=== PATIENT | male | born 1965 | race African-American/Black ===

== ENCOUNTER 2018-06-22 16:27 | Inpatient (IN) | END 2018-07-01 12:33 | DRG 853 ==

== ENCOUNTER 2018-06-30 18:30 | Inpatient (IN) | payer MEDICARE, MEDICAID ==
[~2018-06-30] VITALS: Ht 185.4 cm; Wt 108.0 kg
[~2018-06-30 18:30] MED LIST: BUPR-165 PO; METH10TA2 PO; RANI150T5 PO
[2018-07-01 12:45] VITALS: BP 155/78; PULSE 76; RESP 18
[2018-07-01] MEDS ORDERED: ACETAMINOPHEN 325 MG TAB PO PRN (13:00)
[2018-07-01] MEDS ORDERED: PENDING SANTYL ORDER FOR WOUND CARE XX PRN (13:00)
[2018-07-01] MEDS ORDERED: BISACODYL 10 MG SUPP PR PRN (13:00)
[2018-07-01] MEDS ORDERED: MAGNESIUM HYDROXIDE 30ML CUP PO PRN (13:00)
[2018-07-01] MEDS ORDERED: LACTULOSE 30ML CUP PO PRN (13:00)
[2018-07-01] MEDS ORDERED: BISACODYL (EC) 5 MG TAB PO PRN (13:30)
--- NOTE | 2018-07-01 14:00 | NUR ---
Admitted a 52 year old male patient from [address] [place] [address] bed admitting diagnosis of Polyarthritis due to Sickle Cell Anemia. Patient awake, alert and oriented x4. No noted respiratory distress or discomfort. Dr. Patrica Whitney and ORLANDO Hodge aware of admission with order to continue medications per medication reconciliation. Patient oriented to new room & encouraged the use of call light. Initial skin assessment done together with another RN. Noted with multiple bruising on lower abdomen and right foot external fixator. Patient kept clean and dry. Needs attended and anticipated. Will endorse to next shift.
[2018-07-01] MEDS: HYDROmorphONE 2 MG/ML SYG IV PRN ×2 (14:44→19:01)
[2018-07-01 20:05] VITALS: BP 155/79; PULSE 75; RESP 18
[2018-07-01] MEDS: SENNA TAB PO SCH (21:00)
[2018-07-01] MEDS: DOCUSATE SODIUM 100 MG CAP PO SCH (21:00)
[2018-07-01] MEDS: FLUTICASONE 0.05% 16 GM NAS SPRAY NASAL SCH (21:01)
[2018-07-01] MEDS: RANITIDINE 150 MG TAB PO SCH (21:03)
[2018-07-01] MEDS: METHADONE 10 MG TAB PO SCH (21:03)
[2018-07-01] MEDS: BUPROPION (SR) 150 MG TAB PO SCH (21:06)
[2018-07-02] MEDS: HYDROmorphONE 2 MG/ML SYG IV PRN ×4 (01:18→18:11)
[2018-07-02 02:05] VITALS: BP 147/81; PULSE 71; RESP 18
[2018-07-02] MEDS: RANITIDINE 150 MG TAB PO SCH ×2 (06:13→20:20)
--- NOTE | 2018-07-02 06:56 | NUR ---
PATIENT SLEPT WELL. MEDICATED WITH DILAUDID IV X 2 FOR SEVERE PAIN IN RT ANKLE. RT ANKLE WITH EXTERNAL FIXATOR. RECREATIONAL ACTIVITIES PROVIDED TO PATIENT; WATCHING TV. CALL LIGHT WITHIN REACH
--- NOTE | 2018-07-02 07:34 | NUR ---
Received critical lab result (Hgb 6.9). Texted on-call Hospitalist via [employer] at 0715. Seen and spoke to patient and per patient who is alert and oriented the result was usual for him. Per patient he usually go between 6-7.1. Patient is asymptomatic. Spoke with Dr. Arnett at 0721 and relayed report with new order for CBC at noon. Will continue to monitor patient.
[2018-07-02 07:50] VITALS: BP 143/76; PULSE 83; RESP 18
[2018-07-02] MEDS: FLUTICASONE 0.05% 16 GM NAS SPRAY NASAL SCH ×2 (08:36→20:20)
[2018-07-02] MEDS: BUPROPION (SR) 150 MG TAB PO SCH ×3 (08:36→20:20)
[2018-07-02] MEDS: METHADONE 10 MG TAB PO SCH ×2 (08:37→20:20)
[2018-07-02] MEDS: DOCUSATE SODIUM 100 MG CAP PO SCH ×2 (08:37→20:20)
--- NOTE | 2018-07-02 10:25 | NUR ---
PT EVALUATION: A 52 yo male admitted for elective surgery on RLE, presented with B ankle varus deformity. Per pt report, had B ankle fracture about a year ago, which caused the ankle deformities but surgery was delayed d/t recurrent ulcerations. Now s/p Rt ankle fusion with bone graft and external fixator on 07/07/18. Per pt, plan to have surgery for LLE once RLE has healed. PMH: mood disorder, sickle cell anemia, GERD, chronic ankle deformities, cholecystectomy, B ankle varus deformity, acute renal failure. Now transferred to [facility] for continuation of care and rehab. Pt is alert and oriented, agreeable to PT jeffy, cleared by RN. PLOF: reports living in a single story house with his mom. Has strong support system. Was independent with transfers and ADL's. Has 3 small entry steps from the front door, 2 small entry steps from the back door. CLOF: see tech record. Educated on POC, safety, role of PT, RLE NWB, LLE PWB, sequencing with good understanding. Pt transferred from bed<>WC via sliding board and via scoot pivot transfer. Pt able to follow RLE NWB and LLE PWB. Precautions: fall risk, RLE NWB, LLE PWB Recommendations: manual WC with elevating leg rest and removable arm rests, drop arm commode, sliding board, hospital bed, ramp for stairs, home with HHPT STG: Bed Mobility CGA Transfers CGA WC mobility SUP 150ft LTG: Bed Mobility Mod Ind Transfers Mod Ind WC mobility Nod Ind 150ft
--- NOTE | 2018-07-02 12:04 | NUR ---
Left a message to the office of Dr. Crook covering for Dr. Metz letting them know that the patient was transferred here at Rehab and if they could check up on the patient with complaints of having drainage on the right foot.
--- NOTE | 2018-07-02 12:47 | HP ---
Date/Time of Note Date/Time of Note DATE: 07/02/18 TIME: 12:33 Assessment/Plan VTE Prophylaxis Risk score (from Nsg)>0 risk: 3 SCD applied (from Nsg): Yes Pharmacological prophylaxis: heparin Lines/Catheters IV Catheter Type (from Nrsg): Saline Lock Urinary Cath still in place: No Assessment/Plan Hospital Course SUBJECTIVE: Lying in bed comfortably. Somewhat upset about repeating blood draw. Denies any worsening pain or other discomfort. OBJECTIVE: Vital signs-see below PHYSICAL EXAM: Constitutional: Pleasant -[place] male not in acute distress.. Psych: nl mood/affect, no complaints Head: atraumatic, normocephalic Eyes: nl conjunctiva, nl sclera ENMT: mucosa pink and moist, nl external ears & nose Neck: non-tender, supple Respiratory: clear to auscultation, normal air movement Cardiovascular: nl pulses, regular rate and rhythm Gastrointestinal: non-tender, soft, bowel sounds active in all 4 quadrants. Musculoskeletal/extremities: Right foot w/ dressing/boot, status post fixation surgery. Nl extremities to inspection, motor strength equal bilaterally, no focal deficit. Normal pulses,no cyanosis, no edema. Neurological: Alert oriented 3,nl speech, nl strength Skin: nl turgor ASSESSMENT/PLAN: 52-year-old male with sickle cell anemia, underwent right foot podiatric surgical intervention transferred for further physical therapy. 1. Bilateral ankle deformity s/p surgical intervention 06/27/18 - s/p right tibiocalcaneal fusion with autologous bone graft and multiplane external fixator. Will need to remain in fixator for the next 2 months per podiatry. - PT on board and appreciate recommendations. 2. ALCON on CKD- stable - Baseline Cr 1.6-1.8 -Stable 3. Chronic leukocytosis. -Monitor 4. Chronic pain - Patient is on methadone as outpatient which is managed by his Notcher - Palliative care consult to adjust his pain medications 5. Mood disorder - Continue Wellbutrin TID 6. GERD - H2 eze 7. Sickle cell anemia - Hgb at baseline and no need for transfusions at this time given asymptomatic - Baseline hgb 6.7-7 DVT prophylaxis: Heparin PUD prophylaxis: H2 blockers CODE STATUS: Full code Diet: Regular. Patient is medically stable for starting physical therapy in the unit. Approximately 60 minutes was spent on this history and physical. Patient was seen in collaboration with . HPI/ROS Admit Date/Time Admit Date/Time Jul 01, 2018 at 12:50 Hx of Present Illness 52-year-old -[place] male with a history of sickle cell anemia, chronic ankle deformities, debility, was admitted at [facility] on June 22, 2018 for elective surgical intervention for bilateral ankle deformity by the kindergarten paraprofessional. Patient did underwent surgery she did underwent right tibial calcaneal fusion with autologous bone graft and application of multiplane external fixator on 06/27/2018. Her postoperative course was noted for acute kidney injury on CKD and anemia. Patient had nephrology, cardiology and hematology evaluation. As per switch house operator, patient has a baseline hemoglobin 6.7-7 and he is to receive transfusion only if he is symptomatic or under the baseline numbers. Patient was then evaluated by physical therapy and was recommended to have nonweightbearing on right foot and was transferred to acute rehabilitation unit for further comprehensive physical therapy. At my encounter with the patient, he denied chest pain, palpitation, shortness of breath, nausea, vomiting, abdominal pain, loss of consciousness, numbness, tingling, fever, chills, or other constitutional symptoms. Labs show WBC 12,100, hemoglobin 6.9, hematocrit 21.8 and a repeat lab showed WBC 14,200, hemoglobin 7.3, hematocrit 23.2. BMP with BUN 24 and creatinine 1.46. UA unremarkable. Vital signs temperature 98.5, pulse rate 83, respiratory rate 18, blood pressure 143/76 and oxygen saturation 97% on room air. ROS A 12 point review of system was assessed and is negative other than what is mentioned in the HPI. PMH/Family/Social Past Medical History see HPI Coded Allergies: No Known Allergy (Unverified , 06/22/18) Past Surgical History See HPI Past Surgical Hx: cholecystectomy, other Family History Significant Family History: other Social History No history of alcohol, smoking or illicit drug use reported. Smoking Status: Never smoker Exam/Review of Systems Vital Signs Vitals Vital Signs Date Temp Pulse Resp B/P (MAP) Pulse Ox O2 O2 Flow FiO2 Time Delivery Rate 07/02/18 98.5 83 18 143/76 97 Room Air 07:50 (98) Intake and Output 07/01/18 07/01/18 07/02/18 1414:59 22:59 06:59 IntakeIntake Total 240 ml OutputOutput Total 200 ml BalanceBalance 40 ml Medications Medications Current Medications Docusate Sodium (Colace) 100 mg BID PO ; Start 07/01/18 at 21:00 Senna (Senokot) 1 tab HS PO ; Start 07/01/18 at 21:00 Magnesium Hydroxide (Milk Of Mag) 30 ml BID PRN PO CONSTIPATION; Start 07/01/18 at 13:00 Lactulose (Enulose) 20 gm DAILY PRN PO CONSTIPATION; Start 07/01/18 at 13:00 Bisacodyl (Dulcolax Supp) 10 mg DAILY PRN [place] CONSTIPATION; Start 07/01/18 at 13:00 Acetaminophen (Tylenol Tab) 650 mg Q4H PRN PO PAIN; Start 07/01/18 at 13:00 [facility]isc[facility] This patient wong... PRN PRN XX wound; Start 07/01/18 at 13:00 Bisacodyl (Dulcolax) 5 mg BID PRN PO CONSTIPATION; Start 07/01/18 at 13:30 Bupropion HCl (Wellbutrin Sr) 150 mg TID PO Last administered on 07/02/18at 12:12; Admin Dose 150 MG; Start 07/01/18 at 21:00 Clonidine (Catapres) 0.1 mg Q6H PRN PO HTN; Start 07/01/18 at 13:30 Fluticasone Propionate (Flonase 0.05% Nasal) 1 spray BID NASAL Last administered on 07/02/18at 08:36; Admin Dose 1 SPRAY; Start 07/01/18 at 21:00 Hydromorphone HCl (Dilaudid) 4 mg Q4H PRN IV SEVERE PAIN LEVEL 7-10 Last administered on 07/02/18at 06:12; Admin Dose 4 MG; Start 07/01/18 at 13:30 Methadone HCl (Methadone) 50 mg BID PO Last administered on 07/02/18at 08:37; Admin Dose 50 MG; Start 07/01/18 at 21:00 Ranitidine HCl (Zantac) 150 mg BID PO Last administered on 07/02/18at 06:13; Admin Dose 150 MG; Start 07/01/18 at 21:00 Simethicone (Mylicon) 160 mg Q6H PRN PO ACID Reflux; Start 07/01/18 at 13:30 Results Result Diagram: 07/02/18 1139 07/02/18 0616 Results 24 hrs Laboratory Tests Test 07/01/18 13:40 07/02/18 06:16 07/02/18 11:39 Urine Color YELLOW Urine Clarity CLEAR Urine pH 6.0 Urine Specific [place] 1.011 Urine Ketones NEGATIVE Urine Nitrite NEGATIVE Urine Bilirubin NEGATIVE Urine Urobilinogen NEGATIVE Urine Leukocyte Esterase TRACE A Urine Microscopic RBC 0 Urine Microscopic WBC 0 Urine Hemoglobin NEGATIVE Urine Glucose NEGATIVE Urine Total Protein 1+ H White Blood Count 12.1 H 14.2 H Red Blood Count 2.47 L 2.64 L Hemoglobin 6.9 *L 7.3 L Hematocrit 21.8 L 23.2 L Mean Corpuscular Volume 88.3 87.9 Mean Corpuscular Hemoglobin 27.9 L 27.7 L Mean Corpuscular 31.7 L 31.5 L Hemoglobin Concent Red Cell Distribution Width 22.3 H 22.0 H Platelet Count 366 388 Mean Platelet Volume 10.2 9.9 Immature Granulocytes % 1.200 H 1.200 H Neutrophils % 63.3 72.6 Lymphocytes % 19.3 13.4 L Monocytes % 8.9 7.4 Eosinophils % 6.8 4.8 Basophils % 0.5 0.6 Nucleated Red Blood Cells % 1.4 H 1.3 H Immature Granulocytes # 0.140 H 0.170 H Neutrophils # 7.7 H 10.3 H Lymphocytes # 2.3 1.9 Monocytes # 1.1 H 1.1 H Eosinophils # 0.8 H 0.7 H Basophils # 0.1 0.1 Nucleated Red Blood Cells # 0.2 H 0.2 H Sodium Level 142 Potassium Level 4.7 Chloride Level 108 Carbon Dioxide Level 26 Anion Gap 8 Blood Urea Nitrogen 24 H Creatinine 1.46 H Est Glomerular Filtrat > 60 Rate mL/min Glucose Level 101 Calcium Level 8.9 Total Bilirubin 0.9 Direct Bilirubin 0.00 Indirect Bilirubin 0.9 Aspartate Amino 61 H Transf (AST/SGOT) Alanine 56 Aminotransferase (ALT/SGPT) Alkaline Phosphatase 118 Total Protein 6.6 Albumin 3.2 L Globulin 3.40 H Albumin/Globulin Ratio 0.94 MORA BETH NP Jul 02, 2018 12:47
--- NOTE | 2018-07-02 13:16 | CONS ---
DATE OF ADMISSION: 07/01/2018 DATE OF CONSULTATION: 07/02/2018 REHABILITATION POST-ADMISSION PHYSICIAN EVALUATION REHABILITATION IMPAIRMENT CATEGORY: Polyarthritis/joint derangement due to sickle cell anemia, statu s post right tibial calcaneal fusion with external fixator. ACTIVE COMORBIDITIES: 1. Acute on chronic pain syndrome. 2. Sickle cell anemia. 3. Chronic kidney disease. 4. Colitis. 5. Mood disorder. 6. Impairments in self-care and mobility. HISTORY OF PRESENT ILLNESS: The patient is a pleasant 52-year-old gentleman with a history of sickle cell anemia in addition to joint derangement, who had been noting severe right ankle pain despite co nservative measures. The patient was admitted and underwent right tibial calcaneal fusion with exter nal fixator placement. His hospital course has been notable for some wound drainage, acute pain synd [place], and significant impairments in self-care and mobility as compared to baseline. The patient has been cleared to transfer to the rehabilitation unit for comprehensive interdisciplinary rehab care. FUNCTIONAL HISTORY: Prior to recent events, he was independent in self-care tasks and mobility. Cur rently, he requires minimal to moderate assist for self-care and mobility tasks. I have reviewed the preadmission screen and the patient's current functional status is consistent wit h the preadmission screen. FAMILY AND SOCIAL HISTORY: The patient lives at home with family and hopes to return there upon disc harge. PAST MEDICAL HISTORY: 1. Sickle cell anemia with joint derangement. 2. Gastroesophageal reflux disease. 3. Mood disorder. 4. History of colitis. CURRENT MEDICATIONS: 1. Wellbutrin 150 mg p.o. t.i.d. 2. Flonase. 3. Dilaudid p.r.n. 4. Methadone 50 mg b.i.d. 5. Simethicone p.r.n. ALLERGIES: The patient with no known drug allergies. PHYSICAL EXAMINATION: VITAL SIGNS: The patient is currently afebrile with stable vital signs. HEENT: Extraocular motions are intact. Oropharynx clear. NECK: Supple. LUNGS: Clear anteriorly. CARDIAC: S1, S2. ABDOMEN: Soft, nontender, positive bowel sounds. NEUROLOGIC: He is awake, alert and oriented x3, can follow simple 1-step commands. Cranial nerves g rossly intact. He demonstrates antigravity strength in bilateral upper extremity and the left lower extremity, external fixator on the right lower extremity. PLAN: The patient has been admitted for comprehensive interdisciplinary acute rehab and is anticipat ed to tolerate 3 hours of daily therapy in divided doses for at least 5/7 days a week. Treatment drew n will include: 1. Physical therapy to focus on bed mobility, transfers, wheelchair mobility, and limited household ambulation with the goal of having the patient reach a standby assist level. 2. Occupational therapy to focus on hygiene, grooming, dressing, bathing, and toileting activities w ith goal of having patient reach standby assist level. 3. Rehabilitation nursing for carryover of therapeutic interventions, the goal of continent of bowel and bladder, and the goal of pain adequately managed on oral medications. ESTIMATED LENGTH OF STAY: 10 days. DISPOSITION GOAL: Home with family. REHABILITATION BARRIER: Pain. INTERVENTION FOR BARRIER: Interdisciplinary approach. I acknowledge that I performed a full physical examination on this patient within 24 hours of admissi on to the rehabilitation unit. I believe the patient is a good candidate for comprehensive interdisc iplinary rehab care and is anticipated to make reasonable goals in a reasonable period of time as out lined above. Dictated By: FREDERIC SILVA MD LY/NTS Conf#: [id number] DID#: [id number] CC: FREDERIC SILVA MD;*EndCC*
--- NOTE | 2018-07-02 15:17 | NUR ---
Dr. Metz at bedside and spoke with the patient with instruction to keep the affected foot elevated with pillows and ice compress for swelling.
--- NOTE | 2018-07-02 15:55 | NUR ---
Education and explanation provided regarding Therapeutic Outing and provided the handout as well.
--- NOTE | 2018-07-02 16:04 | CONS ---
Date/Time of Note Date/Time of Note DATE: 07/02/18 TIME: 16:04 Assessment/Plan Assessment/Plan Additional Assessment/Plan 1) Adult acquired club foot deformity b/l s/p RLE hindfoot fusion and application of ex-fix 2) Sickle cell anemia 3) Edema RLE 4) Chronic pain 5) Leukocytosis Plan: Recommend patient to be non-weight right lower extremity. Only use left lower extremity for transfers. Continue with pain control. Emphasized nursing staff to elevate right lower extremity with pillows and to ice the area. X-rays ordered due to the bent wires of the right foot. Patient does not recall any inciting event leading to the bent wires. Safety precautions reinforced. Continue with DVT prophylaxis. Medical decisions, treatment, and plan coordinated with Dr. Crook. Consultation Date/Type/Reason Admit Date/Time Jul 01, 2018 at 12:50 Hx of Present Illness 52 y/o M patient with hx of sickle cell anemia and bilateral adult acquired club foot deformity. Patient had hindfoot arthrodesis with application of ilizarov external fixator on 06/27/18. Patient is at the acute rehab floor for further physical therapy and monitoring. Patient noted clear draining to this dressings. Denies f/c/n/v, no chest pain or shortness of breath. Denies any damage or trauma to the surgery site. ROS: negative except HPI. Past Medical History sickle cell anemia, adult acquired club foot deformity b/l Past Surgical History Past Surgical Hx: cholecystectomy, other Social History Alcohol Use: none Smoking Status: Never smoker Exam/Review of Systems Vital Signs Vitals Vital Signs Date Temp Pulse Resp B/P (MAP) Pulse Ox O2 O2 Flow FiO2 Time Delivery Rate 07/02/18 98.5 83 18 143/76 97 Room Air 07:50 (98) Intake and Output 07/01/18 07/01/18 07/02/18 1414:59 22:59 06:59 IntakeIntake Total 240 ml OutputOutput Total 200 ml BalanceBalance 40 ml Exam Plantar pins which appear bent. Ex-fix in rectus alignment. No sign of wound dehiscence to the incision site. Non-pitting edema to the right lower extremity. There is serous drainage noted to the pin site. Mild pain on palpation to right lower extremity surgery site. There is no loosening of the ex-fix appreciated. Capillary refill time to digits less than 3 seconds. Medications Medications Current Medications Docusate Sodium (Colace) 100 mg BID PO ; Start 07/01/18 at 21:00 Senna (Senokot) 1 tab HS PO ; Start 07/01/18 at 21:00 Magnesium Hydroxide (Milk Of Mag) 30 ml BID PRN PO CONSTIPATION; Start 07/01/18 at 13:00 Lactulose (Enulose) 20 gm DAILY PRN PO CONSTIPATION; Start 07/01/18 at 13:00 Bisacodyl (Dulcolax Supp) 10 mg DAILY PRN [place] CONSTIPATION; Start 07/01/18 at 13:00 Acetaminophen (Tylenol Tab) 650 mg Q4H PRN PO PAIN; Start 07/01/18 at 13:00 Miscellaneous Information (Pending [facility] Order For Wound Care) This patient wong... PRN PRN XX wound; Start 07/01/18 at 13:00 Bisacodyl (Dulcolax) 5 mg BID PRN PO CONSTIPATION; Start 07/01/18 at 13:30 Bupropion HCl (Wellbutrin Sr) 150 mg TID PO Last administered on 07/02/18at 12:12; Admin Dose 150 MG; Start 07/01/18 at 21:00 Clonidine (Catapres) 0.1 mg Q6H PRN PO HTN; Start 07/01/18 at 13:30 Fluticasone Propionate (Flonase 0.05% Nasal) 1 spray BID NASAL Last administered on 07/02/18at 08:36; Admin Dose 1 SPRAY; Start 07/01/18 at 21:00 Hydromorphone HCl (Dilaudid) 4 mg Q4H PRN IV SEVERE PAIN LEVEL 7-10 Last administered on 07/02/18at 13:57; Admin Dose 4 MG; Start 07/01/18 at 13:30 Methadone HCl (Methadone) 50 mg BID PO Last administered on 07/02/18at 08:37; Admin Dose 50 MG; Start 07/01/18 at 21:00 Ranitidine HCl (Zantac) 150 mg BID PO Last administered on 07/02/18at 06:13; Admin Dose 150 MG; Start 07/01/18 at 21:00 Simethicone (Mylicon) 160 mg Q6H PRN PO ACID Reflux; Start 07/01/18 at 13:30 Heparin Sodium (Porcine) (Heparin (5000 Units/1ml)) 5,000 unit BID SC ; Start 07/02/18 at 21:00 Results Result Diagram: 07/02/18 1139 07/02/18 0616 Results 24 hrs Laboratory Tests Test 07/02/18 06:16 07/02/18 11:39 White Blood Count 12.1 H 14.2 H Red Blood Count 2.47 L 2.64 L Hemoglobin 6.9 *L 7.3 L Hematocrit 21.8 L 23.2 L Mean Corpuscular Volume 88.3 87.9 Mean Corpuscular Hemoglobin 27.9 L 27.7 L Mean Corpuscular Hemoglobin Concent 31.7 L 31.5 L Red Cell Distribution Width 22.3 H 22.0 H Platelet Count 366 388 Mean Platelet Volume 10.2 9.9 Immature Granulocytes % 1.200 H 1.200 H Neutrophils % 63.3 72.6 Lymphocytes % 19.3 13.4 L Monocytes % 8.9 7.4 Eosinophils % 6.8 4.8 Basophils % 0.5 0.6 Nucleated Red Blood Cells % 1.4 H 1.3 H Immature Granulocytes # 0.140 H 0.170 H Neutrophils # 7.7 H 10.3 H Lymphocytes # 2.3 1.9 Monocytes # 1.1 H 1.1 H Eosinophils # 0.8 H 0.7 H Basophils # 0.1 0.1 Nucleated Red Blood Cells # 0.2 H 0.2 H Sodium Level 142 Potassium Level 4.7 Chloride Level 108 Carbon Dioxide Level 26 Anion Gap 8 Blood Urea Nitrogen 24 H Creatinine 1.46 H Est Glomerular Filtrat Rate mL/min > 60 Glucose Level 101 Calcium Level 8.9 Total Bilirubin 0.9 Direct Bilirubin 0.00 Indirect Bilirubin 0.9 Aspartate Amino Transf (AST/SGOT) 61 H Alanine Aminotransferase (ALT/SGPT) 56 Alkaline Phosphatase 118 Total Protein 6.6 Albumin 3.2 L Globulin 3.40 H Albumin/Globulin Ratio 0.94 MARCELINA COATES DPM Jul 02, 2018 16:04
--- NOTE | 2018-07-02 18:58 | NUR ---
End of shift summary note Patient alert, oriented and able to make needs known with complaints of pain during the shift and was provided with pain medication; relief noted. All due medications given. Call light and bedside table placed within reach. Bed placed in lowest position. Recreational activity provided like watching TV. Needs attended and continues monitoring provided. Will endorse to next shift.
[2018-07-02] MEDS ORDERED: HEPARIN 5,000 UNIT/0.5 ML VIAL ONE (20:12)
[2018-07-02 20:18] VITALS: BP 143/7; PULSE 82; RESP 18
[2018-07-02] MEDS: SENNA TAB PO SCH (20:20)
[2018-07-02] MEDS: HEPARIN 5,000 UNIT/1 ML VIAL SC SCH (20:23)
[2018-07-03] MEDS: HYDROmorphONE 2 MG/ML SYG IV PRN ×6 (00:28→23:29)
[2018-07-03 02:15] VITALS: BP 140/65; PULSE 75
--- NOTE | 2018-07-03 06:01 | NUR ---
Pt is alert & oriented x4. No significant changes noted during my shift. Pt complained of right leg pain and medicated with PRN Dilaudid with relief noted. Pt is continent of both bowel and bladder; no BM noted. All due medications and all needs attended. Hourly roundings done. Bed alarm activated. Both side rails up and call light within reach.
[2018-07-03 08:00] VITALS: BP 128/68; PULSE 86; RESP 18
[2018-07-03] MEDS ORDERED: HEPARIN 5,000 UNIT/0.5 ML VIAL ONE ×2 (08:15→20:24)
[2018-07-03] MEDS: DOCUSATE SODIUM 100 MG CAP PO SCH ×2 (08:29→21:05)
[2018-07-03] MEDS: BUPROPION (SR) 150 MG TAB PO SCH ×3 (08:29→21:06)
[2018-07-03] MEDS: RANITIDINE 150 MG TAB PO SCH ×2 (08:29→21:06)
[2018-07-03] MEDS: METHADONE 10 MG TAB PO SCH ×2 (08:30→21:05)
[2018-07-03] MEDS: HEPARIN 5,000 UNIT/1 ML VIAL SC SCH ×2 (08:31→21:31)
--- NOTE | 2018-07-03 09:02 | CONS ---
Date/Time of Note Date/Time of Note DATE: 07/03/18 TIME: 09:01 Consultation Date/Type/Reason Admit Date/Time Jul 01, 2018 at 12:50 Hx of Present Illness Assessment/Plan Initial Consultation HPI Consultation Date/Type/Reason Admit Date/Time Jun 22, 2018 at 16:27 Hx of Present Illness Patient has been moved to rehabilitation kwong. Apparently the screws in his ankle and according to patient and he is waiting for the results of imaging s tudies done yesterday. He requests no change in his current pain control medications until studies return and orthopedic surgery makes the recommendation. Sickle cell symptoms are under control. This is a very pleasant 52-year-old gentleman who presents to [facility] for elective right ankle ORIF. Please refer to dictated details of upcoming surgical intervention. I am asked to see patient in pain management consultation. This gentleman has a long-standing history of sickle cell disease SS diagnosed in childhood. He has approximately 4 crises per year which she is able to treat effectively at home without hospitalization. He has had applications related to sickle cell including bilateral lower extremity vaso-occlusive disease right lung pneumonia with pleural effusion status post cholecystectomy. As a child he has had one bout of osteomyelitis. Of his left lower extremity. She currently is pain-free. Purpose of the consultation is to get an outpatient and to control his pain postoperatively. He has been admitted and is being transfused in preparation for upcoming surgical procedure. Patient is currently pain control medication given to him by his primary care sewage plant attendant include methadone 10 mg to be taken 5 pills twice daily scheduled. States he has been on this regimen for prolonged period of time he tries to avoid short acting opioids during hospitalization has quite a use of Dilaudid as necessary. Once again patient is pain-free at this time. He has no past medical history of IV drug abuse. He is not a smoker nor drinker he does not be appear to be unkempt or impaired in any manner is not advocating the use of high doses of short acting opioids per noisy insisting on certain pain control medications. There is no past medical history of contact with street drug culture, adamantly adamantly denies illicit drug use. Constitutional: no complaints, improved Eyes: no complaints; No pain, No discharge, No redness, No visual change, No other ENT: no complaints Respiratory: no complaints; No pain, No cough, No pleuritic pain, No shortness of breath, No sputum, No wheezing, No other Cardiovascular: no complaints; No chest pain, No edema, No lightheadedness, No orthopenea, No palpitations, No paroxysmal nocturnal dyspnea, No other Gastrointestinal: no complaints; No pain, No blood, No constipation, No decreased appetite, No diarrhea, No flatus, No nausea, No passing stool, No vomiting, No other Genitourinary: no complaints; No bleeding, No dysuria, No discharge, No flank pain, No hematuria, No other Musculoskeletal: other (Refer to history of present illness) Initial Consultation Hx Past Medical History Medical History: other (Elsa syndrome and depression) Past Surgical History Past Surgical Hx: cholecystectomy, other Social History Alcohol Use: none Smoking Status: Never smoker Drug Use: none Exam/Review of Systems Exam/Review of Systems Vital Signs Vitals Vital Signs Date Temp Pulse Resp B/P (MAP) Pulse Ox O2 O2 Flow FiO2 Time Delivery Rate 07/01/18 98.2 85 18 133/79 100 Room Air 07:18 (97) Exam Constitutional: alert, oriented, well developed Psych: no complaints, nl mood/affect ENMT: nl external ears & nose, nl lips & teeth, nl nasal mucosa & septum Respiratory: clear to auscultation, normal air movement; No congested cough, No crackles/rales, No diminished breath sounds, No intercostal retraction, No labored breathing, No respirations, No tactile fremitus, No wheezing, No other Cardiovascular: regular rate and rhythm, nl pulses; No bruits, No diastolic murmur, No edema, No gallop, No irregular rhythm, No jugular venous distention (JVD), No murmurs/extra sounds, No rub, No systolic murmur, No S3, No S4, No other Neurological: REMOTE ADVISOR II-XII intact, nl mental status, nl speech, nl strength Results Result Diagram: 07/01/18 1202 07/01/18 0435 Copies To: Copies To: PETROS LÓPEZ Jul 03, 2018 08:59 Past Surgical History Past Surgical Hx: cholecystectomy, other Social History Alcohol Use: none Smoking Status: Never smoker Exam/Review of Systems Vital Signs Vitals Vital Signs Date Temp Pulse Resp B/P (MAP) Pulse Ox O2 O2 Flow FiO2 Time Delivery Rate 07/03/18 98.1 75 140/65 98 Room Air 02:15 (90) 07/02/18 18 20:18 Intake and Output 07/02/18 07/02/18 07/03/18 1515:00 23:00 07:00 IntakeIntake Total 300 ml 800 ml OutputOutput Total 800 ml 530 ml 2180 ml BalanceBalance -500 ml 270 ml -2180 ml Medications Medications Current Medications Docusate Sodium (Colace) 100 mg BID PO Last administered on 07/03/18at 08:29; Admin Dose 100 MG; Start 07/01/18 at 21:00 Senna (Senokot) 1 tab HS PO Last administered on 07/02/18at 20:20; Admin Dose 1 TAB; Start 07/01/18 at 21:00 Magnesium Hydroxide (Milk Of Mag) 30 ml BID PRN PO CONSTIPATION; Start 07/01/18 at 13:00 Lactulose (Enulose) 20 gm DAILY PRN PO CONSTIPATION; Start 07/01/18 at 13:00 Bisacodyl (Dulcolax Supp) 10 mg DAILY PRN [place] CONSTIPATION; Start 07/01/18 at 13:00 Acetaminophen (Tylenol Tab) 650 mg Q4H PRN PO PAIN; Start 07/01/18 at 13:00 Miscellaneous Information (Pending [facility] Order For Wound Care) This patient wong... PRN PRN XX wound; Start 07/01/18 at 13:00 Bisacodyl (Dulcolax) 5 mg BID PRN PO CONSTIPATION; Start 07/01/18 at 13:30 Bupropion HCl (Wellbutrin Sr) 150 mg TID PO Last administered on 07/03/18at 08:29; Admin Dose 150 MG; Start 07/01/18 at 21:00 Clonidine (Catapres) 0.1 mg Q6H PRN PO HTN; Start 07/01/18 at 13:30 Fluticasone Propionate (Flonase 0.05% Nasal) 1 spray BID NASAL Last administered on 07/02/18at 20:20; Admin Dose 1 SPRAY; Start 07/01/18 at 21:00 Hydromorphone HCl (Dilaudid) 4 mg Q4H PRN IV SEVERE PAIN LEVEL 7-10 Last administered on 07/03/18at 08:28; Admin Dose 4 MG; Start 07/01/18 at 13:30 Methadone HCl (Methadone) 50 mg BID PO Last administered on 07/03/18at 08:30; Admin Dose 50 MG; Start 07/01/18 at 21:00 Ranitidine HCl (Zantac) 150 mg BID PO Last administered on 07/03/18at 08:29; Admin Dose 150 MG; Start 07/01/18 at 21:00 Simethicone (Mylicon) 160 mg Q6H PRN PO ACID Reflux; Start 07/01/18 at 13:30 Heparin Sodium (Porcine) (Heparin (5000 Units/1ml)) 5,000 unit BID SC Last administered on 07/03/18at 08:31; Admin Dose 5,000 UNIT; Start 07/02/18 at 21:00 Results Result Diagram: 07/02/18 1139 07/02/18 0616 Results 24 hrs Laboratory Tests Test 07/02/18 11:39 White Blood Count 14.2 H Red Blood Count 2.64 L Hemoglobin 7.3 L Hematocrit 23.2 L Mean Corpuscular Volume 87.9 Mean Corpuscular Hemoglobin 27.7 L Mean Corpuscular Hemoglobin Concent 31.5 L Red Cell Distribution Width 22.0 H Platelet Count 388 Mean Platelet Volume 9.9 Immature Granulocytes % 1.200 H Neutrophils % 72.6 Lymphocytes % 13.4 L Monocytes % 7.4 Eosinophils % 4.8 Basophils % 0.6 Nucleated Red Blood Cells % 1.3 H Immature Granulocytes # 0.170 H Neutrophils # 10.3 H Lymphocytes # 1.9 Monocytes # 1.1 H Eosinophils # 0.7 H Basophils # 0.1 Nucleated Red Blood Cells # 0.2 H PETROS LÓPEZ Jul 03, 2018 09:02
[2018-07-03] MEDS: FLUTICASONE 0.05% 16 GM NAS SPRAY NASAL SCH ×2 (10:23→21:00)
--- NOTE | 2018-07-03 12:17 | PN ---
Date/Time of Note Date/Time of Note DATE: 07/03/18 TIME: 12:15 Assessment/Plan VTE Prophylaxis Risk score (from Nsg)>0 risk: 5 SCD applied (from Ns): Yes Pharmacological prophylaxis: heparin Lines/Catheters IV Catheter Type (from Nrsg): Saline Lock Urinary Cath still in place: No Assessment/Plan Assessment/Plan Pt is doing well after surgery. Hgb is stable and no transfusion suggested now. I will follow intermittently. Please contact if there are any questions. Subjective 24 Hr Interval Summary Free Text/Dictation Pt is transferred to Rehab. He is not weight bearing on the operated foot. Exam/Review of Systems Vital Signs Vitals Vital Signs Date Temp Pulse Resp B/P (MAP) Pulse Ox O2 O2 Flow FiO2 Time Delivery Rate 07/03/18 98.2 86 18 128/68 98 Room Air 08:00 (88) Intake and Output 07/02/18 07/02/18 07/03/18 1515:00 23:00 07:00 IntakeIntake Total 300 ml 800 ml OutputOutput Total 800 ml 530 ml 2180 ml BalanceBalance -500 ml 270 ml -2180 ml Exam Constitutional: alert, oriented Head: normocephalic Eyes: other (pallor) Neck: supple Respiratory: clear to auscultation Cardiovascular: regular rate and rhythm Gastrointestinal: soft, non-tender Extremities: other (right foot dressed from surgery) Medications Medications Current Medications Docusate Sodium (Colace) 100 mg BID PO Last administered on 07/03/18at 08:29; Admin Dose 100 MG; Start 07/01/18 at 21:00 Senna (Senokot) 1 tab HS PO Last administered on 07/02/18at 20:20; Admin Dose 1 TAB; Start 07/01/18 at 21:00 Magnesium Hydroxide (Milk Of Mag) 30 ml BID PRN PO CONSTIPATION; Start 07/01/18 at 13:00 Lactulose (Enulose) 20 gm DAILY PRN PO CONSTIPATION; Start 07/01/18 at 13:00 Bisacodyl (Dulcolax Supp) 10 mg DAILY PRN [place] CONSTIPATION; Start 07/01/18 at 13:00 Acetaminophen (Tylenol Tab) 650 mg Q4H PRN PO PAIN; Start 07/01/18 at 13:00 Miscellaneous Information (Pending [facility] Order For Wound Care) This patient wong... PRN PRN XX wound; Start 07/01/18 at 13:00 Bisacodyl (Dulcolax) 5 mg BID PRN PO CONSTIPATION; Start 07/01/18 at 13:30 Bupropion HCl (Wellbutrin Sr) 150 mg TID PO Last administered on 07/03/18 08:29; Admin Dose 150 MG; Start 07/01/18 at 21:00 Clonidine (Catapres) 0.1 mg Q6H PRN PO HTN; Start 07/01/18 at 13:30 Fluticasone Propionate (Flonase 0.05% Nasal) 1 spray BID NASAL Last administered on 07/03/18 10:23; Admin Dose 1 SPRAY; Start 07/01/18 at 21:00 Hydromorphone HCl (Dilaudid) 4 mg Q4H PRN IV SEVERE PAIN LEVEL 7-10 Last administered on 07/03/18 08:28; Admin Dose 4 MG; Start 07/01/18 at 13:30 Methadone HCl (Methadone) 50 mg BID PO Last administered on 07/03/18 08:30; Admin Dose 50 MG; Start 07/01/18 at 21:00 Ranitidine HCl (Zantac) 150 mg BID PO Last administered on 07/03/18 08:29; Admin Dose 150 MG; Start 07/01/18 at 21:00 Simethicone (Mylicon) 160 mg Q6H PRN PO ACID Reflux; Start 07/01/18 at 13:30 Heparin Sodium (Porcine) (Heparin (5000 Units/1ml)) 5,000 unit BID SC Last administered on 07/03/18at 08:31; Admin Dose 5,000 UNIT; Start 07/02/18 at 21:00 Results Result Diagram: 07/02/18 1139 07/02/18 0616 MELBA CHÁVEZ MD Jul 03, 2018 12:17
--- NOTE | 2018-07-03 12:38 | PN ---
Date/Time of Note Date/Time of Note DATE: 07/03/18 TIME: 12:33 Assessment/Plan VTE Prophylaxis Risk score (from Nsg)>0 risk: 5 SCD applied (from Nsg): Yes Pharmacological prophylaxis: heparin Lines/Catheters IV Catheter Type (from Nrsg): Saline Lock Urinary Cath still in place: No Assessment/Plan Hospital Course SUBJECTIVE: No acute episodes. Pain is controlled. Participating with physical therapy. OBJECTIVE: Vital signs-see below PHYSICAL EXAM: Constitutional: Pleasant -Armenian male not in acute distress.. Psych: nl mood/affect, no complaints Head: atraumatic, normocephalic Eyes: nl conjunctiva, nl sclera ENMT: mucosa pink and moist, nl external ears & nose Neck: non-tender, supple Respiratory: clear to auscultation, normal air movement Cardiovascular: nl pulses, regular rate and rhythm Gastrointestinal: non-tender, soft, bowel sounds active in all 4 quadrants. Musculoskeletal/extremities: Right foot w/ dressing/boot, status post fixation surgery. Nl extremities to inspection, motor strength equal bilaterally, no focal deficit. Normal pulses,no cyanosis, no edema. Neurological: Alert oriented 3,nl speech, nl strength Skin: nl turgor ASSESSMENT/PLAN: 52-year-old male with sickle cell anemia, underwent right foot podiatric surgical intervention transferred for further physical therapy. 1. Bilateral ankle deformity s/p surgical intervention 06/27/18 - s/p right tibiocalcaneal fusion with autologous bone graft and multiplane external fixator. Will need to remain in fixator for the next 2 months per podiatry. - PT on board and appreciate recommendations. 2. ALCON on CKD- stable - Baseline Cr 1.6-1.8 -Stable 3. Chronic leukocytosis. -Monitor 4. Chronic pain - Patient is on methadone as outpatient which is managed by his Dairy Products Maker - On Dilaudid for breakthrough pain as well,Palliative care managing pain medications 5. Mood disorder - Continue Wellbutrin TID 6. GERD - H2 eze 7. Sickle cell anemia - Baseline hgb 6.7-7 -stable. DVT prophylaxis: Heparin PUD prophylaxis: H2 blockers CODE STATUS: Full code Diet: Regular. Patient was seen in collaboration with . Exam/Review of Systems Vital Signs Vitals Vital Signs Date Temp Pulse Resp B/P (MAP) Pulse Ox O2 O2 Flow FiO2 Time Delivery Rate 07/03/18 98.2 86 18 128/68 98 Room Air 08:00 (88) Intake and Output 07/02/18 07/02/18 07/03/18 1515:00 23:00 07:00 IntakeIntake Total 300 ml 800 ml OutputOutput Total 800 ml 530 ml 2180 ml BalanceBalance -500 ml 270 ml -2180 ml Medications Medications Current Medications Docusate Sodium (Colace) 100 mg BID PO Last administered on 07/03/18at 08:29; Admin Dose 100 MG; Start 07/01/18 at 21:00 Senna (Senokot) 1 tab HS PO Last administered on 07/02/18at 20:20; Admin Dose 1 TAB; Start 07/01/18 at 21:00 Magnesium Hydroxide (Milk Of Mag) 30 ml BID PRN PO CONSTIPATION; Start 07/01/18 at 13:00 Lactulose (Enulose) 20 gm DAILY PRN PO CONSTIPATION; Start 07/01/18 at 13:00 Bisacodyl (Dulcolax Supp) 10 mg DAILY PRN [place] CONSTIPATION; Start 07/01/18 at 13:00 Acetaminophen (Tylenol Tab) 650 mg Q4H PRN PO PAIN; Start 07/01/18 at 13:00 Miscellaneous Information (Pending [facility] Order For Wound Care) This patient wong... PRN PRN XX wound; Start 07/01/18 at 13:00 Bisacodyl (Dulcolax) 5 mg BID PRN PO CONSTIPATION; Start 07/01/18 at 13:30 Bupropion HCl (Wellbutrin Sr) 150 mg TID PO Last administered on 07/03/18at 08:29; Admin Dose 150 MG; Start 07/01/18 at 21:00 Clonidine (Catapres) 0.1 mg Q6H PRN PO HTN; Start 07/01/18 at 13:30 Fluticasone Propionate (Flonase 0.05% Nasal) 1 spray BID NASAL Last administered on 07/03/18at 10:23; Admin Dose 1 SPRAY; Start 07/01/18 at 21:00 Hydromorphone HCl (Dilaudid) 4 mg Q4H PRN IV SEVERE PAIN LEVEL 7-10 Last administered on 07/03/18at 08:28; Admin Dose 4 MG; Start 07/01/18 at 13:30 Methadone HCl (Methadone) 50 mg BID PO Last administered on 07/03/18at 08:30; Admin Dose 50 MG; Start 07/01/18 at 21:00 Ranitidine HCl (Zantac) 150 mg BID PO Last administered on 07/03/18at 08:29; Admin Dose 150 MG; Start 07/01/18 at 21:00 Simethicone (Mylicon) 160 mg Q6H PRN PO ACID Reflux; Start 07/01/18 at 13:30 Heparin Sodium (Porcine) (Heparin (5000 Units/1ml)) 5,000 unit BID SC Last administered on 07/03/18at 08:31; Admin Dose 5,000 UNIT; Start 07/02/18 at 21:00 Results Result Diagram: 07/02/18 1139 07/02/18 0616 MORA BETH NP Jul 03, 2018 12:38
[2018-07-03 14:00] VITALS: BP 138/78; PULSE 80; RESP 18
--- NOTE | 2018-07-03 18:05 | PN ---
Date/Time of Note Date/Time of Note DATE: 07/03/18 TIME: 18:05 Assessment/Plan VTE Prophylaxis Risk score (from Ns)>0 risk: 3 SCD applied (from Ns): Yes Pharmacological prophylaxis: heparin Lines/Catheters IV [facility]from [facility] Saline Lock Assessment/Plan Hospital Course 52 y/o M patient with hx of sickle cell anemia and bilateral adult acquired club foot deformity. Patient had hindfoot arthrodesis with application of ilizarov external fixator on 06/27/18. Patient is at the acute rehab floor for further physical therapy and monitoring. Patient noted clear draining to this dressings. Denies f/c/n/v, no chest pain or shortness of breath. Denies any damage or trauma to the surgery site. Assessment/Plan 1) Adult acquired club foot deformity b/l s/p RLE hindfoot fusion and application of ex-fix 2) Sickle cell anemia 3) Edema RLE 4) Chronic pain 5) Leukocytosis Plan: Recommend patient to be non-weight right lower extremity. Only use left lower extremity for transfers. Continue with pain control. Emphasized nursing staff to elevate right lower extremity with pillows and or soft wedge elevator. X- rays ordered due to the bent wires of the right foot and noted rectus alignment of the hindfoot with no damage to internal pin fixation. No hardware failure. Safety precautions reinforced. Continue with DVT prophylaxis. IV abx for 1 week for prophylaxis. Medical decisions, treatment, and plan coordinated with Dr. Crook. Subjective 24 Hr Interval Summary Free Text/Dictation No acute events overnight. Exam/Review of Systems Vital Signs Vitals Vital Signs Date Temp Pulse Resp B/P (MAP) Pulse Ox O2 O2 Flow FiO2 Time Delivery Rate 07/03/18 98.1 80 18 138/78 95 Room Air 14:00 (98) Intake and Output 07/02/18 07/02/18 07/03/18 1515:00 23:00 07:00 IntakeIntake Total 300 ml 800 ml OutputOutput Total 800 ml 530 ml 2180 ml BalanceBalance -500 ml 270 ml -2180 ml Exam Ex-fix in rectus alignment. No sign of wound dehiscence to the incision site. Non-pitting edema to the right lower extremity. There is serous drainage noted to the proximal tibial pin site. Mild pain on palpation to right lower extremity surgery site. There is no loosening of the ex-fix appreciated. C apillary refill time to digits less than 3 seconds. Medications Medications Current Medications Docusate Sodium (Colace) 100 mg BID PO Last administered on 07/03/18at 08:29; Admin Dose 100 MG; Start 07/01/18 at 21:00 Senna (Senokot) 1 tab HS PO Last administered on 07/02/18at 20:20; Admin Dose 1 TAB; Start 07/01/18 at 21:00 Magnesium Hydroxide (Milk Of Mag) 30 ml BID PRN PO CONSTIPATION; Start 07/01/18 at 13:00 Lactulose (Enulose) 20 gm DAILY PRN PO CONSTIPATION; Start 07/01/18 at 13:00 Bisacodyl (Dulcolax Supp) 10 mg DAILY PRN [place] CONSTIPATION; Start 07/01/18 at 13:00 Acetaminophen (Tylenol Tab) 650 mg Q4H PRN PO PAIN; Start 07/01/18 at 13:00 Miscellaneous Information (Pending [facility] Order For Wound Care) This patient wong... PRN PRN XX wound; Start 07/01/18 at 13:00 Bisacodyl (Dulcolax) 5 mg BID PRN PO CONSTIPATION; Start 07/01/18 at 13:30 Bupropion HCl (Wellbutrin Sr) 150 mg TID PO Last administered on 07/03/18at 1 4:56; Admin Dose 150 MG; Start 07/01/18 at 21:00 Clonidine (Catapres) 0.1 mg Q6H PRN PO HTN; Start 07/01/18 at 13:30 Fluticasone Propionate (Flonase 0.05% Nasal) 1 spray BID NASAL Last administere d on 07/03/18at 10:23; Admin Dose 1 SPRAY; Start 07/01/18 at 21:00 Hydromorphone HCl (Dilaudid) 4 mg Q4H PRN IV SEVERE PAIN LEVEL 7-10 Last administered on 07/03/18at 14:47; Admin Dose 4 MG; Start 07/01/18 at 13:30 Methadone HCl (Methadone) 50 mg BID PO Last administered on 07/03/18at 08:30; Admin Dose 50 MG; Start 07/01/18 at 21:00 Ranitidine HCl (Zantac) 150 mg BID PO Last administered on 07/03/18at 08:29; Admin Dose 150 MG; Start 07/01/18 at 21:00 Simethicone (Mylicon) 160 mg Q6H PRN PO ACID Reflux; Start 07/01/18 at 13:30 Heparin Sodium (Porcine) (Heparin (5000 Units/1ml)) 5,000 unit BID SC Last administered on 07/03/18at 08:31; Admin Dose 5,000 UNIT; Start 07/02/18 at 21:00 Results Result Diagram: 07/02/18 1139 07/02/18 0616 MARCELINA COATES DPM Jul 03, 2018 18:05
--- NOTE | 2018-07-03 18:30 | NUR ---
Nursing Notes: patiewnt was seen by Dr. Metz today and dressing was not done, he will continue to follow up patient in [place]. Patient was pain medicated as needed.
--- NOTE | 2018-07-03 19:00 | NUR ---
Nursing Notes: patient to start on IV Antibiotic but medicine not available , RN called Pharmacy @ 1800H , as per Staff the medicine was with the pharmacy runner to deliver in the Unit. At 1830 IV still not available and follow up in Pharmacy. At 1900 H medication still not available, endorse to KAMALA Huerta to follow up. As per Dr. Metz the patient can use the elevator pillow as per therapist treatmen.
[2018-07-03 19:41] VITALS: BP 162/77; PULSE 78; RESP 18
[2018-07-03] MEDS: SENNA TAB PO SCH (21:00)
[2018-07-03] MEDS: CEFTRIAXONE 1 GM/50 ML (PMX) 50 ML IVPB SCH (21:07)
[2018-07-04 02:00] VITALS: BP 135/65; PULSE 85; RESP 18
--- NOTE | 2018-07-04 03:11 | NUR ---
PT SLEEPS ON OFF DURING THE SHIFT. C/O PAIN ON HIS RIGHT LEG 12/28, METHADONE AND DILAUDID GIVEN, PARTIALLY EFFECTIVE. PT REFUSED BED ALARM, CHARGE NURSE INFORMED TO CANCER SPEC SUSY. EXPLAINED TO PT RISKS AND BENEFITS BUT PT STILL REFUSED. HOURLY ROUNDING MADE. ALL NEEDS ATTENDED. STARTED ROCEPHIN IV PER SCHEDULE. CHAD IS PATENT AND INTACT. CALL LIGHT AND TABLE ARE WITHIN REACH.
[2018-07-04] MEDS: HYDROmorphONE 2 MG/ML SYG IV PRN ×5 (05:03→17:51)
[2018-07-04 07:30] VITALS: BP 156/69; PULSE 81; RESP 20
[2018-07-04] MEDS ORDERED: HEPARIN 5,000 UNIT/0.5 ML VIAL ONE ×2 (08:37→21:26)
[2018-07-04] MEDS: METHADONE 10 MG TAB PO SCH ×2 (08:52→21:34)
[2018-07-04] MEDS: DOCUSATE SODIUM 100 MG CAP PO SCH ×2 (08:53→21:33)
[2018-07-04] MEDS: RANITIDINE 150 MG TAB PO SCH ×2 (08:53→21:33)
[2018-07-04] MEDS: BUPROPION (SR) 150 MG TAB PO SCH ×3 (08:53→21:33)
[2018-07-04] MEDS: HEPARIN 5,000 UNIT/1 ML VIAL SC SCH ×2 (08:57→21:32)
[2018-07-04] MEDS: FLUTICASONE 0.05% 16 GM NAS SPRAY NASAL SCH ×2 (08:57→21:33)
--- NOTE | 2018-07-04 10:02 | PN ---
Date/Time of Note Date/Time of Note DATE: 07/04/18 TIME: 10:01 Subjective Feeling better Objective Vital Signs Date Temp Pulse Resp B/P (MAP) Pulse Ox O2 O2 Flow FiO2 Time Delivery Rate 07/04/18 97.9 81 20 156/69 97 Room Air 07:30 (98) Intake and Output 07/03/18 07/03/18 07/04/18 1414:59 22:59 06:59 IntakeIntake Total 850 ml 400 ml OutputOutput Total 700 ml 650 ml 1150 ml BalanceBalance -700 ml 200 ml -750 ml Exam decreased edema min transfer Results/Medications Result Diagram: 07/02/18 1139 07/02/18 0616 Medications Current Medications Docusate Sodium (Colace) 100 mg BID PO Last administered on 07/04/18at 08:53; Admin Dose 100 MG; Start 07/01/18 at 21:00 Senna (Senokot) 1 tab HS PO Last administered on 07/02/18at 20:20; Admin Dose 1 TAB; Start 07/01/18 at 21:00 Magnesium Hydroxide (Milk Of Mag) 30 ml BID PRN PO CONSTIPATION; Start 07/01/18 at 13:00 Lactulose (Enulose) 20 gm DAILY PRN PO CONSTIPATION; Start 07/01/18 at 13:00 Bisacodyl (Dulcolax Supp) 10 mg DAILY PRN [place] CONSTIPATION; Start 07/01/18 at 13:00 Acetaminophen (Tylenol Tab) 650 mg Q4H PRN PO PAIN; Start 07/01/18 at 13:00 Miscellaneous Information (Pending [facility] Order For Wound Care) This patient wong... PRN PRN XX wound; Start 07/01/18 at 13:00 Bisacodyl (Dulcolax) 5 mg BID PRN PO CONSTIPATION; Start 07/01/18 at 13:30 Bupropion HCl (Wellbutrin Sr) 150 mg TID PO Last administered on 07/04/18at 08:53; Admin Dose 150 MG; Start 07/01/18 at 21:00 Clonidine (Catapres) 0.1 mg Q6H PRN PO HTN; Start 07/01/18 at 13:30 Fluticasone Propionate (Flonase 0.05% Nasal) 1 spray BID NASAL Last administered on 07/04/18at 08:57; Admin Dose 1 SPRAY; Start 07/01/18 at 21:00 Hydromorphone HCl (Dilaudid) 4 mg Q4H PRN IV SEVERE PAIN LEVEL 7-10 Last administered on 07/04/18 05:03; Admin Dose 4 MG; Start 07/01/18 at 13:30 Methadone HCl (Methadone) 50 mg BID PO Last administered on 07/04/18 08:52; Admin Dose 50 MG; Start 07/01/18 at 21:00 Ranitidine HCl (Zantac) 150 mg BID PO Last administered on 07/04/18 08:53; Admin Dose 150 MG; Start 07/01/18 at 21:00 Simethicone (Mylicon) 160 mg Q6H PRN PO ACID Reflux; Start 07/01/18 at 13:30 Heparin Sodium (Porcine) (Heparin (5000 Units/1ml)) 5,000 unit BID SC Last administered on 07/04/18 08:57; Admin Dose 5,000 UNIT; Start 07/02/18 at 21:00 Ceftriaxone Sodium 50 ml @ 100 mls/hr Q24H IVPB Last administered on 07/03/18 21:07; Admin Dose 100 MLS/HR; Start 07/03/18 at 18:30 Assessment/Plan Additional Assessment/Plan Rehab- 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 Continue current treatment plan Acute on chronic pain syndrome. Sickle cell anemia. Chronic kidney disease. Colitis. Mood disorder. FREDERIC SILVA MD Jul 04, 2018 10:02
--- NOTE | 2018-07-04 12:34 | PN ---
Date/Time of Note Date/Time of Note DATE: 07/04/18 TIME: 12:32 Assessment/Plan VTE Prophylaxis Risk score (from Nsg)>0 risk: 2 SCD applied (from Nsg): Yes Pharmacological prophylaxis: heparin Lines/Catheters IV Catheter Type (from Nrsg): Saline Lock Assessment/Plan Hospital Course SUBJECTIVE: No acute episodes. Pain is controlled. Participating with physical therapy. OBJECTIVE: Vital signs-see below PHYSICAL EXAM: Constitutional: Pleasant -Latvian male not in acute distress.. Psych: nl mood/affect, no complaints Head: atraumatic, normocephalic Eyes: nl conjunctiva, nl sclera ENMT: mucosa pink and moist, nl external ears & nose Neck: non-tender, supple Respiratory: clear to auscultation, normal air movement Cardiovascular: nl pulses, regular rate and rhythm Gastrointestinal: non-tender, soft, bowel sounds active in all 4 quadrants. Musculoskeletal/extremities: Right foot w/ dressing/boot, status post fixation surgery. Nl extremities to inspection, motor strength equal bilaterally, no focal deficit. Normal pulses,no cyanosis, no edema. Neurological: Alert oriented 3,nl speech, nl strength Skin: nl turgor ASSESSMENT/PLAN: 52-year-old male with sickle cell anemia, underwent right foot podiatric surgical intervention transferred for further physical therapy. 1. Bilateral ankle deformity s/p surgical intervention 06/27/18 - s/p right tibiocalcaneal fusion with autologous bone graft and multiplane external fixator. Will need to remain in fixator for the next 2 months per podiatry. - PT on board and appreciate recommendations. 2. ALCON on CKD- stable - Baseline Cr 1.6-1.8 -Stable 3. Chronic leukocytosis. -Monitor 4. Chronic pain - Patient is on methadone as outpatient which is managed by his Feather Duster Winder - On Dilaudid for breakthrough pain as well,Palliative care managing pain medications - Well-controlled. 5. Mood disorder - Continue Wellbutrin TID 6. GERD - H2 eze 7. Sickle cell anemia - Baseline hgb 6.7-7 -stable. DVT prophylaxis: Heparin PUD prophylaxis: H2 blockers CODE STATUS: Full code Diet: Regular. Patient was seen in collaboration with . Exam/Review of Systems Vital Signs Vitals Vital Signs Date Temp Pulse Resp B/P (MAP) Pulse Ox O2 O2 Flow FiO2 Time Delivery Rate 1215/18 97.9 81 20 156/69 97 Room Air 07:30 (98) Intake and Output 07/03/18 07/03/18 07/04/18 1515:00 23:00 07:00 IntakeIntake Total 850 ml 400 ml OutputOutput Total 650 ml 1150 ml BalanceBalance 200 ml -750 ml Medications Medications Current Medications Docusate Sodium (Colace) 100 mg BID PO Last administered on 07/04/18at 08:53; Admin Dose 100 MG; Start 07/01/18 at 21:00 Senna (Senokot) 1 tab HS PO Last administered on 07/02/18at 20:20; Admin Dose 1 TAB; Start 07/01/18 at 21:00 Magnesium Hydroxide (Milk Of Mag) 30 ml BID PRN PO CONSTIPATION; Start 07/01/18 at 13:00 Lactulose (Enulose) 20 gm DAILY PRN PO CONSTIPATION; Start 07/01/18 at 13:00 Bisacodyl (Dulcolax Supp) [address] CONSTIPATION; Start 07/01/18 at 13:00 Acetaminophen (Tylenol Tab) 650 mg Q4H PRN PO PAIN; Start 07/01/18 at 13:00 Miscellaneous Information (Pending [facility] Order For Wound Care) This patient wong... PRN PRN XX wound; Start 07/01/18 at 13:00 Bisacodyl (Dulcolax) 5 mg BID PRN PO CONSTIPATION; Start 07/01/18 at 13:30 Bupropion HCl (Wellbutrin Sr) 150 mg TID PO Last administered on 07/04/18at 08:53; Admin Dose 150 MG; Start 07/01/18 at 21:00 Clonidine (Catapres) 0.1 mg Q6H PRN PO HTN; Start 07/01/18 at 13:30 Fluticasone Propionate (Flonase 0.05% Nasal) 1 spray BID NASAL Last administered on 07/04/18at 08:57; Admin Dose 1 SPRAY; Start 07/01/18 at 21:00 Hydromorphone HCl (Dilaudid) 4 mg Q4H PRN IV SEVERE PAIN LEVEL 7-10 Last administered on 07/04/18at 10:12; Admin Dose 4 MG; Start 07/01/18 at 13:30 Methadone HCl (Methadone) 50 mg BID PO Last administered on 07/04/18at 08:52; Admin Dose 50 MG; Start 07/01/18 at 21:00 Ranitidine HCl (Zantac) 150 mg BID PO Last administered on 07/04/18at 08:53; Admin Dose 150 MG; Start 07/01/18 at 21:00 Simethicone (Mylicon) 160 mg Q6H PRN PO ACID Reflux; Start 07/01/18 at 13:30 Heparin Sodium (Porcine) (Heparin (5000 Units/1ml)) 5,000 unit BID SC Last administered on 07/04/18at 08:57; Admin Dose 5,000 UNIT; Start 07/02/18 at 21:00 Ceftriaxone Sodium 50 ml @ 100 mls/hr Q24H IVPB Last administered on 8at 21:07; Admin Dose 100 MLS/HR; Start 07/03/18 at 18:30 Results Result Diagram: 07/02/18 1139 07/02/18 0616 MORA BETH NP Jul 04, 2018 12:34
[2018-07-04 14:00] VITALS: BP 126/69; PULSE 93; RESP 18
--- NOTE | 2018-07-04 16:24 | NUR ---
Nursing Notes: patient stated that he wants to use the elevating pillow wedge at his home, at this time he wants his right foot to be elevated by using pillows. Dr. Metz and Dr. Decker will do the dressing on patient's right foot . VS stable and pain management rendered as per needed. Patient to continue his IV Antibiotic. Patient right toes are warmth to touched. Dressing dry and intact.
[2018-07-04] MEDS: CEFTRIAXONE 1 GM/50 ML (PMX) 50 ML IVPB SCH (17:48)
[2018-07-04 19:31] VITALS: BP 128/70; PULSE 100; RESP 18
[2018-07-04] MEDS: SENNA TAB PO SCH (21:00)
--- NOTE | 2018-07-04 23:10 | NUR ---
[facility] RN Weekly Summary Dates From:07/01/18 to 07/06/18 Patient Name: RERE NIXON MR#: [id number] Height: 6 ft 4 in Weight: 237 lbs 7.006 oz 107.700 kg Reason for Visit: POLYARTHRITIS DUE TO S/C Precautions:fall/dvt/ pressure ulcer Date: 07/04/18 Time: 2313 User: AMEE JAUREGUI Short-term Goals: 1.patient's pain level will be controlled 2.patient will be free from fall or injury 3.patient's skin integrity will be maintained 4.patient will be free of infection Patient's progress:fair Short-term goals not met and reason/barriers:still on going Bladder - level of function and accidents:5, no accidents Bowel - level of function and accidents:5, no accidents Skin:non intact,lt foot callous.LT ELBOW SCAB,LOWER ABDOMEN BRUISE Status;RT ANKLE FUSION WITH EXTERNAL FIXATOR Treatment:NONE Changes:NONE Pain:PRESENT Level:7-8/10 Location:RT ANKLE Management:METHADONE 50 MG PO BID,DILAUDID 4 MG IV Q 4 HRS PRN Changes:no Functional levels: Self Care:4 Transfers:3 Locomotion:0 Assistance requirements: Communication:7 Social Cognition:6 Safety awareness:YES,HIGH RISK FOR FALL Interdisciplinary interactions:PT/OT/SW/RN/MD Patient education:YES,GIVEN Q SHIFT AND PRN REGARDING MEDICATION AND FALL Discharge needs:ON GOING Comorbid conditions:ACUTE KIDNEY INJURY, SEVERE ANEMIA,LT LOWER ANKLE DEFORMITY,S/P ANKLE SURGERY WITH MULTIPLANE EXTERNAL FIXATOR, HX OF FLUID VOLUME OVERLOID Plan of Care continuation:YES, CONTINUE CURRENT PLAN OF CARE
[2018-07-05] MEDS: HYDROmorphONE 2 MG/ML SYG IV PRN ×5 (02:10→23:32)
[2018-07-05 02:11] VITALS: BP 135/63; PULSE 88; RESP 18
--- NOTE | 2018-07-05 05:41 | NUR ---
Pt awake at this time. No s/sx of distress. Dilaudid IV PRN administered per MD order. Verbalized some relief of pain after interventions. Due meds given. Needs attended to. Safety precautions in place. Frequent checks done. Encouraged to call for help when necessary. Will endorse accordingly.
[2018-07-05 07:00] VITALS: BP 143/71; PULSE 81; RESP 18
[2018-07-05] MEDS ORDERED: HEPARIN 5,000 UNIT/0.5 ML VIAL ONE ×2 (08:53→19:42)
[2018-07-05] MEDS: RANITIDINE 150 MG TAB PO SCH ×2 (09:42→20:44)
[2018-07-05] MEDS: FLUTICASONE 0.05% 16 GM NAS SPRAY NASAL SCH ×2 (09:42→20:44)
[2018-07-05] MEDS: METHADONE 10 MG TAB PO SCH ×2 (09:43→20:43)
[2018-07-05] MEDS: BUPROPION (SR) 150 MG TAB PO SCH ×3 (09:43→20:44)
[2018-07-05] MEDS: DOCUSATE SODIUM 100 MG CAP PO SCH ×2 (09:43→20:40)
[2018-07-05] MEDS: HEPARIN 5,000 UNIT/1 ML VIAL SC SCH ×2 (09:50→20:40)
--- NOTE | 2018-07-05 10:40 | PN ---
Date/Time of Note Date/Time of Note DATE: 07/05/18 TIME: 10:39 Assessment/Plan VTE Prophylaxis Risk score (from Nsg)>0 risk: 3 SCD applied (from Nsg): Yes Pharmacological prophylaxis: heparin Lines/Catheters IV Catheter Type (from Nrsg): Saline Lock Urinary Cath still in place: No Assessment/Plan Hospital Course SUBJECTIVE: No acute episodes. Pain is controlled. OBJECTIVE: Vital signs-see below PHYSICAL EXAM: Constitutional: Pleasant -Icelandic male not in acute distress.. Psych: nl mood/affect, no complaints Head: atraumatic, normocephalic Eyes: nl conjunctiva, nl sclera ENMT: mucosa pink and moist, nl external ears & nose Neck: non-tender, supple Respiratory: clear to auscultation, normal air movement Cardiovascular: nl pulses, regular rate and rhythm Gastrointestinal: non-tender, soft, bowel sounds active in all 4 quadrants. Musculoskeletal/extremities: Right foot w/ dressing/boot, status post fixation surgery. Nl extremities to inspection, motor strength equal bilaterally, no focal deficit. Normal pulses,no cyanosis, no edema. Neurological: Alert oriented 3,nl speech, nl strength Skin: nl turgor ASSESSMENT/PLAN: 52-year-old male with sickle cell anemia, underwent right foot podiatric surgical intervention transferred for further physical therapy. 1. Bilateral ankle deformity s/p surgical intervention 06/27/18 - s/p right tibiocalcaneal fusion with autologous bone graft and multiplane external fixator. Will need to remain in fixator for the next 2 months per podiatry. - PT on board and appreciate recommendations. 2. ALCON on CKD- stable - Baseline Cr 1.6-1.8 -Stable 3. Chronic leukocytosis. -Monitor 4. Chronic pain - Patient is on methadone as outpatient which is managed by his Hvac Designer - On Dilaudid for breakthrough pain as well,Palliative care managing pain medications - Well-controlled. 5. Mood disorder - Continue Wellbutrin TID 6. GERD - H2 eze 7. Sickle cell anemia - Baseline hgb 6.7-7 -stable. DVT prophylaxis: Heparin PUD prophylaxis: H2 blockers CODE STATUS: Full code Diet: Regular. Patient was seen in collaboration with . Exam/Review of Systems Vital Signs Vitals Vital Signs Date Temp Pulse Resp B/P (MAP) Pulse Ox O2 O2 Flow FiO2 Time Delivery Rate 07/05/18 97.7 81 18 143/71 100 Room Air 07:00 (95) Intake and Output 07/04/18 07/04/18 07/05/18 1414:59 22:59 06:59 IntakeIntake Total 1650 ml 400 ml OutputOutput Total 1510 ml 1700 ml BalanceBalance 140 ml -1300 ml Medications Medications Current Medications Docusate Sodium (Colace) 100 mg BID PO Last administered on 07/05/18at 09:43; Admin Dose 100 MG; Start 07/01/18 at 21:00 Senna (Senokot) 1 tab HS PO Last administered on 07/02/18at 20:20; Admin Dose 1 TAB; Start 07/01/18 at 21:00 Magnesium Hydroxide (Milk Of Mag) 30 ml BID PRN PO CONSTIPATION; Start 07/01/18 at 13:00 Lactulose (Enulose) 20 gm DAILY PRN PO CONSTIPATION; Start 07/01/18 at 13:00 Bisacodyl (Dulcolax Supp) 10 mg DAILY PRN [place] CONSTIPATION; Start 07/01/18 at 13:00 Acetaminophen (Tylenol Tab) 650 mg Q4H PRN PO PAIN; Start 07/01/18 at 13:00 Miscellaneous Information (Pending [facility] Order For Wound Care) This patient wong... PRN PRN XX wound; Start 07/01/18 at 13:00 Bisacodyl (Dulcolax) 5 mg BID PRN PO CONSTIPATION; Start 07/01/18 at 13:30 Bupropion HCl (Wellbutrin Sr) 150 mg TID PO Last administered on 07/05/18at 09:43; Admin Dose 150 MG; Start 07/01/18 at 21:00 Clonidine (Catapres) 0.1 mg Q6H PRN PO HTN; Start 07/01/18 at 13:30 Fluticasone Propionate (Flonase 0.05% Nasal) 1 spray BID NASAL Last administered on 07/05/18at 09:42; Admin Dose 1 SPRAY; Start 07/01/18 at 21:00 Hydromorphone HCl (Dilaudid) 4 mg Q4H PRN IV SEVERE PAIN LEVEL 7-10 Last administered on 07/05/18at 06:17; Admin Dose 4 MG; Start 07/01/18 at 13:30 Methadone HCl (Methadone) 50 mg BID PO Last administered on 07/05/18at 09:43; Admin Dose 50 MG; Start 07/01/18 at 21:00 Ranitidine HCl (Zantac) 150 mg BID PO Last administered on 07/05/18at 09:42; Admin Dose 150 MG; Start 07/01/18 at 21:00 Simethicone (Mylicon) 160 mg Q6H PRN PO ACID Reflux; Start 07/01/18 at 13:30 Heparin Sodium (Porcine) (Heparin (5000 Units/1ml)) 5,000 unit BID SC Last administered on 07/05/18at 09:50; Admin Dose 5,000 UNIT; Start 07/02/18 at 21:00 Ceftriaxone Sodium 50 ml @ 100 mls/hr Q24H IVPB Last administered on 07/04/18at 17:48; Admin Dose 100 MLS/HR; Start 07/03/18 at 18:30 Results Result Diagram: 07/02/18 1139 07/02/18 0616 MORA BETH NP Jul 05, 2018 10:39
[2018-07-05 14:00] VITALS: BP 136/65; PULSE 86; RESP 18
--- NOTE | 2018-07-05 15:30 | NUR ---
Gave Therapeutic Outing teaching to patient. Specifically informed patient that they can only visit premises within the hospital & not outside the building. Patient agrees.
--- NOTE | 2018-07-05 17:00 | NUR ---
Patient in bed browsing in his laptop. Alert, oriented x 4. No SOB. Complained of pain so given PRN pain medication. Relieved after 30 minutes. Offered educational materials & TV for recreational activities. No adverse reaction with IV ATB treatment. Kept clean & dry. All due meds given. Call light within reach. Bed alarm on & in low position. Kept comfortable.
[2018-07-05] MEDS: CEFTRIAXONE 1 GM/50 ML (PMX) 50 ML IVPB SCH (17:03)
[2018-07-05 20:00] VITALS: BP 135/73; PULSE 80; RESP 18
[2018-07-05] MEDS: SENNA TAB PO SCH (20:50)
[2018-07-06 02:29] VITALS: BP 131/70; PULSE 90; RESP 18
[2018-07-06] MEDS: HYDROmorphONE 2 MG/ML SYG IV PRN ×4 (03:31→18:55)
--- NOTE | 2018-07-06 05:34 | NUR ---
Pt awake alert, A/O x4. Has no distress.Medicated for right foot pain with dilaudid IV with good relief. No N/V. Voids without difficulty using urinal. Needs attended to. Safety precautions in place. Frequent checks done. Encouraged to call for help when necessary.
[2018-07-06 07:00] VITALS: BP 141/76; PULSE 79; RESP 18
--- NOTE | 2018-07-06 07:25 | NUR ---
PT NOTE: Pt wanted to talk to this therapist regarding schedule. Pt requesting all therapy to be in the morning. Educated on fewer rest breaks if pt gets all his therapy in the morning, pt agreeable.
--- NOTE | 2018-07-06 07:27 | NUR ---
Patient refused bed alarm on. Explained to patient the risk for not having bed alarm and the benefit for having bed alarm. Endorsed to oncoming [place]sh[place]. Brtitani Rosen.
[2018-07-06] MEDS ORDERED: HEPARIN 5,000 UNIT/0.5 ML VIAL ONE (07:37)
[2018-07-06] MEDS: METHADONE 10 MG TAB PO SCH ×3 (07:52→21:32)
[2018-07-06] MEDS: DOCUSATE SODIUM 100 MG CAP PO SCH ×2 (07:52→20:46)
[2018-07-06] MEDS: BUPROPION (SR) 150 MG TAB PO SCH ×4 (07:53→21:56)
[2018-07-06] MEDS: RANITIDINE 150 MG TAB PO SCH ×2 (07:53→20:46)
[2018-07-06] MEDS: HEPARIN 5,000 UNIT/1 ML VIAL SC SCH ×2 (08:28→20:54)
[2018-07-06] MEDS: FLUTICASONE 0.05% 16 GM NAS SPRAY NASAL SCH ×2 (09:35→20:47)
--- NOTE | 2018-07-06 09:39 | NUR ---
Nursing Notes: patient still refusing his bed alarm inspite of explanation of the importance of Bead Alarm, patient assurance that he will call at all times and aware of the safety precautions.
--- NOTE | 2018-07-06 10:56 | NUR ---
[facility] OT Weekly Summary Dates From: 07/01/18 to 07/06/18 Patient Name: RERE NIXON MR#: [id number] Height: 6 ft 4 in Weight: 237 lbs 7.006 oz 107.700 kg Reason for Visit: POLYARTHRITIS DUE TO S/C Precautions: fall risk, 2L of 02, Date: 07/06/18 Time: 1056 User: CLOVIS VIRK Short-term Goals: [facility] OT Short term Goal 1 Pt will be Indep w/ Grooming [facility] OT Short term Goal 2 Pt will be Mod Indep w/ Bathing [facility] OT Short term Goal 3 Pt will be indep/ mod indep w/ UB/LB dress [facility] OT Short term Goal 4 Pt will be Mod Indep w/ toileting [facility] OT Short term Goal 5 Pt will be Mod Indep w/ functional transfers Upon initial eval pt functional levels were the following: Grooming: SBA, Bathing: Did not occur, UE/LE Dress:Min A /Max A, Toileting: Max A, and Transfers: Min A. Pt current functional levels are the following: Grooming: SUP, Bathing: Did not occur, UE/LE Dress: Min A/Max A, Toileting: Max A, and Transfers: Min A w FWW. Pt making very conservative progress towards goals through ADL retraining, transfer training, pt edu, and ther act/ex for carry over to ADLs/act john. Upon D/C rec: S/C, commode, and FWW to increase safety and independence in ADLs.
--- NOTE | 2018-07-06 11:05 | PN ---
Date/Time of Note Date/Time of Note DATE: 07/06/18 TIME: 11:04 Assessment/Plan VTE Prophylaxis Risk score (from Nsg)>0 risk: 3 SCD applied (from Ns): Yes Pharmacological prophylaxis: heparin Lines/Catheters IV Catheter Type (from Nrsg): Saline Lock Urinary Cath still in place: No Assessment/Plan Hospital Course ASSESSMENT/PLAN: 52-year-old male with sickle cell anemia, underwent right foot podiatric surgical intervention transferred for further physical therapy. Labs today notable for Hgb 6. Will transfuse 1 unit PRBCs 1. Bilateral ankle deformity s/p surgical intervention 06/27/18 - s/p right tibiocalcaneal fusion with autologous bone graft and multiplane external fixator. Will need to remain in fixator for the next 2 months per podiatry. - PT on board and appreciate recommendations. 2. ALCON on CKD- stable - Baseline Cr 1.6-1.8 -Stable 3. Chronic leukocytosis. -Monitor 4. Chronic pain - Patient is on methadone as outpatient which is managed by his Magazine Publisher - On Dilaudid for breakthrough pain as well,Palliative care managing pain medications - Well-controlled. 5. Mood disorder - Continue Wellbutrin TID 6. GERD - H2 eze 7. Sickle cell anemia - Baseline hgb 6.7-7 -stable. DVT prophylaxis: Heparin PUD prophylaxis: H2 blockers CODE STATUS: Full code Diet: Regular. Patient was seen in collaboration with . Subjective 24 Hr Interval Summary Free Text/Dictation Doing well Working with PT Exam/Review of Systems Vital Signs Vitals Vital Signs Date Temp Pulse Resp B/P (MAP) Pulse Ox O2 O2 Flow FiO2 Time Delivery Rate 07/06/18 98.6 79 18 141/76 97 Room Air 07:00 (97) Intake and Output 07/05/18 07/05/18 07/06/18 1515:00 23:00 07:00 IntakeIntake Total 2450 ml 500 ml OutputOutput Total 2400 ml 580 ml BalanceBalance 50 ml -80 ml Medications Medications Current Medications Docusate Sodium (Colace) 100 mg BID PO Last administered on 07/06/18at 07:52; Admin Dose 100 MG; Start 07/01/18 at 21:00 Senna (Senokot) 1 tab HS PO Last administered on 07/02/18at 20:20; Admin Dose 1 TAB; Start 07/01/18 at 21:00 Magnesium Hydroxide (Milk Of Mag) 30 ml BID PRN PO CONSTIPATION; Start 07/01/18 at 13:00 Lactulose (Enulose) 20 gm DAILY PRN PO CONSTIPATION; Start 07/01/18 at 13:00 Bisacodyl (Dulcolax Supp) 10 mg DAILY PRN [place] CONSTIPATION; Start 07/01/18 at 13:00 Acetaminophen (Tylenol Tab) 650 mg Q4H PRN PO PAIN; Start 07/01/18 at 13:00 Miscellaneous Information (Pending [facility] Order For Wound Care) This patient wong... PRN PRN XX wound; Start 07/01/18 at 13:00 Bisacodyl (Dulcolax) 5 mg BID PRN PO CONSTIPATION; Start 07/01/18 at 13:30 Bupropion HCl (Wellbutrin Sr) 150 mg TID PO Last administered on 07/06/18at 07: 53; Admin Dose 150 MG; Start 07/01/18 at 21:00 Clonidine (Catapres) 0.1 mg Q6H PRN PO HTN; Start 07/01/18 at 13:30 Fluticasone Propionate (Flonase 0.05% Nasal) 1 spray BID NASAL Last administered on 07/06/18at 09:35; Admin Dose 60 SPRAY; Start 07/01/18 at 21:00 Hydromorphone HCl (Dilaudid) 4 mg Q4H PRN IV SEVERE PAIN LEVEL 7-10 Last administered on 07/06/18at 09:38; Admin Dose 4 MG; Start 07/01/18 at 13:30 Methadone HCl (Methadone) 50 mg BID PO Last administered on 07/06/18at 07:52; Admin Dose 50 MG; Start 07/01/18 at 21:00 Ranitidine HCl (Zantac) 150 mg BID PO Last administered on 07/06/18at 07:53; Admin Dose 150 MG; Start 07/01/18 at 21:00 Simethicone (Mylicon) 160 mg Q6H PRN PO ACID Reflux; Start 07/01/18 at 13:30 Heparin Sodium (Porcine) (Heparin (5000 Units/1ml)) 5,000 unit BID SC Last administered on 07/06/18at 08:28; Admin Dose 5,000 UNIT; Start 07/02/18 at 21:00 Ceftriaxone Sodium 50 ml @ 100 mls/hr Q24H IVPB Last administered on 07/05/18at 17:03; Admin Dose 100 MLS/HR; Start 07/03/18 at 18:30 Results Result Diagram: 07/06/18 1042 07/02/18 0616 Results 24 hrs Laboratory Tests Test 07/06/18 10:42 White Blood Count 11.6 H Red Blood Count 2.44 L Hemoglobin 6.8 *L Hematocrit 21.2 L Mean Corpuscular Volume 86.9 Mean Corpuscular Hemoglobin 27.9 L Mean Corpuscular Hemoglobin Concent 32.1 Red Cell Distribution Width 21.9 H Platelet Count 405 Mean Platelet Volume 10.0 Immature Granulocytes % 0.600 H Neutrophils % Lymphocytes % Monocytes % Eosinophils % Basophils % Nucleated Red Blood Cells % 2.1 H Immature Granulocytes # 0.070 H Neutrophils # Lymphocytes # Monocytes # Eosinophils # Basophils # Nucleated Red Blood Cells # MERRILL LOPEZ MD Jul 06, 2018 11:05
--- NOTE | 2018-07-06 11:14 | NUR ---
Nursing Notes: RN called Dr. Metz and asked for clearance for out on bed ( to sit on wheelchair ) during therapy period. Dr. Metz approved that patient can be transfer to wheelchair during therapy session. Dr. Williamson discussed with patient the tapering dose of Dilaudid IV .
--- NOTE | 2018-07-06 12:03 | PN ---
Date/Time of Note Date/Time of Note DATE: 07/06/18 TIME: 12:03 Objective Vital Signs Date Temp Pulse Resp B/P (MAP) Pulse Ox O2 O2 Flow FiO2 Time Delivery Rate 07/06/18 98.6 79 18 141/76 97 Room Air 07:00 (97) Intake and Output 07/05/18 07/05/18 07/06/18 1515:00 23:00 07:00 IntakeIntake Total 2450 ml 500 ml OutputOutput Total 2400 ml 580 ml BalanceBalance 50 ml -80 ml Exam INTERDISCIPLINARY TEAM CONFERENCE BOWEL- Cont BLADDER-Cont SKIN- decreased drainage, edema, ex-fix site clean OT- DRESSING-s/min BATHING-sba/min TOILETING-sba PT- BED MOBILITY-sba TRANSFERS-sba WHEELCHAIR -SBA A/P- Interdisciplinary team conference held today. Please see interdisciplinary sheet. Working toward d.c. on 07/10 with post discharge follow up of physical therapy, occupational therapy. Results/Medications Result Diagram: 07/06/18 1042 07/06/18 1042 Results 24 hrs Laboratory Tests Test 07/06/18 10:42 White Blood Count 11.6 H Red Blood Count 2.44 L Hemoglobin 6.8 *L Hematocrit 21.2 L Mean Corpuscular Volume 86.9 Mean Corpuscular Hemoglobin 27.9 L Mean Corpuscular Hemoglobin Concent 32.1 Red Cell Distribution Width 21.9 H Platelet Count 405 Mean Platelet Volume 10.0 Immature Granulocytes % 0.600 H Neutrophils % Lymphocytes % Monocytes % Eosinophils % Basophils % Nucleated Red Blood Cells % 2.1 H Immature Granulocytes # 0.070 H Neutrophils # Lymphocytes # Monocytes # Eosinophils # Basophils # Nucleated Red Blood Cells # Sodium Level 139 Potassium Level 4.8 Chloride Level 106 Carbon Dioxide Level 24 Anion Gap 9 Blood Urea Nitrogen 33 H Creatinine 1.62 H Est Glomerular Filtrat Rate mL/min 54 L Glucose Level 101 Calcium Level 8.7 Medications Current Medications Docusate Sodium (Colace) 100 mg BID PO Last administered on 07/06/18at 07:52; Admin Dose 100 MG; Start 07/01/18 at 21:00 Senna (Senokot) 1 tab HS PO Last administered on 07/02/18at 20:20; Admin Dose 1 TAB; Start 07/01/18 at 21:00 Magnesium Hydroxide (Milk Of Mag) 30 ml BID PRN PO CONSTIPATION; Start 07/01/18 at 13:00 Lactulose (Enulose) 20 gm DAILY PRN PO CONSTIPATION; Start 07/01/18 at 13:00 Bisacodyl (Dulcolax Supp) 10 mg DAILY PRN [place] CONSTIPATION; Start 07/01/18 at 13:00 Acetaminophen (Tylenol Tab) 650 mg Q4H PRN PO PAIN; Start 07/01/18 at 13:00 [facility] This patient wong... PRN PRN XX wound; Start 07/01/18 at 13:00 Bisacodyl (Dulcolax) 5 mg BID PRN PO CONSTIPATION; Start 07/01/18 at 13:30 Bupropion HCl (Wellbutrin Sr) 150 mg TID PO Last administered on 07/06/18at 07:53; Admin Dose 150 MG; Start 07/01/18 at 21:00 Clonidine (Catapres) 0.1 mg Q6H PRN PO HTN; Start 07/01/18 at 13:30 Fluticasone Propionate (Flonase 0.05% Nasal) 1 spray BID NASAL Last administered on 07/06/18at 09:35; Admin Dose 60 SPRAY; Start 07/01/18 at 21:00 Methadone HCl (Methadone) 50 mg BID PO Last administered on 07/06/18at 07:52; Admin Dose 50 MG; Start 07/01/18 at 21:00 Ranitidine HCl (Zantac) 150 mg BID PO Last administered on 07/06/18at 07:53; Admin Dose 150 MG; Start 07/01/18 at 21:00 Simethicone (Mylicon) 160 mg Q6H PRN PO ACID Reflux; Start 07/01/18 at 13:30 Heparin Sodium (Porcine) (Heparin (5000 Units/1ml)) 5,000 unit BID SC Last administered on 07/06/18at 08:28; Admin Dose 5,000 UNIT; Start 07/02/18 at 21:00 Ceftriaxone Sodium 50 ml @ 100 mls/hr Q24H IVPB Last administered on 07/05/18at 17:03; Admin Dose 100 MLS/HR; Start 07/03/18 at 18:30 Hydromorphone HCl (Dilaudid) 3 mg Q4H PRN IV SEVERE PAIN LEVEL 7-10; Start 07/06/18 at 13:30 FREDERIC SILVA MD Jul 06, 2018 12:03
[2018-07-06] MEDS: CEFTRIAXONE 1 GM/50 ML (PMX) 50 ML IVPB SCH (18:54)
--- NOTE | 2018-07-06 19:00 | NUR ---
Nursing notes: patient Hgb. 6.8 ( on critical value ) Dr. Byrne ordered BT Dr. Byrne seen all lab test results today , Dr Williamson aware of the BT order RN discussed with patient for BT , patient stated he does not want the transfusion and he wants his Oncology to explain to him. RN notified Dr. Byrne, transfusion discontinue and Bethany RN notified the Blood [facility]
[2018-07-06 20:00] VITALS: BP 125/71; PULSE 84; RESP 18
[2018-07-06] MEDS: SENNA TAB PO SCH (21:00)
[2018-07-07] MEDS: HYDROmorphONE 2 MG/ML SYG IV PRN ×4 (01:54→17:38)
[2018-07-07 02:08] VITALS: BP 125/67; PULSE 77; RESP 18
[2018-07-07] MEDS ORDERED: OXYMETAZOLINE 0.05% 15 ML NAS SPRAY NASAL PRN (03:00)
[2018-07-07] MEDS ORDERED: FLUTICASONE 0.05% 16 GM NAS SPRAY NASAL SCH (03:00)
--- NOTE | 2018-07-07 05:36 | NUR ---
PATIENT SLEPT ON AND OFF. MEDICATED WITH DILAUDID 3 MG IV FOR RT ANKLE PAIN WITH RELIEF. RECREATIONAL ACTIVITIES PROVIDED TO PATIENT;TV, CALL LIGHT WITHIN REACH .C/O NASAL CONGESTION. DR. CHILDRESS NOTIFIED. NEW ORDER RECEIVED.
[2018-07-07 07:30] VITALS: BP 162/84; PULSE 82; RESP 18
[2018-07-07 08:15] VITALS: BP 139/77; PULSE 88; RESP 18
--- NOTE | 2018-07-07 08:41 | QN ---
Documentation Comment Pt is continuing to recover from surgery. Yesterday Hgb was 6.8, which is in his usual range of 6.7 to 7.0. He is comfortable and does not need transfusion. When discharged, he will f/u with his usual physician extender, who has cared for him for about two decades. I will sign off but if we can be of help, either Dr. Rosenthal or I will be available. ( ) MELBA CHÁVEZ MD Jul 07, 2018 08:41
[2018-07-07] MEDS: RANITIDINE 150 MG TAB PO SCH ×2 (10:05→20:46)
[2018-07-07] MEDS: DOCUSATE SODIUM 100 MG CAP PO SCH ×2 (10:05→20:46)
[2018-07-07] MEDS: BUPROPION (SR) 150 MG TAB PO SCH ×3 (10:05→20:47)
[2018-07-07] MEDS: METHADONE 10 MG TAB PO SCH ×2 (10:07→20:46)
[2018-07-07] MEDS: HEPARIN 5,000 UNIT/1 ML VIAL SC SCH ×2 (10:18→20:54)
[2018-07-07] MEDS: FLUTICASONE 0.05% 16 GM NAS SPRAY NASAL SCH ×2 (10:19→20:46)
--- NOTE | 2018-07-07 11:50 | PN ---
Date/Time of Note Date/Time of Note DATE: 07/07/18 TIME: 11:48 Subjective Comfortable Objective Vital Signs Date Temp Pulse Resp B/P (MAP) Pulse Ox O2 O2 Flow FiO2 Time Delivery Rate 07/07/18 88 18 139/77 98 Room Air 08:15 (97) 07/07/18 97.8 07:30 Intake and Output 07/06/18 07/06/18 07/07/18 1414:59 22:59 06:59 IntakeIntake Total 2000 ml 400 ml OutputOutput Total 1400 ml 1550 ml BalanceBalance 600 ml -1150 ml Exam decreased edema sba transfer sba wheelchair mobility Results/Medications Result Diagram: 07/06/18 1042 07/06/18 1042 Medications Current Medications Docusate Sodium (Colace) 100 mg BID PO Last administered on 07/07/18at 10:05; Admin Dose 100 MG; Start 07/01/18 at 21:00 Senna (Senokot) 1 tab HS PO Last administered on 07/02/18at 20:20; Admin Dose 1 TAB; Start 07/01/18 at 21:00 Magnesium Hydroxide (Milk Of Mag) 30 ml BID PRN PO CONSTIPATION; Start 07/01/18 at 13:00 Lactulose (Enulose) 20 gm DAILY PRN PO CONSTIPATION; Start 07/01/18 at 13:00 Bisacodyl (Dulcolax Supp) 10 mg DAILY PRN [place] CONSTIPATION; Start 07/01/18 at 13:00 Acetaminophen (Tylenol Tab) 650 mg Q4H PRN PO PAIN; Start 07/01/18 at 13:00 Miscellaneous Information (Pending [facility] Order For Wound Care) This patient wong... PRN PRN XX wound; Start 07/01/18 at 13:00 Bisacodyl (Dulcolax) 5 mg BID PRN PO CONSTIPATION; Start 07/01/18 at 13:30 Bupropion HCl (Wellbutrin Sr) 150 mg TID PO Last administered on 07/07/18at 10:05; Admin Dose 150 MG; Start 07/01/18 at 21:00 Clonidine (Catapres) 0.1 mg Q6H PRN PO HTN; Start 07/01/18 at 13:30 Fluticasone Propionate (Flonase 0.05% Nasal) 1 spray BID NASAL Last administered on 07/07/18 10:19; Admin Dose 1 SPRAY; Start 07/01/18 at 21:00 Methadone HCl (Methadone) 50 mg BID PO Last administered on 07/07/18at 10:07; Admin Dose 50 MG; Start 07/01/18 at 21:00 Ranitidine HCl (Zantac) 150 mg BID PO Last administered on 07/07/18at 10:05; Admin Dose 150 MG; Start 07/01/18 at 21:00 Simethicone (Mylicon) 160 mg Q6H PRN PO ACID Reflux; Start 07/01/18 at 13:30 Heparin Sodium (Porcine) (Heparin (5000 Units/1ml)) 5,000 unit BID SC Last administered on 07/07/18at 10:18; Admin Dose 5,000 UNIT; Start 07/02/18 at 21:00 Ceftriaxone Sodium 50 ml @ 100 mls/hr Q24H IVPB Last administered on 07/06/18at 18:54; Admin Dose 100 MLS/HR; Start 07/03/18 at 18:30 Hydromorphone HCl (Dilaudid) 3 mg Q4H PRN IV SEVERE PAIN LEVEL 7-10 Last administered on 07/07/18at 07:35; Admin Dose 3 MG; Start 07/06/18 at 13:30 Oxymetazoline HCl (Afrin [place]) 1 spray Q4H PRN NASAL NASAL CONGESTION; Start 07/07/18 at 03:00; Stop 07/08/18 at 02:59 Assessment/Plan Additional Assessment/Plan Rehab- Polyarthritis/joint derangement due to sickle cell anemia, status post right tibial calcaneal fusion with external fixator. Continue current treatment plan, working towards home Friday Acute on chronic pain syndrome-tapering IV pain meds Sickle cell anemia. Chronic kidney disease. Colitis. Mood disorder. FREDERIC SILVA MD Jul 07, 2018 11:50
--- NOTE | 2018-07-07 11:55 | PN ---
Date/Time of Note Date/Time of Note DATE: 07/07/18 TIME: 11:55 Assessment/Plan VTE Prophylaxis Risk score (from Nsg)>0 risk: 3 SCD applied (from Nsg): Yes Pharmacological prophylaxis: heparin Lines/Catheters IV Catheter Type (from Nrsg): Saline Lock Urinary Cath still in place: No Assessment/Plan Hospital Course SUBJECTIVE: No acute episodes. Pain is controlled. OBJECTIVE: Vital signs-see below PHYSICAL EXAM: Constitutional: Pleasant -Guyanese male not in acute distress.. Psych: nl mood/affect, no complaints Head: atraumatic, normocephalic Eyes: nl conjunctiva, nl sclera ENMT: mucosa pink and moist, nl external ears & nose Neck: non-tender, supple Respiratory: clear to auscultation, normal air movement Cardiovascular: nl pulses, regular rate and rhythm Gastrointestinal: non-tender, soft, bowel sounds active in all 4 quadrants. Musculoskeletal/extremities: Right foot w/ dressing/boot, status post fixation surgery. Nl extremities to inspection, motor strength equal bilaterally, no focal deficit. Normal pulses,no cyanosis, no edema. Neurological: Alert oriented 3,nl speech, nl strength Skin: nl turgor ASSESSMENT/PLAN: 52-year-old male with sickle cell anemia, underwent right foot podiatric surgical intervention transferred for further physical therapy. 1. Bilateral ankle deformity s/p surgical intervention 06/27/18 - s/p right tibiocalcaneal fusion with autologous bone graft and multiplane external fixator. Will need to remain in fixator for the next 2 months per podiatry. - PT on board and appreciate recommendations. 2. ALCON on CKD- stable - Baseline Cr 1.6-1.8 -Stable 3. Chronic leukocytosis. -Monitor 4. Chronic pain - Patient is on methadone as outpatient which is managed by his Fish Hatchery Worker - On Dilaudid for breakthrough pain as well,Palliative care managing pain medications - Well-controlled. 5. Mood disorder - Continue Wellbutrin TID 6. GERD - H2 eze 7. Sickle cell anemia -Baseline hgb 6.7-7 -stable. DVT prophylaxis: Heparin PUD prophylaxis: H2 blockers CODE STATUS: Full code Diet: Regular. Patient was seen in collaboration with . Exam/Review of Systems Vital Signs Vitals Vital Signs Date Temp Pulse Resp B/P (MAP) Pulse Ox O2 O2 Flow FiO2 Time Delivery Rate 07/07/18 88 18 139/77 98 Room Air 08:15 (97) 07/07/18 97.8 07:30 Intake and Output 07/06/18 07/06/18 07/07/18 1414:59 22:59 06:59 IntakeIntake Total 2000 ml 400 ml OutputOutput Total 1400 ml 1550 ml BalanceBalance 600 ml -1150 ml Medications Medications Current Medications Docusate Sodium (Colace) 100 mg BID PO Last administered on 07/07/18at 10:05; Admin Dose 100 MG; Start 07/01/18 at 21:00 Senna (Senokot) 1 tab HS PO Last administered on 07/02/18at 20:20; Admin Dose 1 TAB; Start 07/01/18 at 21:00 Magnesium Hydroxide (Milk Of Mag) 30 ml BID PRN PO CONSTIPATION; Start 07/01/18 at 13:00 Lactulose (Enulose) 20 gm DAILY PRN PO CONSTIPATION; Start 07/01/18 at 13:00 Bisacodyl (Dulcolax Supp) 10 mg DAILY PRN [place] CONSTIPATION; Start 07/01/18 at 13:00 Acetaminophen (Tylenol Tab) 650 mg Q4H PRN PO PAIN; Start 07/01/18 at 13:00 Miscellaneous Information (Pending [facility] Order For Wound Care) This patient wong... PRN PRN XX wound; Start 07/01/18 at 13:00 Bisacodyl (Dulcolax) 5 mg BID PRN PO CONSTIPATION; Start 07/01/18 at 13:30 Bupropion HCl (Wellbutrin Sr) 150 mg TID PO Last administered on 07/07/18at 10:05; Admin Dose 150 MG; Start 07/01/18 at 21:00 Clonidine (Catapres) 0.1 mg Q6H PRN PO HTN; Start 07/01/18 at 13:30 Fluticasone Propionate (Flonase 0.05% Nasal) 1 spray BID NASAL Last administered on 07/07/18at 10:19; Admin Dose 1 SPRAY; Start 07/01/18 at 21:00 Methadone HCl (Methadone) 50 mg BID PO Last administered on 07/07/18at 10:07; Admin Dose 50 MG; Start 07/01/18 at 21:00 Ranitidine HCl (Zantac) 150 mg BID PO Last administered on 07/07/18at 10:05; Admin Dose 150 MG; Start 07/01/18 at 21:00 Simethicone (Mylicon) 160 mg Q6H PRN PO ACID Reflux; Start 07/01/18 at 13:30 Heparin Sodium (Porcine) (Heparin (5000 Units/1ml)) 5,000 unit BID SC Last administered on 07/07/18at 10:18; Admin Dose 5,000 UNIT; Start 07/02/18 at 21:00 Ceftriaxone Sodium 50 ml @ 100 mls/hr Q24H IVPB Last administered on 07/06/18at 18:54; Admin Dose 100 MLS/HR; Start 07/03/18 at 18:30 Hydromorphone HCl (Dilaudid) 3 mg Q4H PRN IV SEVERE PAIN LEVEL 7-10 Last administered on 07/07/18at 07:35; Admin Dose 3 MG; Start 07/06/18 at 13:30 Oxymetazoline HCl (Afrin [place]) 1 spray Q4H PRN NASAL NASAL CONGESTION; Start 07/07/18 at 03:00; Stop 07/08/18 at 02:59 Results Result Diagram: 07/06/18 1042 07/06/18 1042 MORA BETH NP Jul 07, 2018 11:55
[2018-07-07 14:00] VITALS: BP 139/78; PULSE 89; RESP 20
--- NOTE | 2018-07-07 14:57 | NUR ---
Nursing Notes: Staff from [facility] called this morning and verified if patient does not need anymore the Blood Products for transfusion, RN informed her that the BT order was cancelled since patient refused.
--- NOTE | 2018-07-07 15:47 | NUR ---
Nursing Notes: patient seen by Dr. Decker and Dr. Metz , dressing done and informed that patient pain IV Medication was tapered since yesterday. No new orders was provided.
[2018-07-07] MEDS: CEFTRIAXONE 1 GM/50 ML (PMX) 50 ML IVPB SCH (17:31)
--- NOTE | 2018-07-07 19:16 | PN ---
Date/Time of Note Date/Time of Note DATE: 07/07/18 TIME: 19:15 Assessment/Plan VTE Prophylaxis Risk score (from Nsg)>0 risk: 4 Pharmacological prophylaxis: heparin Lines/Catheters IV Catheter Type (from Nrsg): Saline Lock Urinary Cath still in place: No Assessment/Plan Hospital Course 52 y/o M patient with hx of sickle cell anemia and bilateral adult acquired club foot deformity. Patient had hindfoot arthrodesis with application of ilizarov external fixator on 06/27/18. Patient is at the acute rehab floor for further physical therapy and monitoring. Patient noted clear draining to this dressings. Denies f/c/n/v, no chest pain or shortness of breath. Denies any damage or trauma to the surgery site. Assessment/Plan 1) Adult acquired club foot deformity b/l s/p RLE hindfoot fusion and applicati on of ex-fix 2) Sickle cell anemia 3) Edema RLE 4) Chronic pain 5) Leukocytosis - down trending Plan: Recommend patient to be non-weight right lower extremity. Only use left lower extremity for transfers. Continue with pain control. Emphasized nursing staff to elevate right lower extremity with pillows and or soft wedge elevator. No hardware failure. Safety precautions reinforced. Continue with DVT prophylaxis. IV abx for prophylaxis stop date 07/10/18. Medical decisions, treatment, and plan coordinated with Dr. Crook. Subjective 24 Hr Interval Summary Free Text/Dictation Patient reporting did well with elevation and decrease in swelling. However when getting up and getting into wheelchair swelling increased and noted increased pain. Exam/Review of Systems Vital Signs Vitals Vital Signs Date Temp Pulse Resp B/P (MAP) Pulse Ox O2 O2 Flow FiO2 Time Delivery Rate 07/07/18 98.6 89 20 139/78 95 Room Air 14:00 (98) Intake and Output 07/06/18 07/06/18 07/07/18 1515:00 23:00 07:00 IntakeIntake Total 2000 ml 400 ml OutputOutput Total 1400 ml 1550 ml BalanceBalance 600 ml -1150 ml Exam Ex-fix in rectus alignment. No sign of wound dehiscence to the incision site. Non-pitting edema to the right lower extremity. Mild pain on palpation to right lower extremity surgery site. There is no loosening of the ex-fix appreciated. Capillary refill time to digits less than 3 seconds. MARCELINA COATES DPM Jul 07, 2018 19:16
[2018-07-07 20:00] VITALS: BP 157/74; PULSE 78; RESP 18
[2018-07-07] MEDS: SENNA TAB PO SCH (20:54)
[2018-07-08] MEDS: HYDROmorphONE 2 MG/ML SYG IV PRN ×6 (01:47→23:30)
[2018-07-08 01:53] VITALS: BP 139/67; PULSE 69; RESP 18
--- NOTE | 2018-07-08 06:30 | NUR ---
Medicated for Rt foot pain prn with good effect. Voiding well using urinal. Needs attended. Kept comfortable. Call light within reached. No acute distress noted.
--- NOTE | 2018-07-08 06:55 | NUR ---
Ashlyn szymanski was made aware again that pt has been refusing bed alarm inspite explaining benefits against falls.
[2018-07-08 07:30] VITALS: BP 154/82; PULSE 82; RESP 18
[2018-07-08] MEDS: BUPROPION (SR) 150 MG TAB PO SCH ×3 (08:42→20:27)
[2018-07-08] MEDS: METHADONE 10 MG TAB PO SCH ×2 (08:43→20:27)
[2018-07-08 09:30] VITALS: BP 135/65; PULSE 78; RESP 18
[2018-07-08] MEDS: FLUTICASONE 0.05% 16 GM NAS SPRAY NASAL SCH ×2 (09:37→20:29)
[2018-07-08] MEDS: HEPARIN 5,000 UNIT/1 ML VIAL SC SCH ×2 (09:44→20:37)
[2018-07-08] MEDS: DOCUSATE SODIUM 100 MG CAP PO SCH ×2 (09:45→20:27)
[2018-07-08] MEDS: RANITIDINE 150 MG TAB PO SCH ×2 (09:51→20:26)
--- NOTE | 2018-07-08 11:57 | NUR ---
Spoke to Dr. Metz, he stated that patient can get oob to wheelchair as long as he puts no weight down, and when he is in chair, the leg right leg must be elevated at all times. Notified staff and patient.
--- NOTE | 2018-07-08 12:25 | PN ---
Date/Time of Note Date/Time of Note DATE: 07/08/18 TIME: 12:23 Subjective More pain given the increased activities Objective Vital Signs Date Temp Pulse Resp B/P (MAP) Pulse Ox O2 O2 Flow FiO2 Time Delivery Rate 07/08/18 78 18 135/65 Room Air 09:30 (88) 07/08/18 98.6 98 07:30 Intake and Output 07/07/18 07/07/18 07/08/18 1515:00 23:00 07:00 IntakeIntake Total 1450 ml 350 ml OutputOutput Total 1260 ml 1850 ml BalanceBalance 190 ml -1500 ml Exam improved edema sba wheelchair mobility Results/Medications Result Diagram: 07/06/18 1042 07/06/18 1042 Medications Current Medications Docusate Sodium (Colace) 100 mg BID PO Last administered on 07/08/18at 09:45; Admin Dose 100 MG; Start 07/01/18 at 21:00 Senna (Senokot) 1 tab HS PO Last administered on 07/02/18at 20:20; Admin Dose 1 TAB; Start 07/01/18 at 21:00 Magnesium Hydroxide (Milk Of Mag) 30 ml BID PRN PO CONSTIPATION; Start 07/01/18 at 13:00 Lactulose (Enulose) 20 gm DAILY PRN PO CONSTIPATION; Start 07/01/18 at 13:00 Bisacodyl (Dulcolax Supp) 10 mg DAILY PRN [place] CONSTIPATION; Start 07/01/18 at 13:00 Acetaminophen (Tylenol Tab) 650 mg Q4H PRN PO PAIN; Start 07/01/18 at 13:00 Miscellaneous Information ([facility]) This patient wong... PRN PRN XX wound; Start 07/01/18 at 13:00 Bisacodyl (Dulcolax) 5 mg BID PRN PO CONSTIPATION; Start 07/01/18 at 13:30 Bupropion HCl (Wellbutrin Sr) 150 mg TID PO Last administered on 07/08/18at 08:42; Admin Dose 150 MG; Start 07/01/18 at 21:00 Clonidine (Catapres) 0.1 mg Q6H PRN PO HTN; Start 07/01/18 at 13:30 Fluticasone Propionate (Flonase 0.05% Nasal) 1 spray BID NASAL Last administered on 07/08/18at 09:37; Admin Dose 1 SPRAY; Start 07/01/18 at 21:00 Methadone HCl (Methadone) 50 mg BID PO Last administered on 07/08/18at 08:43; Admin Dose 50 MG; Start 07/01/18 at 21:00 Ranitidine HCl (Zantac) 150 mg BID PO Last administered on 07/08/18at 09:51; Admin Dose 150 MG; Start 07/01/18 at 21:00 Simethicone (Mylicon) 160 mg Q6H PRN PO ACID Reflux; Start 07/01/18 at 13:30 Heparin Sodium (Porcine) (Heparin (5000 Units/1ml)) 5,000 unit BID SC Last administered on 07/08/18at 09:44; Admin Dose 5,000 UNIT; Start 07/02/18 at 21:00 Ceftriaxone Sodium 50 ml @ 100 mls/hr Q24H IVPB Last administered on 07/07/18at 17:31; Admin Dose 100 MLS/HR; Start 07/03/18 at 18:30; Stop 07/09/18 at 18:59 Hydromorphone HCl (Dilaudid) 2 mg Q4H PRN PO SEVERE PAIN LEVEL 7-10; Start 07/08/18 at 12:00 Hydromorphone HCl (Dilaudid) 4 mg Q4H PRN IV SEVERE PAIN LEVEL 7-10; Start 07/08/18 at 12:10 Assessment/Plan Additional Assessment/Plan Rehab- Polyarthritis/joint derangement due to sickle cell anemia, status post right tibial calcaneal fusion with external fixator. Continue current treatment plan, will work towards dc 07/13 Acute on chronic pain syndrome-meds adjusted, oral dilaudid added Sickle cell anemia. Chronic kidney disease. Colitis. Mood disorder. FREDERIC SILVA MD Jul 08, 2018 12:25
[2018-07-08] MEDS ORDERED: HYDROmorphONE 2 MG/ML SYG IV PRN (13:30)
--- NOTE | 2018-07-08 13:41 | PN ---
Date/Time of Note Date/Time of Note DATE: 07/08/18 TIME: 13:40 Assessment/Plan VTE Prophylaxis Risk score (from Nsg)>0 risk: 5 SCD applied (from Nsg): Yes Pharmacological prophylaxis: heparin Lines/Catheters IV Catheter Type (from Nrsg): Saline Lock Urinary Cath still in place: No Assessment/Plan Hospital Course SUBJECTIVE: No acute episodes. Pain is controlled. OBJECTIVE: Vital signs-see below PHYSICAL EXAM: Constitutional: Pleasant -Bangladeshi male not in acute distress.. Psych: nl mood/affect, no complaints Head: atraumatic, normocephalic Eyes: nl conjunctiva, nl sclera ENMT: mucosa pink and moist, nl external ears & nose Neck: non-tender, supple Respiratory: clear to auscultation, normal air movement Cardiovascular: nl pulses, regular rate and rhythm Gastrointestinal: non-tender, soft, bowel sounds active in all 4 quadrants. Musculoskeletal/extremities: Right foot w/ dressing/boot, status post fixation surgery. Nl extremities to inspection, motor strength equal bilaterally, no focal deficit. Normal pulses,no cyanosis, no edema. Neurological: Alert oriented 3,nl speech, nl strength Skin: nl turgor ASSESSMENT/PLAN: 52-year-old male with sickle cell anemia, underwent right foot podiatric surgical intervention transferred for further physical therapy. 1. Bilateral ankle deformity s/p surgical intervention 06/27/18 - s/p right tibiocalcaneal fusion with autologous bone graft and multiplane external fixator. Will need to remain in fixator for the next 2 months per podiatry. - PT on board and appreciate recommendations. 2. ALCON on CKD- stable - Baseline Cr 1.6-1.8 -Stable 3. Chronic leukocytosis. -Monitor 4. Chronic pain - Patient is on methadone as outpatient which is managed by his College Specialist - On Dilaudid for breakthrough pain as well,Palliative care managing pain medic ations - Well-controlled. 5. Mood disorder - Continue Wellbutrin TID 6. GERD - H2 eze 7. Sickle cell anemia -Baseline hgb 6.7-7 -stable. DVT prophylaxis: Heparin PUD prophylaxis: H2 blockers CODE STATUS: Full code Diet: Regular. Patient was seen in collaboration with . Exam/Review of Systems Vital Signs Vitals Vital Signs Date Temp Pulse Resp B/P (MAP) Pulse Ox O2 O2 Flow FiO2 Time Delivery Rate 07/08/18 78 18 135/65 Room Air 09:30 (88) 07/08/18 98.6 98 07:30 Intake and Output 07/07/18 07/07/18 07/08/18 1515:00 23:00 07:00 IntakeIntake Total 1450 ml 350 ml OutputOutput Total 1260 ml 1850 ml BalanceBalance 190 ml -1500 ml MORA BETH NP Jul 08, 2018 13:41
[2018-07-08 14:00] VITALS: BP 128/74; PULSE 89; RESP 18
[2018-07-08] MEDS: CEFTRIAXONE 1 GM/50 ML (PMX) 50 ML IVPB SCH (17:47)
--- NOTE | 2018-07-08 19:00 | NUR ---
Nursing Notes: patient needs are all provided, VS stable, pain medicated as needed, Dr. Williamson adjusted IV pain medication, Patient refused the right HL to be removed even there's new HL on left hand. Continue IV antibiotics, dressing to be done by Surgeon ( Podiatries ) only . KAMALA Rosen clarified with the Surgeon about wheelchair out on bed, patient was instructed and therapies aware.
[2018-07-08 19:17] VITALS: BP 135/75; RESP 18
[2018-07-08] MEDS: SENNA TAB PO SCH (20:28)
--- NOTE | 2018-07-09 00:02 | CONS ---
DATE OF ADMISSION: 07/01/2018 DATE OF CONSULTATION: 07/08/2018 TYPE OF CONSULTATION: Psychological. REFERRING PHYSICIAN: Frederic Whitney MD CONSULTING PSYCHOLOGIST: Kim Morrissey, PhD REASON FOR CONSULTATION: This consultation was requested by Dr. Clay Whitney in order to evaluate t he cognitive and emotional functioning of this patient related to his present medical condition. HISTORY OF PRESENT ILLNESS: The patient is a 52-year-old male. The patient has a history of sickle cell anemia in addition to joint derangement. The patient had severe right ankle sprain. The veronica ayala was admitted and did undergo a right tibiocalcaneal fusion with external fixator placement. The frank marcos was cleared medically and then transferred to acute rehabilitation unit for acute multidiscipli nary rehabilitation. The patient has had mood disorder for quite a long time regarding all his emoti onal problems. The patient did say that he has been seeing a industrial organizational psychologist for over 10 years and has been on Wellbutrin to help him with his depression as well as to quit smoking cigarettes. The veronica ayala is on a lot of pain medication, and the patient does try to control this as much as possible. The patient is motivated to get better and does want to return to his previous level of functioning. FAMILY/SOCIAL HISTORY: The patient reports that he lives in a single-story apartment in [facility]. The patient reports that his mother has presently moved in to help him. The patient does want t o go back there after discharge. MEDICATIONS: The patient is on Wellbutrin 150 mg p.o. t.i.d. SUBSTANCE USE: The patient denies any use of alcohol or other drugs. The patient reports that he do es not smoke. MENTAL STATUS EXAMINATION: APPEARANCE: The patient was seen sitting on the side of his bed. He is of average height and overwe ight. The patient reports that he is right-handed. The patient does have a weiss and mustache. BEHAVIOR: The patient was cooperative during the consultation. The patient did attempt to answer al l questions presented to him by the interviewer. MOOD AND AFFECT: The patient's mood appears to be depressed. The patient reports that he does get d epressed about all his medical problems. He has his "blue days." The patient is aware of this and d oes try to work with this. The patient did have some slightly anxious affect. PERCEPTION: The patient reports no hallucinations or delusions. The patient was alert to person, pl jonathon, situation, and time. MEMORY AND COGNITION: The patient's memory and cognition were basically intact. The patient reports that he is still able to function cognitively even on heavy doses of pain medication. The patient w as able to say the name of the hospital. The patient was able to say the month and the year. The pa priti was able to spell "world" backwards. The patient was able to say the president of [employer] and the governor of the state. The patient did not remember who the mayor of the city is. The patient had a really difficult time with serial-7 subtractions. He was able to do 1 serial-7 subtra ction from 100; ____ he also tried it 3 times and finally got the right answer, but then could go no further. The patient said that he is not good at math and he was a little bit anxious and this may h ave related to his performance. INTELLIGENCE: Intelligence appears to fall in the average range. INSIGHT: Fair. JUDGMENT: Fair. THOUGHT CONTENT: The patient is concerned about his present medical condition. The patient is motiv ated to get better. The patient does want to work as hard as he can to return to his previous level of functioning. The patient is used to being on pain medication and has been dealing with medical pr oblems for a long time. DISCUSSION: The patient can likely benefit from some cognitive/behavioral psychotherapy while he is on the unit. It was discussed with the patient that he would likely benefit from some psychotherapy after he leaves the program. The patient was open to this and it was suggested that he may find a erapist in the [place] area that is close to him. I gave him some suggestions on how to find a psychologist that might be able to work with him. DIAGNOSTIC IMPRESSION: F06.31, mood disorder due to multiple medical problems with depressive featur es. Thank you very much, Dr. Clay Whitney, for referring this individual. Please do not hesitate to dee tejada if you have additional questions. Dictated By: KIM MORRISSEY PHD RODDY/LESLEY Conf#: [id number] DID#: [id number] CC: FREDERIC WHITNEY MD;*EndCC*
[2018-07-09 02:00] VITALS: BP 129/74; PULSE 82; RESP 18
[2018-07-09] MEDS: HYDROmorphONE 2 MG/ML SYG IV PRN ×3 (06:31→18:28)
--- NOTE | 2018-07-09 06:40 | NUR ---
Slept well. Resp unlabored. Voiding well without difficulty. Needs attended. Medicated prn for Rt ankle pain, w/ good effect. Call light within reached. no acute distress noted.
[2018-07-09 07:00] VITALS: BP 154/77; PULSE 71; RESP 18
[2018-07-09] MEDS: BUPROPION (SR) 150 MG TAB PO SCH ×3 (08:56→20:40)
[2018-07-09] MEDS: FLUTICASONE 0.05% 16 GM NAS SPRAY NASAL SCH ×2 (08:56→20:34)
[2018-07-09] MEDS: RANITIDINE 150 MG TAB PO SCH ×2 (08:56→20:40)
[2018-07-09] MEDS: METHADONE 10 MG TAB PO SCH ×2 (08:57→20:41)
[2018-07-09] MEDS: DOCUSATE SODIUM 100 MG CAP PO SCH ×2 (08:57→20:40)
[2018-07-09] MEDS: HEPARIN 5,000 UNIT/1 ML VIAL SC SCH ×2 (08:58→20:40)
[2018-07-09] MEDS: HYDROmorphONE 2 MG TAB PO PRN (11:38)
--- NOTE | 2018-07-09 11:42 | PN ---
Date/Time of Note Date/Time of Note DATE: 07/09/18 TIME: 11:41 Subjective Transition to oral meds reviewed with patient Objective Vital Signs Date Temp Pulse Resp B/P (MAP) Pulse Ox O2 O2 Flow FiO2 Time Delivery Rate 07/09/18 97.9 71 18 154/77 98 Room Air 07:00 (102) Intake and Output 07/08/18 07/08/18 07/09/18 1515:00 23:00 07:00 IntakeIntake Total 400 ml 1250 ml 1380 ml OutputOutput Total 350 ml 480 ml 800 ml BalanceBalance 50 ml 770 ml 580 ml Exam pulm-cta decreased edema s transfer Results/Medications Result Diagram: 07/06/18 1042 07/06/18 1042 Medications Current Medications Docusate Sodium (Colace) 100 mg BID PO Last administered on 07/09/18at 08:57; Admin Dose 100 MG; Start 07/01/18 at 21:00 Senna (Senokot) 1 tab HS PO Last administered on 07/02/18at 20:20; Admin Dose 1 TAB; Start 07/01/18 at 21:00 Magnesium Hydroxide (Milk Of Mag) 30 ml BID PRN PO CONSTIPATION; Start 07/01/18 at 13:00 Lactulose (Enulose) 20 gm DAILY PRN PO CONSTIPATION; Start 07/01/18 at 13:00 Bisacodyl (Dulcolax Supp) 10 mg DAILY PRN [place] CONSTIPATION; Start 07/01/18 at 13:00 Acetaminophen (Tylenol Tab) 650 mg Q4H PRN PO PAIN; Start 07/01/18 at 13:00 Miscellaneous Information (Pending [facility] Order For Wound Care) This patient wong... PRN PRN XX wound; Start 07/01/18 at 13:00 Bisacodyl (Dulcolax) 5 mg BID PRN PO CONSTIPATION; Start 07/01/18 at 13:30 Bupropion HCl (Wellbutrin Sr) 150 mg TID PO Last administered on 07/09/18at 08:56; Admin Dose 150 MG; Start 07/01/18 at 21:00 Clonidine (Catapres) 0.1 mg Q6H PRN PO HTN; Start 07/01/18 at 13:30 Fluticasone Propionate (Flonase 0.05% Nasal) 1 spray BID NASAL Last administered on 07/09/18 08:56; Admin Dose 1 SPRAY; Start 07/01/18 at 21:00 Methadone HCl (Methadone) 50 mg BID PO Last administered on 07/09/18 08:57; Admin Dose 50 MG; Start 07/01/18 at 21:00 Ranitidine HCl (Zantac) 150 mg BID PO Last administered on 07/09/18 08:56; Admin Dose 150 MG; Start 07/01/18 at 21:00 Simethicone (Mylicon) 160 mg Q6H PRN PO ACID Reflux; Start 07/01/18 at 13:30 Heparin Sodium (Porcine) (Heparin (5000 Units/1ml)) 5,000 unit BID SC Last administered on 07/09/18 08:58; Admin Dose 5,000 UNIT; Start 07/02/18 at 21 :00 Ceftriaxone Sodium 50 ml @ 100 mls/hr Q24H IVPB Last administered on 07/08/18at 17:47; Admin Dose 100 MLS/HR; Start 07/03/18 at 18:30; Stop 07/09/18 at 18:59 Hydromorphone HCl (Dilaudid) 2 mg Q4H PRN PO SEVERE PAIN LEVEL 7-10 Last administered on 07/09/18at 11:38; Admin Dose 2 MG; Start 07/08/18 at 12:00 Hydromorphone HCl (Dilaudid) 4 mg Q4H PRN IV SEVERE PAIN LEVEL 7-10 Last administered on 07/09/18 06:31; Admin Dose 4 MG; Start 07/08/18 at 12:10 Assessment/Plan Additional Assessment/Plan Rehab- 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 Continue current treatment plan. The NWB status has been a challenge, however the patient continues to improve. Acute on chronic pain syndrome-meds adjusted, oral dilaudid added. he is agreeable to a slow transition to oral pain meds Sickle cell anemia. Chronic kidney disease. Colitis. Mood disorder. FREDERIC SILVA MD Jul 09, 2018 11:42
--- NOTE | 2018-07-09 11:46 | NUR ---
[facility] PT Weekly Summary Dates From: 07/02/18 to 07/09/18 Patient Name: RERE NIXON MR#: [id number] Height: 6 ft 4 in Weight: 237 lbs 7.006 oz 107.700 kg Reason for Visit: POLYARTHRITIS DUE TO S/C Precautions: fall risk, RLE NWB, LLE PWB, RLE external fixator Date: 07/09/18 Time: 1146 User: MEGAN KIRKLAND Short-term Goals: Bed Mobility CGA Transfers CGA WC mobility SUP 150ft Pt making good progress during his stay at [facility]. Pt demonstrates Independent with bed mobility, SBA with transfers via scoot pivot transfer. SUP for WC mobility 150ft. Pt met all STG's. Recommend Manual WC with elevating leg rests and removable arm rests, drop arm commode, ramp for stairs, hospital bed and home with HHPT. Cont POC and progress as tolerated
--- NOTE | 2018-07-09 13:27 | NUR ---
PT NOTE: Bed mobility: patient has sufficient UE strength for use of trapeze for bed positioning. R)LE elevated on 2 pillows when in bed to decrease pain/edema. WC mobility: patient adjusting height of leg rests to maintain surface contact of all wheels during mobility. With B)leg rests elevated to highest point, patient loses traction on floor of L)wheel. When L)LE is lowered to lowest setting, and R)LE is not at highest point, patient is able to self propel on indoor/outdoor surfaces. Ascending ramp, this therapist is behind w/c for support if needed. Patient able to complete ascending ramp with SBA. Discussed transport of w/c in vehicle, and demonstrated technique for placing/removing leg rests. Recommend patient continue with trunk strengthening exercises, and to research seated TaiChi exercises.
--- NOTE | 2018-07-09 13:45 | PN ---
Date/Time of Note Date/Time of Note DATE: 07/09/18 TIME: 13:44 Assessment/Plan VTE Prophylaxis Risk score (from Nsg)>0 risk: 3 SCD applied (from Nsg): Yes Pharmacological prophylaxis: heparin Lines/Catheters IV Catheter Type (from Nrsg): Saline Lock Urinary Cath still in place: No Assessment/Plan Hospital Course SUBJECTIVE: No acute episodes. Participates w/ physical therapy well. OBJECTIVE: Vital signs-see below PHYSICAL EXAM: Constitutional: Pleasant -[place] male not in acute distress.. Psych: nl mood/affect, no complaints Head: atraumatic, normocephalic Eyes: nl conjunctiva, nl sclera ENMT: mucosa pink and moist, nl external ears & nose Neck: non-tender, supple Respiratory: clear to auscultation, normal air movement Cardiovascular: nl pulses, regular rate and rhythm Gastrointestinal: non-tender, soft, bowel sounds active in all 4 quadrants. Musculoskeletal/extremities: Right foot w/ dressing/boot, status post fixation surgery. Nl extremities to inspection, motor strength equal bilaterally, no focal deficit. Normal pulses,no cyanosis, no edema. Neurological: Alert oriented 3,nl speech, nl strength Skin: nl turgor ASSESSMENT/PLAN: 52-year-old male with sickle cell anemia, underwent right foot podiatric surgical intervention transferred for further physical therapy. 1. Bilateral ankle deformity s/p surgical intervention 06/27/18 - s/p right tibiocalcaneal fusion with autologous bone graft and multiplane external fixator. Will need to remain in fixator for the next 2 months per podiatry.Abx per podiatry - PT on board and appreciate recommendations. 2. ALCON on CKD- stable - Baseline Cr 1.6-1.8 -Stable 3. Chronic leukocytosis. -Monitor 4. Chronic pain - Patient is on methadone as outpatient which is managed by his Work Counselor - On Dilaudid for breakthrough pain as well,Palliative care managing pain medications - Well-controlled. 5. Mood disorder - Continue Wellbutrin TID 6. GERD - H2 eze 7. Sickle cell anemia -Baseline hgb 6.7-7 -stable. DVT prophylaxis: Heparin PUD prophylaxis: H2 blockers CODE STATUS: Full code Diet: Regular. Patient was seen in collaboration with . Exam/Review of Systems Vital Signs Vitals Vital Signs Date Temp Pulse Resp B/P (MAP) Pulse Ox O2 O2 Flow FiO2 Time Delivery Rate 07/09/18 97.9 71 18 154/77 98 Room Air 07:00 (102) Intake and Output 07/08/18 07/08/18 07/09/18 1515:00 23:00 07:00 IntakeIntake Total 400 ml 1250 ml 1380 ml OutputOutput Total 350 ml 480 ml 800 ml BalanceBalance 50 ml 770 ml 580 ml MORA BETH V. SENIOR PRODUCT DESIGNER Jul 09, 2018 13:45
[2018-07-09 14:00] VITALS: BP 147/77; PULSE 93; RESP 18
[2018-07-09] MEDS: CEFTRIAXONE 1 GM/50 ML (PMX) 50 ML IVPB SCH (17:40)
--- NOTE | 2018-07-09 18:31 | NUR ---
Patient is alert and breathing even. no SOB. patient c/o pain 6-7 / 10. PRN Dilaudid IV given and effective. patients pain down to 3 after 30mins. Patient stated that Dilaudid 2mg PO is not helping. patient is cooperative during care. IV line on Left arm. patent and intact with no s/sx of malfunction. Patient on IV/ABT for Right ankle surgery with no A/R.
[2018-07-09] MEDS: SENNA TAB PO SCH (20:43)
[2018-07-10] MEDS: HYDROmorphONE 2 MG TAB PO PRN (01:10)
[2018-07-10 02:29] VITALS: BP 139/71; PULSE 72; RESP 18
[2018-07-10] MEDS: HYDROmorphONE 2 MG/ML SYG IV PRN ×3 (05:18→16:37)
--- NOTE | 2018-07-10 05:48 | NUR ---
EOSS: Pt awake, no s/s of distress. Slept poorly tonight. Verbalized relief of pain after interventions. Due meds given. Needs attended to. Safety precautions in place. Kept comfortable. Frequent checks done. Will endorse accordingly.
[2018-07-10 07:30] VITALS: BP 141/73; PULSE 76; RESP 20
--- NOTE | 2018-07-10 08:39 | CONS ---
Date/Time of Note Date/Time of Note DATE: 07/10/18 TIME: 08:35 Assessment/Plan Assessment/Plan Additional Assessment/Plan Sickle cell disease No recent history of crisis Past medical history of acute lung syndrome Opioid tolerance Vision has a photographic machine operator is following him closely as an outpatient And is prescribing his methadone Have continued his methadone and 50 mg p.o. twice daily plus breakthrough Dilaudid 4 mg IV every 4 as needed Patient is not drug seeking but his drug tolerant I would suggest continuing with the current high-dose of opioids. Adjustments of his pain control medications to be left his photographic machine operator as an outpatient. I would not prescribe any opioids at this time patient is discharged but to tell him to continue on his outpatient methadone. Consultation Date/Type/Reason Admit Date/Time Jul 01, 2018 at 12:50 Hx of Present Illness Assessment/Plan Initial Consultation HPI Consultation Date/Type/Reason Admit Date/Time Jun 22, 2018 at 16:27 Hx of Present Illness Patient has been moved to rehabilitation kwong. Apparently the screws in his ankle and according to patient and he is waiting for the results of imaging studies done yesterday. He requests no change in his current pain control medications until studies return and orthopedic surgery makes the recommendation. Sickle cell symptoms are under control. This is a very pleasant 52-year-old gentleman who presents to [facility] for elective right ankle ORIF. Please refer to dictated details of upcoming surgical intervention. I am asked to see patient in pain management consultation. This gentleman has a long-standing history of sickle cell disease SS diagnosed in childhood. He has approximately 4 crises per year which she is able to treat effectively at home without hospitalization. He has had applications related to sickle cell including bilateral lower extremity vaso-occlusive disease right lung pneumonia with pleural effusion status post cholecystectomy. As a child he has had one bout of osteomyelitis. Of his left lower extremity. She currently is pain-free. Purpose of the consultation is to get an outpatient and to control his pain postoperatively. He has been admitted and is being transfused in preparation for upcoming surgical procedure. Patient is currently pain control medication given to him by his primary care photographic machine operator include methadone 10 mg to be taken 5 pills twice daily scheduled. States he has been on this regimen for prolonged period of time he tries to avoid short acting opioids during hospitalization has quite a use of Dilaudid as necessary. Once again patient is pain-free at this time. He has no past medical history of IV drug abuse. He is not a smoker nor drinker he does not be appear to be unkempt or impaired in any manner is not advocating the use of high doses of short acting opioids per noisy insisting on certain pain control medications. There is no past medical history of contact with street drug culture, adamantly adamantly denies illicit drug use. Constitutional: no complaints, improved Eyes: no complaints; No pain, No discharge, No redness, No visual change, No other ENT: no complaints Respiratory: no complaints; No pain, No cough, No pleuritic pain, No shortness of breath, No sputum, No wheezing, No other Cardiovascular: no complaints; No chest pain, No edema, No lightheadedness, No orthopenea, No palpitations, No paroxysmal nocturnal dyspnea, No other Gastrointestinal: no complaints; No pain, No blood, No constipation, No decreased appetite, No diarrhea, No flatus, No nausea, No passing stool, No vomiting, No other Genitourinary: no complaints; No bleeding, No dysuria, No discharge, No flank pain, No hematuria, No other Musculoskeletal: other (Refer to history of present illness) Initial Consultation Hx Past Medical History Medical History: other (Elsa syndrome and depression) Past Surgical History Past Surgical Hx: cholecystectomy, other Social History Alcohol Use: none Smoking Status: Never smoker Drug Use: none Exam/Review of Systems Exam/Review of Systems Vital Signs Vitals Vital Signs Date Temp Pulse Resp B/P (MAP) Pulse Ox O2 O2 Flow FiO2 Time Delivery Rate 07/01/18 98.2 85 18 133/79 100 Room Air 07:18 (97) Exam Constitutional: alert, oriented, well developed Psych: no complaints, nl mood/affect ENMT: nl external ears & nose, nl lips & teeth, nl nasal mucosa & septum Respiratory: clear to auscultation, normal air movement; No congested cough, No crackles/rales, No diminished breath sounds, No intercostal retraction, No labored breathing, No respirations, No tactile fremitus, No wheezing, No other Cardiovascular: regular rate and rhythm, nl pulses; No bruits, No diastolic murmur, No edema, No gallop, No irregular rhythm, No jugular venous distention (JVD), No murmurs/extra sounds, No rub, No systolic murmur, No S3, No S4, No other Neurological: ARTISTS' MODEL II-XII intact, nl mental status, nl speech, nl strength Results Result Diagram: 07/01/18 1202 07/01/18 0435 Copies To: Copies To: JEAN MARIEVERNAMANDO HOLDERMarissa Fuller Jul 03, 2018 08:59 This is a very pleasant 52-year-old gentleman who presents to [facility] for elective right ankle ORIF. Please refer to dictated details of upcoming surgical intervention. I am asked to see patient in pain management consultation. This gentleman has a long-standing history of sickle cell disease SS diagnosed in childhood. He has approximately 4 crises per year which she is able to treat effectively at home without hospitalization. He has had applications related to sickle cell including bilateral lower extremity vaso-occlusive disease right lung pneumonia with pleural effusion status post cholecystectomy. As a child he has had one bout of osteomyelitis. Of his left lower extremity. She currently is pain-free. Purpose of the consultation is to get an outpatient and to control his pain postoperatively. He has been admitted and is being transfused in preparation for upcoming surgical procedure. Patient is currently pain control medication given to him by his primary care photographic machine operator include methadone 10 mg to be taken 5 pills twice daily scheduled. States he has been on this regimen for prolonged period of time he tries to avoid short acting opioids during hospitalization has quite a use of Dilaudid as necessary. Once again patient is pain-free at this time. He has no past medical history of IV drug abuse. He is not a smoker nor drinker he does not be appear to be unkempt or impaired in any manner is not advocating the use of high doses of short acting opioids per noisy insisting on certain pain control medications. There is no past medical history of contact with street drug culture, adamantly adamantly denies illicit drug use. Past Medical History Medical History: other (Sickle cell disease) Medications Current Medications Docusate Sodium (Colace) 100 mg BID PO Last administered on 07/09/18at 20:40; Admin Dose 100 MG; Start 07/01/18 at 21:00 Senna (Senokot) 1 tab HS PO Last administered on 07/02/18at 20:20; Admin Dose 1 TAB; Start 07/01/18 at 21:00 Magnesium Hydroxide (Milk Of Mag) 30 ml BID PRN PO CONSTIPATION; Start 07/01/18 at 13:00 Lactulose (Enulose) 20 gm DAILY PRN PO CONSTIPATION; Start 07/01/18 at 13:00 Bisacodyl (Dulcolax Supp) 10 mg DAILY PRN [place] CONSTIPATION; Start 07/01/18 at 13:00 Acetaminophen (Tylenol Tab) 650 mg Q4H PRN PO PAIN; Start 07/01/18 at 13:00 Miscellaneous Information (Pending [facility] Order For Wound Care) This patient wong... PRN PRN XX wound; Start 07/01/18 at 13:00 Bisacodyl (Dulcolax) 5 mg BID PRN PO CONSTIPATION; Start 07/01/18 at 13:30 Bupropion HCl (Wellbutrin Sr) 150 mg TID PO Last administered on 07/09/18at 20:40; Admin Dose 150 MG; Start 07/01/18 at 21:00 Clonidine (Catapres) 0.1 mg Q6H PRN PO HTN; Start 07/01/18 at 13:30 Fluticasone Propionate (Flonase 0.05% Nasal) 1 spray BID NASAL Last administered on 07/09/18at 20:34; Admin Dose 1 SPRAY; Start 07/01/18 at 21:00 Methadone HCl (Methadone) 50 mg BID PO Last administered on 07/09/18at 20:41; Admin Dose 50 MG; Start 07/01/18 at 21:00 Ranitidine HCl (Zantac) 150 mg BID PO Last administered on 07/09/18at 20:40; Admin Dose 150 MG; Start 07/01/18 at 21:00 Simethicone (Mylicon) 160 mg Q6H PRN PO ACID Reflux; Start 07/01/18 at 13:30 Heparin Sodium (Porcine) (Heparin (5000 Units/1ml)) 5,000 unit BID SC Last administered on 07/09/18at 20:40; Admin Dose 5,000 UNIT; Start 07/02/18 at 21:0 0 Hydromorphone HCl (Dilaudid) 2 mg Q4H PRN PO SEVERE PAIN LEVEL 7-10 Last administered on 07/10/18at 01:10; Admin Dose 2 MG; Start 07/08/18 at 12:00 Hydromorphone HCl (Dilaudid) 4 mg Q4H PRN IV SEVERE PAIN LEVEL 7-10 Last administered on 07/10/18at 05:18; Admin Dose 4 MG; Start 07/08/18 at 12:10 Allergies: Coded Allergies: No Known Allergy (Unverified , 06/22/18) Past Surgical History Past Surgical Hx: cholecystectomy, other Social History Alcohol Use: none Smoking Status: Never smoker Exam/Review of Systems Vital Signs Vitals Vital Signs Date Temp Pulse Resp B/P (MAP) Pulse Ox O2 O2 Flow FiO2 Time Delivery Rate 07/10/18 97.4 76 20 141/73 99 Room Air 07:30 (95) Intake and Output 07/09/18 07/09/18 07/10/18 1515:00 23:00 07:00 IntakeIntake Total 2210 ml 540 ml OutputOutput Total 800 ml 1700 ml 1250 ml BalanceBalance -800 ml 510 ml -710 ml Exam Psych: anxiety Musculoskeletal: swelling, other (Bandaged heavily hardware in place medial and lateral aspect of his ankle) Neurological: ARTISTS' MODEL II-XII intact, nl mental status, nl speech, nl strength; No confused, No DTR's symmetric, No focal weakness, No lethargic, No numbness, No reflexes, No unresponsive, No other PETROS LÓPEZ Jul 10, 2018 08:39
[2018-07-10] MEDS: FLUTICASONE 0.05% 16 GM NAS SPRAY NASAL SCH ×2 (09:00→20:32)
[2018-07-10] MEDS: RANITIDINE 150 MG TAB PO SCH ×2 (09:02→20:22)
[2018-07-10] MEDS: BUPROPION (SR) 150 MG TAB PO SCH ×3 (09:02→20:22)
[2018-07-10] MEDS: METHADONE 10 MG TAB PO SCH ×2 (09:02→20:22)
[2018-07-10] MEDS: DOCUSATE SODIUM 100 MG CAP PO SCH ×2 (09:03→20:22)
--- NOTE | 2018-07-10 09:20 | NUR ---
PT note Patient refused session due to abdominal pain and cramping. Encouraged LE AROM in bed, patient refused. Will attempt to reschedule 30 minutes later in day.
--- NOTE | 2018-07-10 10:44 | PN ---
Date/Time of Note Date/Time of Note DATE: 07/10/18 TIME: 10:43 Assessment/Plan VTE Prophylaxis Risk score (from Nsg)>0 risk: 3 SCD applied (from Nsg): Yes Pharmacological prophylaxis: heparin Lines/Catheters IV Catheter Type (from Nrsg): Saline Lock Urinary Cath still in place: No Assessment/Plan Hospital Course SUBJECTIVE: No acute episodes. Participates w/ physical therapy well. OBJECTIVE: Vital signs-see below PHYSICAL EXAM: Constitutional: Pleasant -Iraqi male not in acute distress.. Psych: nl mood/affect, no complaints Head: atraumatic, normocephalic Eyes: nl conjunctiva, nl sclera ENMT: mucosa pink and moist, nl external ears & nose Neck: non-tender, supple Respiratory: clear to auscultation, normal air movement Cardiovascular: nl pulses, regular rate and rhythm Gastrointestinal: non-tender, soft, bowel sounds active in all 4 quadrants. Musculoskeletal/extremities: Right foot w/ dressing/boot, status post fixation surgery. +Edema noted on right ankle/dorsum of foot. Nl extremities to inspection, motor strength equal bilaterally, no focal deficit. Normal pulses,no cyanosis, Neurological: Alert oriented 3,nl speech, nl strength Skin: nl turgor ASSESSMENT/PLAN: 52-year-old male with sickle cell anemia, underwent right foot podiatric surgical intervention transferred for further physical therapy. 1. Bilateral ankle deformity s/p surgical intervention 06/27/18 - s/p right tibiocalcaneal fusion with autologous bone graft and multiplane external fixator. Will need to remain in fixator for the next 2 months per podiatry.Abx per podiatry - PT on board and appreciate recommendations. 2. ALCON on CKD- stable - Baseline Cr 1.6-1.8 -Stable 3. Chronic leukocytosis. -Monitor 4. Chronic pain - Patient is on methadone as outpatient which is managed by his System Engineer - On Dilaudid for breakthrough pain as well,Palliative care managing pain medications - Well-controlled. 5. Mood disorder - Continue Wellbutrin TID 6. GERD - H2 eze 7. Sickle cell anemia -Baseline hgb 6.7-7 -stable. DVT prophylaxis: Heparin PUD prophylaxis: H2 blockers CODE STATUS: Full code Diet: Regular. Patient was seen in collaboration with . Exam/Review of Systems Vital Signs Vitals Vital Signs Date Temp Pulse Resp B/P (MAP) Pulse Ox O2 O2 Flow FiO2 Time Delivery Rate 07/10/18 97.4 76 20 141/73 99 Room Air 07:30 (95) Intake and Output 07/09/18 07/09/18 07/10/18 1515:00 23:00 07:00 IntakeIntake Total 2210 ml 540 ml OutputOutput Total 800 ml 1700 ml 1250 ml BalanceBalance -800 ml 510 ml -710 ml MORA BETH V. KOHINOOR OPERATOR Jul 10, 2018 10:44
--- NOTE | 2018-07-10 10:49 | PN ---
Date/Time of Note Date/Time of Note DATE: 07/10/18 TIME: 10:47 Subjective overall improving Objective Vital Signs Date Temp Pulse Resp B/P (MAP) Pulse Ox O2 O2 Flow FiO2 Time Delivery Rate 07/10/18 97.4 76 20 141/73 99 Room Air 07:30 (95) Intake and Output 07/09/18 07/09/18 07/10/18 1515:00 23:00 07:00 IntakeIntake Total 2210 ml 540 ml OutputOutput Total 800 ml 1700 ml 1250 ml BalanceBalance -800 ml 510 ml -710 ml Exam pulm-cta abd-soft ext- decreased edema s transfer s wheelchair mobility Results/Medications Result Diagram: 07/06/18 1042 07/06/18 1042 Medications Current Medications Docusate Sodium (Colace) 100 mg BID PO Last administered on 07/10/18at 09:03; Admin Dose 100 MG; Start 07/01/18 at 21:00 Senna (Senokot) 1 tab HS PO Last administered on 07/02/18at 20:20; Admin Dose 1 TAB; Start 07/01/18 at 21:00 Magnesium Hydroxide (Milk Of Mag) 30 ml BID PRN PO CONSTIPATION; Start 07/01/18 at 13:00 Lactulose (Enulose) 20 gm DAILY PRN PO CONSTIPATION; Start 07/01/18 at 13:00 Bisacodyl (Dulcolax Supp) 10 mg DAILY PRN [place] CONSTIPATION; Start 07/01/18 at 13:00 Acetaminophen (Tylenol Tab) 650 mg Q4H PRN PO PAIN; Start 07/01/18 at 13:00 Miscellaneous Information (Pending [facility] Order For Wound Care) This patient wong... PRN PRN XX wound; Start 07/01/18 at 13:00 Bisacodyl (Dulcolax) 5 mg BID PRN PO CONSTIPATION; Start 07/01/18 at 13:30 Bupropion HCl (Wellbutrin Sr) 150 mg TID PO Last administered on 07/10/18at 09:02; Admin Dose 150 MG; Start 07/01/18 at 21:00 Clonidine (Catapres) 0.1 mg Q6H PRN PO HTN; Start 07/01/18 at 13:30 Fluticasone Propionate (Flonase 0.05% Nasal) 1 spray BID NASAL Last administered on 07/10/18at 09:00; Admin Dose 1 SPRAY; Start 07/01/18 at 21:00 Methadone HCl (Methadone) 50 mg BID PO Last administered on 07/10/18 09:02; Admin Dose 50 MG; Start 07/01/18 at 21:00 Ranitidine HCl (Zantac) 150 mg BID PO Last administered on 07/10/18 09:02; Admin Dose 150 MG; Start 07/01/18 at 21:00 Simethicone (Mylicon) 160 mg Q6H PRN PO ACID Reflux; Start 07/01/18 at 13:30 Heparin Sodium (Porcine) (Heparin (5000 Units/1ml)) 5,000 unit BID SC Last administered on 07/09/18at 20:40; Admin Dose 5,000 UNIT; Start 07/02/18 at 21:00 Hydromorphone HCl (Dilaudid) 2 mg Q4H PRN PO SEVERE PAIN LEVEL 7-10 Last administered on 07/10/18at 01:10; Admin Dose 2 MG; Start 07/08/18 at 12:00 Hydromorphone HCl (Dilaudid) 4 mg Q4H PRN IV SEVERE PAIN LEVEL 7-10 Last administered on 07/10/18at 05:18; Admin Dose 4 MG; Start 07/08/18 at 12:10 Assessment/Plan Additional Assessment/Plan Rehab- 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 Patient doing well, pain under control, and improving mobility. Progress reviewed with staff. Acute on chronic pain syndrome- slow transition to oral pain meds GI- results with bowel program Sickle cell anemia. Chronic kidney disease. Colitis. Mood disorder. FREDERIC SILVA MD Jul 10, 2018 10:49
--- NOTE | 2018-07-10 10:51 | NUR ---
[facility] OT Weekly Summary Dates From: 07/03/18 to 07/10/18 Patient Name: RERE NIXON MR#: [id number] Height: 6 ft 4 in Weight: 237 lbs 7.006 oz 107.700 kg Reason for Visit: POLYARTHRITIS DUE TO S/C Precautions: NWB RLE, PWB LLE, elevate RLE in bed on pillows or elevated foam wedge, fall risk Date: 07/10/18 Time: 1051 User: CLOVIS VIRK Short-term Goals: [facility] OT Short term Goal 1 Pt will be Indep w/ Grooming VR OT Short term Goal 2 Pt will be Mod Indep w/ Bathing VR OT Short term Goal 3 Pt will be indep/ mod indep w/ UB/LB dress VR OT Short term Goal 4 Pt will be Mod Indep w/ toileting VR OT Short term Goal 5 Pt will be Mod Indep w/ functional transfers Upon initial eval pt functional levels were the following: Grooming: SBA, Bathing: Mod A, UE/LE Dress: SBA/Min A, Toileting: Min A, and Transfers: Min A. Pt current functional levels are the following: Grooming: Mod I, Bathing: Min A, UE/LE Dress: I/SUP, Toileting: Mod I, and Transfers: Mod I. Pt making progress towards goals through ADL retraining, transfer training, pt edu, and ther act/ex for CO to ADLs/act john. Barriers to therapy include: 2 days of limited OOB activity per DR., and pt loquacious resulting in moderate redirection to participate. DC Disposition: Home with family support and OT PT. Recommend S/C, drop arm commode, and W/C to increase safety and independence at home.
[2018-07-10] MEDS: HEPARIN 5,000 UNIT/1 ML VIAL SC SCH ×2 (12:31→20:32)
[2018-07-10 14:00] VITALS: BP 136/73; PULSE 75; RESP 18
--- NOTE | 2018-07-10 17:13 | NUR ---
Patient is alert and breathing even. no SOB. patient c/o pain. PRN Dilaudid IV given and was effective. patient pain goal met at 3 in pain scale. patient is cooperative during care. Patient with external fixator. no s/sx of bleeding. no c/o numbness.
--- NOTE | 2018-07-10 17:47 | PN ---
Date/Time of Note Date/Time of Note DATE: 07/10/18 TIME: 17:47 Assessment/Plan VTE Prophylaxis Risk score (from Nsg)>0 risk: 3 Pharmacological prophylaxis: heparin Lines/Catheters IV Catheter Type (from Nrsg): Saline Lock Urinary Cath still in place: No Assessment/Plan Hospital Course 52 y/o M patient with hx of sickle cell anemia and bilateral adult acquired club foot deformity. Patient had hindfoot arthrodesis with application of ilizarov external fixator on 06/27/18. Patient is at the acute rehab floor for further physical therapy and monitoring. Patient noted clear draining to this dressings. Denies f/c/n/v, no chest pain or shortness of breath. Denies any damage or trauma to the surgery site. Assessment/Plan 1) Adult acquired club foot deformity b/l s/p RLE hindfoot fusion and applicati on of ex-fix 2) Sickle cell anemia 3) Edema RLE 4) Chronic pain 5) Leukocytosis - down trending Plan: Due to patient's left foot deformity which limits his ability for transfers and his sickle cell with chronic pain history patient would benefit from extended care at acute rehab. Recommend patient to be non-weight right lower extremity. Only use left lower extremity for transfers. Continue with pain control. Emphasized nursing staff to elevate right lower extremity with pillows and or soft wedge elevator. No hardware failure. Safety precautions reinforced. Continue with DVT prophylaxis. Medical decisions, treatment, and plan coordinated with Dr. Crook. Subjective 24 Hr Interval Summary Free Text/Dictation No acute events overnight. Exam/Review of Systems Vital Signs Vitals Vital Signs Date Temp Pulse Resp B/P (MAP) Pulse Ox O2 O2 Flow FiO2 Time Delivery Rate 07/10/18 98.3 75 18 136/73 94 Room Air 14:00 (94) Intake and Output 07/09/18 07/09/18 07/10/18 1515:00 23:00 07:00 IntakeIntake Total 2210 ml 540 ml OutputOutput Total 800 ml 1700 ml 1250 ml BalanceBalance -800 ml 510 ml -710 ml Exam Ex-fix in rectus alignment. No sign of wound dehiscence to the incision site. Non-pitting edema to the right lower extremity. Mild pain on palpation to right lower extremity surgery site. There is no loosening of the ex-fix appreciated. Capillary refill time to digits less than 3 seconds. MARCELINA COATES DPM Jul 10, 2018 17:47
[2018-07-10 19:19] VITALS: BP_SYST 138; BP_SYST 148; BP_DIAS 75; PULSE 79; RESP 18
[2018-07-10] MEDS: SENNA TAB PO SCH (20:32)
[2018-07-11] MEDS: HYDROmorphONE 2 MG/ML SYG IV PRN ×4 (01:31→18:14)
[2018-07-11 02:00] VITALS: BP 133/62; PULSE 76; RESP 18
--- NOTE | 2018-07-11 05:33 | NUR ---
PT IS RESTING ON BED. C/O PAIN ON HIS RIGHT FOOT, MEDICATED WITH METHADONE AND DILAUDID, PARTIALLY EFFECTIVE. NO DISTRESS NOTED. KEPT RLE ELEVATED ON PILLOW. HAD BM X 1 IN TOILET. ASSISTED PT TO TRANSFER TO TOILET. FALL PRECAUTION. ALL NEEDS ATTENDED. PT STILL REFUSED BED ALARM. EXPLAINED TO PT RISKS AND BENEFITS, PT STILL REFUSED. CALL LIGHT AND TABLE ARE WITHIN REACH.
[2018-07-11 07:00] VITALS: BP 155/74; PULSE 89; RESP 17
[2018-07-11] MEDS: FLUTICASONE 0.05% 16 GM NAS SPRAY NASAL SCH ×2 (09:21→20:30)
[2018-07-11] MEDS: METHADONE 10 MG TAB PO SCH ×2 (09:23→20:30)
[2018-07-11] MEDS: BUPROPION (SR) 150 MG TAB PO SCH ×3 (09:24→18:35)
[2018-07-11] MEDS: RANITIDINE 150 MG TAB PO SCH ×2 (09:24→20:30)
[2018-07-11] MEDS: DOCUSATE SODIUM 100 MG CAP PO SCH ×2 (09:24→20:30)
[2018-07-11] MEDS: HEPARIN 5,000 UNIT/1 ML VIAL SC SCH ×2 (09:30→20:41)
--- NOTE | 2018-07-11 11:32 | PN ---
Date/Time of Note Date/Time of Note DATE: 07/11/18 TIME: 11:32 Subjective Still with pain, but improving Objective Vital Signs Date Temp Pulse Resp B/P (MAP) Pulse Ox O2 O2 Flow FiO2 Time Delivery Rate 07/11/18 97.0 89 17 155/74 95 Room Air 07:00 (101) Intake and Output 07/10/18 07/10/18 07/11/18 1414:59 22:59 06:59 IntakeIntake Total 720 ml 600 ml OutputOutput Total 600 ml 1000 ml BalanceBalance 120 ml -400 ml Exam pulm-cta abd-soft s transfer Results/Medications Medications Current Medications Docusate Sodium (Colace) 100 mg BID PO Last administered on 07/11/18at 09:24; Admin Dose 100 MG; Start 07/01/18 at 21:00 Senna (Senokot) 1 tab HS PO Last administered on 07/02/18at 20:20; Admin Dose 1 TAB; Start 07/01/18 at 21:00 Magnesium Hydroxide (Milk Of Mag) 30 ml BID PRN PO CONSTIPATION; Start 07/01/18 at 13:00 Lactulose (Enulose) 20 gm DAILY PRN PO CONSTIPATION; Start 07/01/18 at 13:00 Bisacodyl (Dulcolax Supp) 10 mg DAILY PRN [place] CONSTIPATION; Start 07/01/18 at 13:00 Acetaminophen (Tylenol Tab) 650 mg Q4H PRN PO PAIN; Start 07/01/18 at 13:00 Miscellaneous Information (Pending [facility] Order For Wound Care) This patient wong... PRN PRN XX wound; Start 07/01/18 at 13:00 Bisacodyl (Dulcolax) 5 mg BID PRN PO CONSTIPATION; Start 07/01/18 at 13:30 Bupropion HCl (Wellbutrin Sr) 150 mg TID PO Last administered on 07/11/18at 09:24; Admin Dose 150 MG; Start 07/01/18 at 21:00 Clonidine (Catapres) 0.1 mg Q6H PRN PO HTN; Start 07/01/18 at 13:30 Fluticasone Propionate (Flonase 0.05% Nasal) 1 spray BID NASAL Last administered on 07/11/18at 09:21; Admin Dose 1 SPRAY; Start 07/01/18 at 21:00 Methadone HCl (Methadone) 50 mg BID PO Last administered on 07/11/18at 09:23; Admin Dose 50 MG; Start 07/01/18 at 21:00 Ranitidine HCl (Zantac) 150 mg BID PO Last administered on 07/11/18at 09:24; Admin Dose 150 MG; Start 07/01/18 at 21:00 Simethicone (Mylicon) 160 mg Q6H PRN PO ACID Reflux; Start 07/01/18 at 13:30 Heparin Sodium (Porcine) (Heparin (5000 Units/1ml)) 5,000 unit BID SC Last administered on 07/11/18at 09:30; Admin Dose 5,000 UNIT; Start 07/02/18 at 21:00 Hydromorphone HCl (Dilaudid) 2 mg Q4H PRN PO SEVERE PAIN LEVEL 7-10 Last administered on 07/10/18at 01:10; Admin Dose 2 MG; Start 07/08/18 at 12:00 Hydromorphone HCl (Dilaudid) 4 mg Q4H PRN IV SEVERE PAIN LEVEL 7-10 Last administered on 07/11/18at 06:25; Admin Dose 4 MG; Start 07/08/18 at 12:10 Assessment/Plan Additional Assessment/Plan Rehab- Overall patient has been making steady functional gains. The WB status is the primary barrier, however transfers have improved Paijn- working on transition to oral meds Sickle Cell Anemia FREDERIC SILVA MD Jul 11, 2018 11:32
--- NOTE | 2018-07-11 13:39 | PN ---
Date/Time of Note Date/Time of Note DATE: 07/11/18 TIME: 13:34 Assessment/Plan VTE Prophylaxis Risk score (from Ns)>0 risk: 4 SCD applied (from [facility] [place] SCD contraindicated: other (New external fixator device in place) Pharmacological prophylaxis: heparin Lines/Catheters IV Catheter Type (from [facility] Saline Lock Urinary Cath still in place: No Assessment/Plan Problems: (1) Acquired bilateral club feet Status: Chronic Comment: He has had 1 out of 2 repaired. At this time he is doing well and has adequate pain control without evidence of infection (2) S/P ankle fusion Status: Acute Comment: Sternal fixator in place. Continue with rehabilitative care (3) Chronic kidney disease, stage II (mild) Status: Chronic Comment: Has returned to baseline state (4) Sickle cell anemia Status: Chronic Comment: Noted. Qualifiers: Sickle-cell associated disorders: without crisis Qualified Codes: D57.1 - Sickle-cell disease without crisis (5) Chronic pain syndrome Status: Chronic Comment: Adequate control (6) Obesity (BMI 30.0-34.9) Status: Chronic Comment: Noted (7) Status post cholecystectomy Status: Chronic Comment: Noted Subjective 24 Hr Interval Summary Free Text/Dictation Brook jonas sitting in bed. He reports his pain is under control at this time due to the careful adjustment of his pain medications. Constitutional: no complaints (Denies fevers chills or sweats) Respiratory: no complaints Cardiovascular: no complaints Gastrointestinal: no complaints Exam/Review of Systems Vital Signs Vitals Vital Signs Date Temp Pulse Resp B/P (MAP) Pulse Ox O2 O2 Flow FiO2 Time Delivery Rate 07/11/18 97.0 89 17 155/74 95 Room Air 07:00 (101) Intake and Output 07/10/18 07/10/18 07/11/18 1515:00 23:00 07:00 IntakeIntake Total 720 ml 600 ml OutputOutput Total 600 ml 1000 ml BalanceBalance 120 ml -400 ml Exam Brook -Polish gentleman Constitutional: alert, oriented Neck: supple, non-tender Respiratory: clear to auscultation, normal air movement Cardiovascular: regular rate and rhythm, nl pulses Gastrointestinal: soft, nl liver, spleen, non-tender Extremities: other (External fixator to the right lower extremity, no discharge or bleeding from any of the pin insertion sites, no evidence of cellulitis; left foot with a significant deformity pending future surgery) SOHEILA ALEJANDRE MD Jul 11, 2018 13:39
[2018-07-11 14:00] VITALS: BP 132/72; PULSE 96; RESP 16
--- NOTE | 2018-07-11 18:47 | NUR ---
EOSS Patient a and o x 4. Up in wheelchair off and on during day. VSS, BP elevated but not more than 160 systolic. Scant bleeding noted from pin insertion site on inner right malleolus after he worked with occupational therapy, stopped on its own and did not reappear the two other times during the shift he was up in wheelchair. No signs of infection noted except for mild edema in right ankle. Wellbutrin rescheduled to be given at 0900, 1200, and 1800 because patient reported trouble sleeping when Wellbutrin was given at 2100. Dilaudid IV given twice during shift, dose has been decreased to 3mg IV q 4 hours prn, po dose increased to 4mg po q 4 hours prn. Hourly rounding performed, bed in low, locked position.
[2018-07-11 19:18] VITALS: BP 142/68; PULSE 85; RESP 18
--- NOTE | 2018-07-11 19:57 | NUR ---
[facility] RN Weekly Summary Dates From: 07/07/18 to 07/11/18 Patient Name: RERE NIXON MR#: [id number] Height: 6 ft 1 in Weight: 238 lbs 1.588 oz 108.000 kg Reason for Visit: POLYARTHRITIS DUE TO S/C Precautions: Fall. Date: 07/11/18 Time: 1957 User: FAWN DE SOUZA Short-term Goals: 1. Patient will have no sign/symptoms of surgical site complication 2. Patient will be free from fall or injury 3. Patient's skin integrity will be maintained 4. Patient's pain level will be well controlled Patient's progress:fair Short-term goals not met and reason/barriers: Ongoing Bladder - level of function and accidents: 5, no accidents Bowel - level of function and accidents: 6, no accidents Skin: NON-INTACT, LEFT FOOT CALLOUS. LT ELBOW SCAB,LOWER ABDOMEN BRUISE Status;RT ANKLE FUSION WITH EXTERNAL FIXATOR Treatment:NONE Changes:NONE Pain:PRESENT Level:5-8/10 Location:RT ANKLE Management:METHADONE 50 MG PO BID,DILAUDID 4 MG IV Q 4 HRS PRN Changes:no Functional levels: Self Care:4 Transfers:3 Locomotion:6, W/C Assistance requirements: Communication:7 Social Cognition:6 Safety awareness:YES,HIGH RISK FOR FALL Interdisciplinary interactions:PT/OT/SW/RN/MD Patient education:YES,GIVEN Q SHIFT AND PRN REGARDING MEDICATION AND FALL Discharge needs:ON GOING Comorbid conditions: 1. Acute on chronic pain syndrome. 2. Sickle cell anemia. 3. Chronic kidney disease. 4. Colitis. 5. Mood disorder. 6. Impairments in self-care and mobility. Plan of Care continuation:YES, CONTINUE CURRENT PLAN OF CARE
[2018-07-11] MEDS: SENNA TAB PO SCH (20:42)
[2018-07-12 02:00] VITALS: BP 136/75; PULSE 89; RESP 18
[2018-07-12] MEDS: HYDROmorphONE 2 MG/ML SYG IV PRN ×2 (06:14→14:52)
[2018-07-12 07:00] VITALS: BP 140/75; PULSE 78; RESP 18
--- NOTE | 2018-07-12 07:26 | NUR ---
PT REFUSED BED ALARM. PT'S TEACHING GIVEN REGARDING BOUT SAFETY AND MEDICATION SIDE EFFECTS. VERBALIZED UNDERSTANDING.
[2018-07-12] MEDS: RANITIDINE 150 MG TAB PO SCH ×2 (08:36→20:57)
[2018-07-12] MEDS: HEPARIN 5,000 UNIT/1 ML VIAL SC SCH ×2 (08:36→21:04)
[2018-07-12] MEDS: DOCUSATE SODIUM 100 MG CAP PO SCH ×2 (08:36→20:57)
[2018-07-12] MEDS: FLUTICASONE 0.05% 16 GM NAS SPRAY NASAL SCH ×2 (08:36→20:56)
[2018-07-12] MEDS: METHADONE 10 MG TAB PO SCH ×2 (08:40→20:57)
[2018-07-12] MEDS: BUPROPION (SR) 150 MG TAB PO SCH ×3 (08:43→17:58)
[2018-07-12] MEDS: HYDROmorphONE 2 MG TAB PO PRN ×2 (12:22→18:00)
--- NOTE | 2018-07-12 12:42 | PN ---
Date/Time of Note Date/Time of Note DATE: 07/12/18 TIME: 12:40 Assessment/Plan VTE Pro[place]axis [place] [facility] [place]: 3 [place] [facility] [place] SCD contraindicated: bilateral LE trauma Pharmacological prophylaxis: heparin Lines/Catheters IV Catheter Type (from [facility]): Saline Lock Urinary Cath still in place: No Assessment/Plan Problems: (1) S/P ankle fusion Status: Acute Comment: Covering without evidence of untoward event (2) Sickle cell anemia Status: Chronic Comment: Stable Qualifiers: Sickle-cell associated disorders: without crisis Qualified Codes: D57.1 - Sickle-cell disease without crisis (3) Chronic kidney disease, stage II (mild) Status: Chronic Comment: Holding steady (4) Chronic pain syndrome Status: Chronic Comment: Adequate control under the current regimen Subjective 24 Hr Interval Summary Free Text/Dictation Patient reports that in general he is doing okay although he does have some swelling on the operated foot Constitutional: no complaints (No fevers chills or sweats) Respiratory: no complaints Cardiovascular: no complaints Gastrointestinal: no complaints Exam/Review of Systems Vital Signs Vitals Vital Signs Date Temp Pulse Resp B/P (MAP) Pulse Ox O2 O2 Flow FiO2 Time Delivery Rate 07/12/18 97.9 78 18 140/75 93 Room Air 07:00 (96) Intake and Output 07/11/18 07/11/18 07/12/18 1515:00 23:00 07:00 IntakeIntake Total 800 ml 1200 ml 600 ml OutputOutput Total 840 ml 1000 ml BalanceBalance 800 ml 360 ml -400 ml Exam Constitutional: alert, oriented Respiratory: clear to auscultation, normal air movement Cardiovascular: regular rate and rhythm, nl pulses Gastrointestinal: soft, nl liver, spleen, non-tender Extremities: other (No visible changes) SOHEILA ALEJANDRE MD Jul 12, 2018 12:42
[2018-07-12 14:00] VITALS: BP 140/80; PULSE 91; RESP 18
--- NOTE | 2018-07-12 18:05 | NUR ---
EOSS-Patient doing well. Pain intermittent to right foot radiates to mid ankle area. On scheduled methadone, requesting prn diludid po/iv in addition. Dilaudid IV only given once. Up to chair and dangled today with PT, tolerated well. Feels throbbing sensation in right foot when dangled, so reinforced need to elevate RLE on pillows as much as possible. No drainage noted from right foot. Continue to monitor.
[2018-07-12 20:00] VITALS: BP 149/76; PULSE 84; RESP 18
[2018-07-12] MEDS: SENNA TAB PO SCH (21:00)
[2018-07-13 02:00] VITALS: BP 135/75; PULSE 73; RESP 18
[2018-07-13] MEDS: HYDROmorphONE 2 MG/ML SYG IV PRN ×4 (02:10→22:53)
--- NOTE | 2018-07-13 05:37 | NUR ---
EOSS Pt sleep at this time. No s/s of distress. Verbalized some relief of pain after interventions. Due meds given. Needs attended to. Kept comfortable. Safety precautions in place. Will endorse accordingly.
[2018-07-13 07:00] VITALS: BP 160/74; PULSE 90; RESP 18
--- NOTE | 2018-07-13 08:44 | NUR ---
Arrive in pt room at 0830. Observed pt mid-transfer from toilet to WC; Mod I. OT suggest that pt stay in WC for therapy for seated ADLS/WC mobility to increase UE strength/endurance. Pt decline stating he "was not feeling it today" "I am in a crisis". Report that although the pain meds are working for his RLE, they have not helped his back pain at all. Pt decline therapy at this time d/t pain/awaiting pain meds. Pt suggest that it may be better to do theraband in bed after he receives his pain meds. Edu pt that he is proficient in theraband and that theraband exercises back muscles as well. Pt state he will only focus on biceps and triceps to avoid back muscles, but cont to decline therapy at this time. It is of note, pt was scheduled to DC today. Will PU as time allows. OT exit; all questions mobile unit assistant.
--- NOTE | 2018-07-13 08:52 | PN ---
Date/Time of Note Date/Time of Note DATE: 07/13/18 TIME: 08:51 Assessment/Plan VTE Prophylaxis Risk score (from Nsg)>0 risk: 3 SCD applied (from Nsg): No (wounds) SCD contraindicated: other (wound) Pharmacological prophylaxis: heparin Lines/Catheters IV Catheter Type (from Nrsg): Saline Lock Urinary Cath still in place: No Assessment/Plan Hospital Course SUBJECTIVE: No acute episodes. Having some back pain but tolerable. OBJECTIVE: Vital signs-see below PHYSICAL EXAM: Constitutional: Pleasant -Bhutanese male not in acute distress.. Psych: nl mood/affect, no complaints Head: atraumatic, normocephalic Eyes: nl conjunctiva, nl sclera ENMT: mucosa pink and moist, nl external ears & nose Neck: non-tender, supple Respiratory: clear to auscultation, normal air movement Cardiovascular: nl pulses, regular rate and rhythm Gastrointestinal: non-tender, soft, bowel sounds active in all 4 quadrants. Musculoskeletal/extremities: Right foot w/ dressing/boot, status post fixation surgery. +Edema noted on right ankle/dorsum of foot. Nl extremities to inspection, motor strength equal bilaterally, no focal deficit. Normal pulses,no cyanosis, Neurological: Alert oriented 3,nl speech, nl strength Skin: nl turgor ASSESSMENT/PLAN: 52-year-old male with sickle cell anemia, underwent right foot podiatric surgical intervention transferred for further physical therapy. 1. Bilateral ankle deformity s/p surgical intervention 06/27/18 - s/p right tibiocalcaneal fusion with autologous bone graft and multiplane external fixator. Will need to remain in fixator for the next 2 months per podiatry.Abx per podiatry - PT on board and appreciate recommendations. 2. ALCON on CKD- stable - Baseline Cr 1.6-1.8 -Stable 3. Chronic leukocytosis. -Monitor 4. Chronic pain - Patient is on methadone as outpatient which is managed by his [facility] - On Dilaudid for breakthrough pain as well,Palliative care managing pain med ications - Well-controlled. 5. Mood disorder - Continue Wellbutrin TID 6. GERD - H2 eze 7. Sickle cell anemia -Baseline hgb 6.7-7 -stable. DVT prophylaxis: Heparin PUD prophylaxis: H2 blockers CODE STATUS: Full code Diet: Regular. Patient was seen in collaboration with Exam/Review of Systems Vital Signs Vitals Vital Signs Date Temp Pulse Resp B/P (MAP) Pulse Ox O2 O2 Flow FiO2 Time Delivery Rate 07/13/18 98.0 90 18 160/74 99 Room Air 07:00 (102) Intake and Output 07/12/18 07/12/18 07/13/18 1515:00 23:00 07:00 IntakeIntake Total 1600 ml OutputOutput Total 525 ml 1600 ml 300 ml BalanceBalance -525 ml 0 ml -300 ml MORA BETH NP Jul 13, 2018 08:52
[2018-07-13] MEDS: RANITIDINE 150 MG TAB PO SCH ×2 (08:58→20:36)
[2018-07-13] MEDS: FLUTICASONE 0.05% 16 GM NAS SPRAY NASAL SCH ×2 (08:58→20:36)
[2018-07-13] MEDS: DOCUSATE SODIUM 100 MG CAP PO SCH ×2 (08:59→20:36)
[2018-07-13] MEDS: METHADONE 10 MG TAB PO SCH ×2 (08:59→20:38)
--- NOTE | 2018-07-13 09:00 | NUR ---
This morning patient stated he felt like he was starting to have a sickle cell crisis, as his back was very painful starting last night. Ayesha PERRY was notified and came to see him. He told her that he didn't say that.
[2018-07-13] MEDS: HEPARIN 5,000 UNIT/1 ML VIAL SC SCH ×2 (09:01→20:41)
[2018-07-13] MEDS: BUPROPION (SR) 150 MG TAB PO SCH ×3 (09:02→17:45)
[2018-07-13] MEDS: HYDROmorphONE 2 MG TAB PO PRN ×2 (11:12→17:45)
--- NOTE | 2018-07-13 11:59 | PN ---
Date/Time of Note Date/Time of Note DATE: 07/13/18 TIME: 11:58 Subjective Reports back pain Objective Vital Signs Date Temp Pulse Resp B/P (MAP) Pulse Ox O2 O2 Flow FiO2 Time Delivery Rate 07/13/18 98.0 90 18 160/74 99 Room Air 07:00 (102) Intake and Output 07/12/18 07/12/18 07/13/18 1414:59 22:59 06:59 IntakeIntake Total 1600 ml OutputOutput Total 525 ml 1600 ml 300 ml BalanceBalance -525 ml 0 ml -300 ml Exam INTERDISCIPLINARY TEAM CONFERENCE EXAM PULM-cta ABD-soft BOWEL- Cont BLADDER-Cont SKIN- no drainage OT- DRESSING-sba BATHING-sba TOILETING-sba PT- BED MOBILITY-sba TRANSFERS-sba Wheelchair mobility- sba A/P- Interdisciplinary team conference held today. Please see interdisciplinary sheet . Working toward d.cAdiel on 07/15 with post discharge follow up of physical therapy, occupational therapy. Results/Medications Medications Current Medications Docusate Sodium (Colace) 100 mg BID PO Last administered on 07/13/18at 08:59; Admin Dose 100 MG; Start 07/01/18 at 21:00 Senna (Senokot) 1 tab HS PO Last administered on 07/02/18at 20:20; Admin Dose 1 TAB; Start 07/01/18 at 21:00 Magnesium Hydroxide (Milk Of Mag) 30 ml BID PRN PO CONSTIPATION; Start 07/01/18 at 13:00 Lactulose (Enulose) 20 gm DAILY PRN PO CONSTIPATION; Start 07/01/18 at 13:00 Bisacodyl (Dulcolax Supp) 10 mg DAILY PRN [place] CONSTIPATION; Start 07/01/18 at 13:00 Acetaminophen (Tylenol Tab) 650 mg Q4H PRN PO PAIN; Start 07/01/18 at 13:00 Miscellaneous Information (Pending [facility] Order For Wound Care) This patient wong... PRN PRN XX wound; Start 07/01/18 at 13:00 Bisacodyl (Dulcolax) 5 mg BID PRN PO CONSTIPATION; Start 07/01/18 at 13:30 Clonidine (Catapres) 0.1 mg Q6H PRN PO HTN; Start 07/01/18 at 13:30 Fluticasone Propionate (Flonase 0.05% Nasal) 1 spray BID NASAL Last administered on 07/13/18 08:58; Admin Dose 1 SPRAY; Start 07/01/18 at 21:00 Methadone HCl (Methadone) 50 mg BID PO Last administered on 07/13/18 08:59; Admin Dose 50 MG; Start 07/01/18 at 21:00 Ranitidine HCl (Zantac) 150 mg BID PO Last administered on 07/13/18 08:58; Admin Dose 150 MG; Start 07/01/18 at 21:00 Simethicone (Mylicon) 160 mg Q6H PRN PO ACID Reflux; Start 07/01/18 at 13:30 Heparin Sodium (Porcine) (Heparin (5000 Units/1ml)) 5,000 unit BID SC Last administered on 07/13/18 09:01; Admin Dose 5,000 UNIT; Start 07/02/18 at 21:00 Hydromorphone HCl (Dilaudid) 3 mg Q4H PRN IV SEVERE PAIN LEVEL 7-10 Last administered on 07/13/18 06:38; Admin Dose 3 MG; Start 07/11/18 at 16:10 Hydromorphone HCl (Dilaudid) 4 mg Q4H PRN PO SEVERE PAIN LEVEL 7-10 Last administered on 07/13/18 11:12; Admin Dose 4 MG; Start 07/11/18 at 16:00 Bupropion HCl (Wellbutrin Sr) 150 mg TID@0900,1200,1800 PO Last administered on 07/13/18 09:02; Admin Dose 150 MG; Start 07/11/18 at 18:30 FREDERIC SILVA MD Jul 13, 2018 11:59
[2018-07-13] MEDS: LIDOCAINE 5% PATCH TD SCH (12:15)
[2018-07-13 14:36] VITALS: BP 156/67; PULSE 93; RESP 20
--- NOTE | 2018-07-13 18:33 | NUR ---
Patient is resting in bed without complaint. Medicated through the day for pain with fair results. States his back is still hurting but is tolerable. His stay was extended until Friday due to reliance on iv dilaudid. He did try to only take the PO today, but did take the IV once. Call light in reach, patient refuses bed alarm. Instructed on need and safety concerns, ward service supervisor is aware.
[2018-07-13 20:00] VITALS: BP 145/77; PULSE 78; RESP 18
[2018-07-13] MEDS: SENNA TAB PO SCH (20:39)
[2018-07-14 02:00] VITALS: BP 128/60; PULSE 70; RESP 18
[2018-07-14] MEDS: HYDROmorphONE 2 MG TAB PO PRN ×3 (03:34→18:43)
--- NOTE | 2018-07-14 05:35 | NUR ---
EOSS Pt sleep at this time. No s/s of distress. Verbalized some relief of pain after interventions. Due meds given. Needs attended to. Kept comfortable. Safety precautions in place. Encouraged to call for help whenever needed. Will endorse accordingly.
[2018-07-14] MEDS: HYDROmorphONE 2 MG/ML SYG IV PRN ×3 (06:26→23:47)
[2018-07-14 07:25] VITALS: BP 143/67; PULSE 73; RESP 20
[2018-07-14] MEDS: RANITIDINE 150 MG TAB PO SCH ×2 (08:18→20:04)
[2018-07-14] MEDS: METHADONE 10 MG TAB PO SCH ×2 (08:19→20:05)
[2018-07-14] MEDS: DOCUSATE SODIUM 100 MG CAP PO SCH ×2 (08:19→20:04)
[2018-07-14] MEDS: FLUTICASONE 0.05% 16 GM NAS SPRAY NASAL SCH ×2 (08:19→20:05)
[2018-07-14] MEDS: LIDOCAINE 5% PATCH TD SCH (08:25)
[2018-07-14] MEDS: HEPARIN 5,000 UNIT/1 ML VIAL SC SCH ×2 (08:25→20:12)
[2018-07-14] MEDS: BUPROPION (SR) 150 MG TAB PO SCH ×3 (08:25→18:42)
--- NOTE | 2018-07-14 09:43 | PN ---
Date/Time of Note Date/Time of Note DATE: 07/14/18 TIME: 09:42 Subjective Comfortable Objective Vital Signs Date Temp Pulse Resp B/P (MAP) Pulse Ox O2 O2 Flow FiO2 Time Delivery Rate 07/14/18 98.0 73 20 143/67 96 Room Air 07:25 (92) Intake and Output 07/13/18 07/13/18 07/14/18 1414:59 22:59 06:59 OutputOutput Total 800 ml 900 ml BalanceBalance -800 ml -900 ml Exam pulm-cta abd-soft s transfer and wheelchair mobility Results/Medications Medications Current Medications Docusate Sodium (Colace) 100 mg BID PO Last administered on 07/14/18at 08:19; Admin Dose 100 MG; Start 07/01/18 at 21:00 Senna (Senokot) 1 tab HS PO Last administered on 07/02/18at 20:20; Admin Dose 1 TAB; Start 07/01/18 at 21:00 Magnesium Hydroxide (Milk Of Mag) 30 ml BID PRN PO CONSTIPATION; Start 07/01/18 at 13:00 Lactulose (Enulose) 20 gm DAILY PRN PO CONSTIPATION; Start 07/01/18 at 13:00 Bisacodyl (Dulcolax Supp) 10 mg DAILY PRN [place] CONSTIPATION; Start 07/01/18 at 13:00 Acetaminophen (Tylenol Tab) 650 mg Q4H PRN PO PAIN; Start 07/01/18 at 13:00 Miscellaneous Information (Pending [facility] Order For Wound Care) This patient wong... PRN PRN XX wound; Start 07/01/18 at 13:00 Bisacodyl (Dulcolax) 5 mg BID PRN PO CONSTIPATION; Start 07/01/18 at 13:30 Clonidine (Catapres) 0.1 mg Q6H PRN PO HTN; Start 07/01/18 at 13:30 Fluticasone Propionate (Flonase 0.05% Nasal) 1 spray BID NASAL Last administered on 07/14/18at 08:19; Admin Dose 1 SPRAY; Start 07/01/18 at 21:00 Methadone HCl (Methadone) 50 mg BID PO Last administered on 07/14/18at 08:19; Admin Dose 50 MG; Start 07/01/18 at 21:00 Ranitidine HCl (Zantac) 150 mg BID PO Last administered on 07/14/18 08:18; Admin Dose 150 MG; Start 07/01/18 at 21:00 Simethicone (Mylicon) 160 mg Q6H PRN PO ACID Reflux; Start 07/01/18 at 13:30 Heparin Sodium (Porcine) (Heparin (5000 Units/1ml)) 5,000 unit BID SC Last administered on 07/14/18 08:25; Admin Dose 5,000 UNIT; Start 07/02/18 at 21:00 Hydromorphone HCl (Dilaudid) 4 mg Q4H PRN PO SEVERE PAIN LEVEL 7-10 Last administered on 07/14/18at 03:34; Admin Dose 4 MG; Start 07/11/18 at 16:00 Bupropion HCl (Wellbutrin Sr) 150 mg TID@0900,1200,1800 PO Last administered on 07/14/18 08:25; Admin Dose 150 MG; Start 07/11/18 at 18:30 Lidocaine (Lidoderm) 1 patch DAILY TD Last administered on 07/14/18at 08:25; Admin Dose 1 PATCH; Start 07/13/18 at 12:00 Hydromorphone HCl (Dilaudid) 2 mg Q4H PRN IV SEVERE PAIN LEVEL 7-10; Start 07/14/18 at 10:00 Assessment/Plan Additional Assessment/Plan Rehab- Polyarthritis/joint derangement due to sickle cell anemia, status post right tibial calcaneal fusion with external fixator. Continue rehab. reviewed with IM LENS MOLDER Acute on chronic pain syndrome- slow transition to oral pain meds GI- results with bowel program Sickle cell anemia. Chronic kidney disease. Colitis. Mood disorder. FREDERIC SILVA MD Jul 14, 2018 09:43
--- NOTE | 2018-07-14 10:10 | PN ---
Date/Time of Note Date/Time of Note DATE: 07/14/18 TIME: 10:09 Assessment/Plan VTE Prophylaxis Risk score (from Nsg)>0 risk: 4 SCD applied (from Nsg): Yes SCD contraindicated: other (WOUND) Pharmacological prophylaxis: heparin Lines/Catheters IV Catheter Type (from Nrsg): Saline Lock Urinary Cath still in place: No Assessment/Plan Hospital Course SUBJECTIVE: No acute episodes. OBJECTIVE: Vital signs-see below PHYSICAL EXAM: Constitutional: Pleasant -Italian male not in acute distress.. Psych: nl mood/affect, no complaints Head: atraumatic, normocephalic Eyes: nl conjunctiva, nl sclera ENMT: mucosa pink and moist, nl external ears & nose Neck: non-tender, supple Respiratory: clear to auscultation, normal air movement Cardiovascular: nl pulses, regular rate and rhythm Gastrointestinal: non-tender, soft, bowel sounds active in all 4 quadrants. Musculoskeletal/extremities: Right foot w/ dressing/boot, status post fixation surgery. +Edema noted on right ankle/dorsum of foot. Nl extremities to inspection, motor strength equal bilaterally, no focal deficit. Normal pulses,no cyanosis, Neurological: Alert oriented 3,nl speech, nl strength Skin: nl turgor ASSESSMENT/PLAN: 52-year-old male with sickle cell anemia, underwent right foot podiatric surgical intervention transferred for further physical therapy. 1. Bilateral ankle deformity s/p surgical intervention 06/27/18 - s/p right tibiocalcaneal fusion with autologous bone graft and multiplane external fixator. Will need to remain in fixator for the next 2 months per podiatry.Abx per podiatry - PT on board and appreciate recommendations. 2. ALCON on CKD- stable - Baseline Cr 1.6-1.8 -Stable 3. Chronic leukocytosis. -Monitor 4. Chronic pain - Patient is on methadone as outpatient which is managed by his Janitor - On Dilaudid for breakthrough pain as well,Palliative care managing pain medications - Well-controlled. 5. Mood disorder - Continue Wellbutrin TID 6. GERD - H2 eze 7. Sickle cell anemia -Baseline hgb 6.7-7 -stable. DVT prophylaxis: Heparin PUD prophylaxis: H2 blockers CODE STATUS: Full code Diet: Regular. Patient was seen in collaboration with Exam/Review of Systems Vital Signs Vitals Vital Signs Date Temp Pulse Resp B/P (MAP) Pulse Ox O2 O2 Flow FiO2 Time Delivery Rate 07/14/18 98.0 73 20 143/67 96 Room Air 07:25 (92) Intake and Output 07/13/18 07/13/18 07/14/18 1515:00 23:00 07:00 OutputOutput Total 800 ml 900 ml BalanceBalance -800 ml -900 ml Medications Medications Current Medications Docusate Sodium (Colace) 100 mg BID PO Last administered on 07/14/18at 08:19; Admin Dose 100 MG; Start 07/01/18 at 21:00 Senna (Senokot) 1 tab HS PO Last administered on 07/02/18at 20:20; Admin Dose 1 TAB; Start 07/01/18 at 21:00 Magnesium Hydroxide (Milk Of Mag) 30 ml BID PRN PO CONSTIPATION; Start 07/01/18 at 13:00 Lactulose (Enulose) 20 gm DAILY PRN PO CONSTIPATION; Start 07/01/18 at 13:00 Bisacodyl (Dulcolax Supp) 10 mg DAILY PRN [place] CONSTIPATION; Start 07/01/18 at 13:00 Acetaminophen (Tylenol Tab) 650 mg Q4H PRN PO PAIN; Start 07/01/18 at 13:00 Miscellaneous Information (Pending [facility] Order For Wound Care) This patient h a... PRN PRN XX wound; Start 07/01/18 at 13:00 Bisacodyl (Dulcolax) 5 mg BID PRN PO CONSTIPATION; Start 07/01/18 at 13:30 Clonidine (Catapres) 0.1 mg Q6H PRN PO HTN; Start 07/01/18 at 13:30 Fluticasone Propionate (Flonase 0.05% Nasal) 1 spray BID NASAL Last administered on 07/14/18at 08:19; Admin Dose 1 SPRAY; Start 07/01/18 at 21:00 Methadone HCl (Methadone) 50 mg BID PO Last administered on 07/14/18at 08:19; Admin Dose 50 MG; Start 07/01/18 at 21:00 Ranitidine HCl (Zantac) 150 mg BID PO Last administered on 07/14/18at 08:18; Admin Dose 150 MG; Start 07/01/18 at 21:00 Simethicone (Mylicon) 160 mg Q6H PRN PO ACID Reflux; Start 07/01/18 at 13:30 Heparin Sodium (Porcine) (Heparin (5000 Units/1ml)) 5,000 unit BID SC Last administered on 07/14/18at 08:25; Admin Dose 5,000 UNIT; Start 07/02/18 at 21:00 Hydromorphone HCl (Dilaudid) 4 mg Q4H PRN PO SEVERE PAIN LEVEL 7-10 Last administered on 07/14/18at 03:34; Admin Dose 4 MG; Start 07/11/18 at 16:00 Bupropion HCl (Wellbutrin Sr) 150 mg TID@0900,1200,1800 PO Last administered on 07/14/18at 08:25; Admin Dose 150 MG; Start 07/11/18 at 18:30 Lidocaine (Lidoderm) 1 patch DAILY TD Last administered on 07/14/18at 08:25; Admin Dose 1 PATCH; Start 07/13/18 at 12:00 Hydromorphone HCl (Dilaudid) 2 mg Q4H PRN IV SEVERE PAIN LEVEL 7-10; Start 07/14/18 at 10:00 MORA BETH NP Jul 14, 2018 10:10
[2018-07-14 14:15] VITALS: BP 140/62; RESP 20
--- NOTE | 2018-07-14 18:20 | NUR ---
Patient remains in stable condition. Medicated through the day for pain as needed. Dilaudid IV decreased per MD order with agreement of patient. All due medications given, he is sitting in WC at this time, and instructed to call for needs.
[2018-07-14] MEDS: SENNA TAB PO SCH (20:12)
[2018-07-14 20:17] VITALS: BP 150/81; PULSE 89; RESP 18
[2018-07-15 01:04] VITALS: BP 132/75; PULSE 88; RESP 18
[2018-07-15] MEDS: HYDROmorphONE 2 MG TAB PO PRN ×2 (04:18→12:19)
--- NOTE | 2018-07-15 04:58 | NUR ---
Patient A/O x4, in stable condition. Medicated through the night for right foot surgical site pain as needed with Dilaudid IV and PO All needs attended. Voids without difficulty. Patient refused senokot. he is sitting in WC at this time, and instructed to call for needs. Continues to refuse bed alarm.
[2018-07-15] MEDS: HYDROmorphONE 2 MG/ML SYG IV PRN ×2 (06:35→17:07)
--- NOTE | 2018-07-15 08:47 | CONS ---
Date/Time of Note Date/Time of Note DATE: 07/15/18 TIME: 08:45 Assessment/Plan Assessment/Plan Additional Assessment/Plan Plan continue with current methadone 50 mg twice daily which was prescribed as an outpatient Continue with current both p.o. and IV Dilaudid as needed moderate or severe pain Patient being prepped for possible discharge today or tomorrow Consultation Date/Type/Reason Admit Date/Time Jul 01, 2018 at 12:50 Initial Consult Date 24 HR Interval Summary Free Text/Dictation Additional Assessment/Plan Sickle cell disease No recent history of crisis Past medical history of acute lung syndrome Opioid tolerance Vision has a welfare director is following him closely as an outpatient And is prescribing his methadone Have continued his methadone and 50 mg p.o. twice daily plus breakthrough Dilaudid 4 mg IV every 4 as needed Exam/Review of Systems Vital Signs Vitals Vital Signs Date Temp Pulse Resp B/P (MAP) Pulse Ox O2 O2 Flow FiO2 Time Delivery Rate 07/15/18 97.9 88 18 132/75 98 Room Air 01:04 (94) Intake and Output 07/14/18 07/14/18 07/15/18 1515:00 23:00 07:00 IntakeIntake Total 500 ml 300 ml 500 ml OutputOutput Total 920 ml 450 ml 800 ml BalanceBalance -420 ml -150 ml -300 ml Exam Constitutional: alert, oriented, well developed Psych: anxiety Neurological: CLERK SPECIALIST II-XII intact, nl mental status, nl speech, nl strength; No confused, No DTR's symmetric, No focal weakness, No lethargic, No numbness, No reflexes, No unresponsive, No other Medications Medications Current Medications Docusate Sodium (Colace) 100 mg BID PO Last administered on 07/14/18at 20:04; Admin Dose 100 MG; Start 07/01/18 at 21:00 Senna (Senokot) 1 tab HS PO Last administered on 07/02/18at 20:20; Admin Dose 1 TAB; Start 07/01/18 at 21:00 Magnesium Hydroxide (Milk Of Mag) 30 ml BID PRN PO CONSTIPATION; Start 07/01/18 at 13:00 Lactulose (Enulose) 20 gm DAILY PRN PO CONSTIPATION; Start 07/01/18 at 13:00 Bisacodyl (Dulcolax Supp) 10 mg DAILY PRN [place] CONSTIPATION; Start 07/01/18 at 13:00 Acetaminophen (Tylenol Tab) 650 mg Q4H PRN PO PAIN; Start 07/01/18 at 13:00 Miscellaneous Information (Pending [facility] Order For Wound Care) This patient wong... PRN PRN XX wound; Start 07/01/18 at 13:00 Bisacodyl (Dulcolax) 5 mg BID PRN PO CONSTIPATION; Start 07/01/18 at 13:30 Clonidine (Catapres) 0.1 mg Q6H PRN PO HTN; Start 07/01/18 at 13:30 Fluticasone Propionate (Flonase 0.05% Nasal) 1 spray BID NASAL Last administered on 07/14/18 20:05; Admin Dose 1 SPRAY; Start 07/01/18 at 21:00 Methadone HCl (Methadone) 50 mg BID PO Last administered on 07/14/18 20:05; Admin Dose 50 MG; Start 07/01/18 at 21:00 Ranitidine HCl (Zantac) 150 mg BID PO Last administered on 07/14/18 20:04; Admin Dose 150 MG; Start 07/01/18 at 21:00 Simethicone (Mylicon) 160 mg Q6H PRN PO ACID Reflux; Start 07/01/18 at 13:30 Heparin Sodium (Porcine) (Heparin (5000 Units/1ml)) 5,000 unit BID SC Last administered on 07/14/18at 20:12; Admin Dose 5,000 UNIT; Start 07/02/18 at 21:00 Hydromorphone HCl (Dilaudid) 4 mg Q4H PRN PO SEVERE PAIN LEVEL 7-10 Last administered on 07/15/18 04:18; Admin Dose 4 MG; Start 07/11/18 at 16:00 Bupropion HCl (Wellbutrin Sr) 150 mg TID@0900,1200,1800 PO Last administered on 07/14/18 18:42; Admin Dose 150 MG; Start 07/11/18 at 18:30 Lidocaine (Lidoderm) 1 patch DAILY TD Last administered on 07/14/18 08:25; Admin Dose 1 PATCH; Start 07/13/18 at 12:00 Hydromorphone HCl (Dilaudid) 2 mg Q4H PRN IV SEVERE PAIN LEVEL 7-10 Last administered on 12/26/18at 06:35; Admin Dose 2 MG; Start 07/14/18 at 10:00 PETROS LÓPEZ Jul 15, 2018 08:47
[2018-07-15] MEDS: FLUTICASONE 0.05% 16 GM NAS SPRAY NASAL SCH ×2 (09:04→20:45)
[2018-07-15] MEDS: DOCUSATE SODIUM 100 MG CAP PO SCH ×2 (09:05→20:45)
[2018-07-15] MEDS: RANITIDINE 150 MG TAB PO SCH ×2 (09:05→20:45)
[2018-07-15] MEDS: LIDOCAINE 5% PATCH TD SCH (09:05)
[2018-07-15 09:06] VITALS: BP 151/79; PULSE 92; RESP 19
[2018-07-15] MEDS: METHADONE 10 MG TAB PO SCH ×2 (09:06→20:46)
[2018-07-15] MEDS: BUPROPION (SR) 150 MG TAB PO SCH ×3 (09:10→17:06)
[2018-07-15] MEDS: HEPARIN 5,000 UNIT/1 ML VIAL SC SCH ×2 (09:10→20:54)
--- NOTE | 2018-07-15 09:48 | NUR ---
SOCIAL WORK NOTE: This continuity writer discussed discharge plans, on 07/13 after team conference this social worker clinical discussed the need for a ramp as pt ambulates w/ a wheelchair and has 3 stairs to enter his home and is Non weight bearing on Left leg and Partial on left leg. Patient states that he does not have the finances to pay for a ramp, this continuity writer still provided ramp resources and encouraged pt to utilize family to assist. Patient was adamant that he can not afford a ramp as he already paid to upgrade the commode to a bariatric commode and also paid for an extension for a hospital bed, which was delivered to his home by [employer] [place] [phone]. Since last week 07/07 this social worker clinical provided ramp resources and discussed the need for a ramp, pt continuously mentioned that he will look into it but does not think he can afford it. This social worker clinical assisted pt in calling 3 different companies and quotes were given; however pt states that he could not pay. This continuity writer discussed going to a SNF, pt refused and then agreed, pt was accepted by [facility]; however then refused, plan for pt to d/c home on 07/17 as per [employer].
--- NOTE | 2018-07-15 10:08 | PN ---
Date/Time of Note Date/Time of Note DATE: 07/15/18 TIME: 10:07 Subjective Patient reprts pain under good control. He is tolerating the gradual transition to oral pain meds Objective Vital Signs Date Temp Pulse Resp B/P (MAP) Pulse Ox O2 O2 Flow FiO2 Time Delivery Rate 07/15/18 97.9 88 18 132/75 98 Room Air 01:04 (94) Intake and Output 07/14/18 07/14/18 07/15/18 1515:00 23:00 07:00 IntakeIntake Total 500 ml 300 ml 500 ml OutputOutput Total 920 ml 450 ml 800 ml BalanceBalance -420 ml -150 ml -300 ml Exam pulm-cta abd-soft sba transfer and wheelchair mobility Results/Medications Medications Current Medications Docusate Sodium (Colace) 100 mg BID PO Last administered on 07/15/18at 09:05; Admin Dose 100 MG; Start 07/01/18 at 21:00 Senna (Senokot) 1 tab HS PO Last administered on 07/02/18at 20:20; Admin Dose 1 TAB; Start 07/01/18 at 21:00 Magnesium Hydroxide (Milk Of Mag) 30 ml BID PRN PO CONSTIPATION; Start 07/01/18 at 13:00 Lactulose (Enulose) 20 gm DAILY PRN PO CONSTIPATION; Start 07/01/18 at 13:00 Bisacodyl (Dulcolax Supp) 10 mg DAILY PRN [place] CONSTIPATION; Start 07/01/18 at 13:00 Acetaminophen (Tylenol Tab) 650 mg Q4H PRN PO PAIN; Start 07/01/18 at 13:00 Miscellaneous Information (Pending [facility] Order For Wound Care) This patient wong... PRN PRN XX wound; Start 07/01/18 at 13:00 Bisacodyl (Dulcolax) 5 mg BID PRN PO CONSTIPATION; Start 07/01/18 at 13:30 Clonidine (Catapres) 0.1 mg Q6H PRN PO HTN; Start 07/01/18 at 13:30 Fluticasone Propionate (Flonase 0.05% Nasal) 1 spray BID NASAL Last administered on 07/15/18at 09:04; Admin Dose 1 SPRAY; Start 07/01/18 at 21:00 Methadone HCl (Methadone) 50 mg BID PO Last administered on 07/15/18 09:06; Admin Dose 50 MG; Start 07/01/18 at 21:00 Ranitidine HCl (Zantac) 150 mg BID PO Last administered on 07/15/18 09:05; Admin Dose 150 MG; Start 07/01/18 at 21:00 Simethicone (Mylicon) 160 mg Q6H PRN PO ACID Reflux; Start 07/01/18 at 13:30 Heparin Sodium (Porcine) (Heparin (5000 Units/1ml)) 5,000 unit BID SC Last administered on 07/15/18 09:10; Admin Dose 5,000 UNIT; Start 07/02/18 at 21:00 Hydromorphone HCl (Dilaudid) 4 mg Q4H PRN PO SEVERE PAIN LEVEL 7-10 Last administered on 07/15/18 04:18; Admin Dose 4 MG; Start 07/11/18 at 16:00 Bupropion HCl (Wellbutrin Sr) 150 mg TID@0900,1200,1800 PO Last administered on 07/15/18 09:10; Admin Dose 150 MG; Start 07/11/18 at 18:30 Lidocaine (Lidoderm) 1 patch DAILY TD Last administered on 07/15/18 09:05; Admin Dose 1 PATCH; Start 07/13/18 at 12:00 Hydromorphone HCl (Dilaudid) 2 mg Q4H PRN IV SEVERE PAIN LEVEL 7-10 Last administered on 07/15/18 06:35; Admin Dose 2 MG; Start 07/14/18 at 10:00 Assessment/Plan Additional Assessment/Plan Rehab- Polyarthritis/joint derangement due to sickle cell anemia, status post right tibial calcaneal fusion with external fixator. Continue rehab, with anticipated dc 07/17 Acute on chronic pain syndrome- slow transition to oral pain meds GI- results with bowel program Sickle cell anemia. Chronic kidney disease. Colitis. Mood disorder. FREDERIC SILVA MD Jul 15, 2018 10:08
--- NOTE | 2018-07-15 12:12 | PN ---
Date/Time of Note Date/Time of Note DATE: 07/15/18 TIME: 12:11 Assessment/Plan VTE Prophylaxis Risk score (from Nsg)>0 risk: 12 SCD applied (from Ns): No SCD contraindicated: other (wound) Pharmacological prophylaxis: heparin Lines/Catheters IV Catheter Type (from Nrs): Saline Lock Urinary Cath still in place: No Assessment/Plan Hospital Course SUBJECTIVE: No acute episodes. Participating with physical therapy. OBJECTIVE: Vital signs-see below PHYSICAL EXAM: Constitutional: Pleasant -[place] Islander male not in acute distress.. Psych: nl mood/affect, no complaints Head: atraumatic, normocephalic Eyes: nl conjunctiva, nl sclera ENMT: mucosa pink and moist, nl external ears & nose Neck: non-tender, supple Respiratory: clear to auscultation, normal air movement Cardiovascular: nl pulses, regular rate and rhythm Gastrointestinal: non-tender, soft, bowel sounds active in all 4 quadrants. Musculoskeletal/extremities: Right foot w/ dressing/boot, status post fixation surgery. +Edema noted on right ankle/dorsum of foot. Nl extremities to inspection, motor strength equal bilaterally, no focal deficit. Normal pulses,no cyanosis, Neurological: Alert oriented 3,nl speech, nl strength Skin: nl turgor ASSESSMENT/PLAN: 52-year-old male with sickle cell anemia, underwent right foot podiatric surgical intervention transferred for further physical therapy. 1. Bilateral ankle deformity s/p surgical intervention 06/27/18 - s/p right tibiocalcaneal fusion with autologous bone graft and multiplane external fixator. Will need to remain in fixator for the next 2 months per podiatry.Abx per podiatry - PT on board and appreciate recommendations. 2. ALCON on CKD- stable - Baseline Cr 1.6-1.8 -Stable 3. Chronic leukocytosis. -Monitor 4. Chronic pain - Patient is on methadone as outpatient which is managed by his Automotive Service Advisor - On Dilaudid for breakthrough pain as well,Palliative care managing pain medications - Well-controlled. 5. Mood disorder - Continue Wellbutrin TID 6. GERD - H2 eze 7. Sickle cell anemia -Baseline hgb 6.7-7 -stable. DVT prophylaxis: Heparin PUD prophylaxis: H2 blockers CODE STATUS: Full code Diet: Regular. Patient was seen in collaboration with DR.SARAVANAN Exam/Review of Systems Vital Signs Vitals Vital Signs Date Temp Pulse Resp B/P (MAP) Pulse Ox O2 O2 Flow FiO2 Time Delivery Rate 07/15/18 98.3 92 19 151/79 95 Room Air 09:06 (103) Intake and Output 07/14/18 07/14/18 07/15/18 1515:00 23:00 07:00 IntakeIntake Total 500 ml 300 ml 500 ml OutputOutput Total 920 ml 450 ml 800 ml BalanceBalance -420 ml -150 ml -300 ml Medications Medications Current Medications Docusate Sodium (Colace) 100 mg BID PO Last administered on 07/15/18at 09:05; Admin Dose 100 MG; Start 07/01/18 at 21:00 Senna (Senokot) 1 tab HS PO Last administered on 07/02/18at 20:20; Admin Dose 1 TAB; Start 07/01/18 at 21:00 Magnesium Hydroxide (Milk Of Mag) 30 ml BID PRN PO CONSTIPATION; Start 07/01/18 at 13:00 Lactulose (Enulose) 20 gm DAILY PRN PO CONSTIPATION; Start 07/01/18 at 13:00 Bisacodyl (Dulcolax Supp) 10 mg DAILY PRN [place] CONSTIPATION; Start 07/01/18 at 13:00 Acetaminophen (Tylenol Tab) 650 mg Q4H PRN PO PAIN; Start 07/01/18 at 13:00 Miscellaneous Information (Pending [facility] Order For Wound Care) This patient wong... PRN PRN XX wound; Start 07/01/18 at 13:00 Bisacodyl (Dulcolax) 5 mg BID PRN PO CONSTIPATION; Start 07/01/18 at 13:30 Clonidine (Catapres) 0.1 mg Q6H PRN PO HTN; Start 07/01/18 at 13:30 Fluticasone Propionate (Flonase 0.05% Nasal) 1 spray BID NASAL Last administered on 07/15/18at 09:04; Admin Dose 1 SPRAY; Start 07/01/18 at 21:00 Methadone HCl (Methadone) 50 mg BID PO Last administered on 07/15/18at 09:06; Admin Dose 50 MG; Start 07/01/18 at 21:00 Ranitidine HCl (Zantac) 150 mg BID PO Last administered on 07/15/18at 09:05; Admin Dose 150 MG; Start 07/01/18 at 21:00 Simethicone (Mylicon) 160 mg Q6H PRN PO ACID Reflux; Start 07/01/18 at 13:30 Heparin Sodium (Porcine) (Heparin (5000 Units/1ml)) 5,000 unit BID SC Last administered on 07/15/18at 09:10; Admin Dose 5,000 UNIT; Start 07/02/18 at 21:00 Hydromorphone HCl (Dilaudid) 4 mg Q4H PRN PO SEVERE PAIN LEVEL 7-10 Last administered on 07/15/18at 04:18; Admin Dose 4 MG; Start 07/11/18 at 16:00 Bupropion HCl (Wellbutrin Sr) 150 mg TID@0900,1200,1800 PO Last administered on 07/15/18at 09:10; Admin Dose 150 MG; Start 07/11/18 at 18:30 Lidocaine (Lidoderm) 1 patch DAILY TD Last administered on 07/15/18at 09:05; Admin Dose 1 PATCH; Start 07/13/18 at 12:00 Hydromorphone HCl (Dilaudid) 2 mg Q4H PRN IV SEVERE PAIN LEVEL 7-10 Last admin istered on 07/15/18at 06:35; Admin Dose 2 MG; Start 07/14/18 at 10:00 MORA BETH NP Jul 15, 2018 12:12
--- NOTE | 2018-07-15 17:00 | NUR ---
Patient in bed watching TV. Alert, oriented x 4. No SOB. Complained of pain so given PRN pain medication. Relieved after 30 minutes. Offered educational materials & games for recreational activities. Kept clean & dry. All due meds given. Call light within reach. Bed alarm on & in low position. Kept comfortable.
[2018-07-15 20:00] VITALS: BP 138/76; PULSE 87; RESP 18
[2018-07-15] MEDS: SENNA TAB PO SCH (20:54)
--- NOTE | 2018-07-15 21:38 | PN ---
DATE: 07/15/2018 PSYCHOLOGY -- INDIVIDUAL SESSION -- [id number] This is a followup on a patient who was seen last week. The patient is feeling better overall. The patient is still very frustrated about all his medical problems. The patient was seen sitting on the side of his bed and is willing to engage in psychotherapy. The patient does see that this can be helpful in dealing with all his medical problems. The patient is being prepared for discharge on Friday. The patient did say that he is wanting to follow up in outpatient psychotherapy after discharge. I was trying to figure out a way to help arrange this for him. Dictated By: KIM HYMAN PHD RODDY/LESLEY Conf#: [id number] DID#: [id number] CC: FREDERIC SILVA MD;*EndCC* MTDD
[2018-07-16 02:00] VITALS: BP 142/74; PULSE 88; RESP 18
[2018-07-16] MEDS: HYDROmorphONE 2 MG/ML SYG IV PRN ×2 (04:28→10:22)
--- NOTE | 2018-07-16 06:48 | NUR ---
Medicated for Rt ankle pain prn with good effect. Voiding well using urinal. Needs attended. Slept well. Call light within reached. No acute distress noted.
[2018-07-16] MEDS: FLUTICASONE 0.05% 16 GM NAS SPRAY NASAL SCH ×2 (08:14→20:40)
[2018-07-16] MEDS: LIDOCAINE 5% PATCH TD SCH (08:14)
[2018-07-16] MEDS: RANITIDINE 150 MG TAB PO SCH ×2 (08:14→20:42)
[2018-07-16] MEDS: BUPROPION (SR) 150 MG TAB PO SCH ×3 (08:14→17:27)
[2018-07-16 08:15] VITALS: BP 159/88; PULSE 85; RESP 18
[2018-07-16] MEDS: DOCUSATE SODIUM 100 MG CAP PO SCH ×2 (08:15→20:40)
[2018-07-16] MEDS: METHADONE 10 MG TAB PO SCH ×2 (08:15→20:41)
[2018-07-16] MEDS: HEPARIN 5,000 UNIT/1 ML VIAL SC SCH ×2 (08:16→21:02)
[2018-07-16] MEDS: HYDROmorphONE 2 MG TAB PO PRN ×2 (12:09→17:27)
--- NOTE | 2018-07-16 14:12 | PN ---
Date/Time of Note Date/Time of Note DATE: 07/16/18 TIME: 14:11 Assessment/Plan VTE Prophylaxis Risk score (from Nsg)>0 risk: 12 SCD applied (from Ns): No SCD contraindicated: other (WOUND) Pharmacological prophylaxis: heparin Lines/Catheters IV Catheter Type (from Nrs): Saline Lock Urinary Cath still in place: No Assessment/Plan Hospital Course SUBJECTIVE: No acute episodes. Participating with physical therapy. OBJECTIVE: Vital signs-see below PHYSICAL EXAM: Constitutional: Pleasant -Qatari male not in acute distress.. Psych: nl mood/affect, no complaints Head: atraumatic, normocephalic Eyes: nl conjunctiva, nl sclera ENMT: mucosa pink and moist, nl external ears & nose Neck: non-tender, supple Respiratory: clear to auscultation, normal air movement Cardiovascular: nl pulses, regular rate and rhythm Gastrointestinal: non-tender, soft, bowel sounds active in all 4 quadrants. Musculoskeletal/extremities: Right foot w/ dressing/boot, status post fixation surgery. +Edema noted on right ankle/dorsum of foot. Nl extremities to inspection, motor strength equal bilaterally, no focal deficit. Normal pulses,no cyanosis, Neurological: Alert oriented 3,nl speech, nl strength Skin: nl turgor ASSESSMENT/PLAN: 52-year-old male with sickle cell anemia, underwent right foot podiatric surgical intervention transferred for further physical therapy. 1. Bilateral ankle deformity s/p surgical intervention 06/27/18 - s/p right tibiocalcaneal fusion with autologous bone graft and multiplane external fixator. Will need to remain in fixator for the next 2 months per podiatry.Abaleksandar per podiatry -Podiatry on board and appreciate recommendations. 2. ALCON on CKD- stable - Baseline Cr 1.6-1.8 -Stable 3. Chronic leukocytosis. -Monitor 4. Chronic pain - Patient is on methadone as outpatient which is managed by his Metal Molder - On Dilaudid for breakthrough pain as well,Palliative care managing pain medications - Well-controlled. 5. Mood disorder - Continue Wellbutrin TID 6. GERD - H2 eze 7. Sickle cell anemia -Baseline hgb 6.7-7 -stable. Agree with DC planning a.m. DVT prophylaxis: Heparin PUD prophylaxis: H2 blockers CODE STATUS: Full code Diet: Regular. Patient was seen in collaboration with Exam/Review of Systems Vital Signs Vitals Vital Signs Date Temp Pulse Resp B/P (MAP) Pulse Ox O2 O2 Flow FiO2 Time Delivery Rate 07/16/18 98.0 85 18 159/88 95 Room Air 08:15 (111) Intake and Output 07/15/18 07/15/18 07/16/18 1515:00 23:00 07:00 IntakeIntake Total 230 ml 450 ml 280 ml OutputOutput Total 250 ml 820 ml 900 ml BalanceBalance -20 ml -370 ml -620 ml Medications Medications Current Medications Docusate Sodium (Colace) 100 mg BID PO Last administered on 07/16/18at 08:15; Admin Dose 100 MG; Start 07/01/18 at 21:00 Senna (Senokot) 1 tab HS PO Last administered on 07/02/18at 20:20; Admin Dose 1 TAB; Start 07/01/18 at 21:00 Magnesium Hydroxide (Milk Of Mag) 30 ml BID PRN PO CONSTIPATION; Start 07/01/18 at 13:00 Lactulose (Enulose) 20 gm DAILY PRN PO CONSTIPATION; Start 07/01/18 at 13:00 Bisacodyl (Dulcolax Supp) 10 mg DAILY PRN [place] CONSTIPATION; Start 07/01/18 at 13:00 Acetaminophen (Tylenol Tab) 650 mg Q4H PRN PO PAIN; Start 07/01/18 at 13:00 Miscellaneous Information (Pending [facility] Order For [facility]ound Care) This patient wong... PRN PRN XX wound; Start 07/01/18 at 13:00 Bisacodyl (Dulcolax) 5 mg BID PRN PO CONSTIPATION; Start 07/01/18 at 13:30 Clonidine (Catapres) 0.1 mg Q6H PRN PO HTN; Start 07/01/18 at 13:30 Fluticasone Propionate (Flonase 0.05% Nasal) 1 spray BID NASAL Last administered on 07/16/18at 08:14; Admin Dose 1 SPRAY; Start 07/01/18 at 21:00 Methadone HCl (Methadone) 50 mg BID PO Last administered on 07/16/18at 08:15; Admin Dose 50 MG; Start 07/01/18 at 21:00 Ranitidine HCl (Zantac) 150 mg BID PO Last administered on 07/16/18 08:14; Admin Dose 150 MG; Start 07/01/18 at 21:00 Simethicone (Mylicon) 160 mg Q6H PRN PO ACID Reflux; Start 07/01/18 at 13:30 Heparin Sodium (Porcine) (Heparin (5000 Units/1ml)) 5,000 unit BID SC Last administered on 07/16/18 08:16; Admin Dose 5,000 UNIT; Start 07/02/18 at 21:00 Hydromorphone HCl (Dilaudid) 4 mg Q4H PRN PO SEVERE PAIN LEVEL 7-10 Last adm inistered on 07/16/18 12:09; Admin Dose 4 MG; Start 07/11/18 at 16:00 Bupropion HCl (Wellbutrin Sr) 150 mg TID@0900,1200,1800 PO Last administered on 07/16/18 12:08; Admin Dose 150 MG; Start 07/11/18 at 18:30 Lidocaine (Lidoderm) 1 patch DAILY TD Last administered on 07/16/18 08:14; Admin Dose 1 PATCH; Start 07/13/18 at 12:00 Hydromorphone HCl (Dilaudid) 1 mg Q4H PRN IV SEVERE PAIN LEVEL 7-10 Last administered on 07/16/18 10:22; Admin Dose 1 MG; Start 07/16/18 at 10:00 MORA BETH NP Jul 16, 2018 14:12
--- NOTE | 2018-07-16 15:50 | NUR ---
Called Dr Metz's office & spoke to Rose to inform them that patient will be discharged tomorrow. Will inform patient to schedule an appointment with MD in 1 week.
--- NOTE | 2018-07-16 16:04 | NUR ---
Per Ayesha PERRY she will not give a prescription for Dilaudid IV if patient is going to be discharged in SNF.
--- NOTE | 2018-07-16 16:22 | NUR ---
Social Work Note: Patient is due to discharge home on friday07/17/18, pt stated this morning that his uncle can not assist pt until after 5pm as he works fri-fri, pt wanted to discharge on friday instead. Pt was undecided and went back and forth b/t whether d/c home or snf. Pt was accepted to [facility] [phone]; however pt then reports he wants to go home. This board writer confirmed with Angel Farooq (pt uncle) that he will be available tomorrow after 5pm to assist pt and will be with him for 2 weeks. This director social service spoke w/ [facility] nursing supervisor compressed yeast Nicola who recommending speaking with [employer] regarding getting transportation covered as pt states he can not pay for the transportation of $85. [place] approved transportation and will provide payment tomorrow morning. Transportation was set up for 4:30pm with [id number] [phone], confirmed with Holly. [facility] transportation only covers within 10 miles of the hospital; therefore does not cover to patient home. Pt received a hospital bed, wheelchair and commode at home since last week. Pt will be followed up by [address] [phone].
--- NOTE | 2018-07-16 17:50 | NUR ---
Patient in bed talking on the phone. Alert, oriented x 4. No SOB. Complained of pain so given PRN pain medication. Relieved after 30 minutes. Offered educational materials & games for recreational activities. Kept clean & dry. All due meds given. Call light within reach. Bed alarm on & in low position. Kept comfortable.
[2018-07-16] MEDS: SENNA TAB PO SCH (20:41)
[2018-07-16 21:21] VITALS: BP 148/97; PULSE 88; RESP 18
[2018-07-17 02:00] VITALS: BP 131/80; PULSE 83; RESP 18
[2018-07-17] MEDS: HYDROmorphONE 2 MG TAB PO PRN (05:02)
--- NOTE | 2018-07-17 06:43 | NUR ---
PT SLEPT ON OFF DURING THE NIGHT. C/O PAIN ON HIS RIGHT FOOT 01/27, METHADONE AND DILAUDID PO GIVEN PER REQUEST WITH PARTIALLY EFFECTIVE. ALL NEEDS ATTENDED. PT REFUSED BED ALARM. EXPLAINED TO PT RISKS AND BENEFITS BUT PT STILL REFUSED. ENCOURAGE PT TO USE CALL LIGHT FOR HELP. HOURLY ROUNDING MADE.
[2018-07-17] MEDS: HEPARIN 5,000 UNIT/1 ML VIAL SC SCH (08:31)
[2018-07-17] MEDS: FLUTICASONE 0.05% 16 GM NAS SPRAY NASAL SCH (08:33)
[2018-07-17] MEDS: DOCUSATE SODIUM 100 MG CAP PO SCH (08:34)
[2018-07-17] MEDS: RANITIDINE 150 MG TAB PO SCH (08:34)
[2018-07-17] MEDS: BUPROPION (SR) 150 MG TAB PO SCH ×2 (08:35→12:08)
[2018-07-17] MEDS: METHADONE 10 MG TAB PO SCH (08:35)
[2018-07-17] MEDS: LIDOCAINE 5% PATCH TD SCH (08:37)
[2018-07-17 08:43] VITALS: BP 145/77; PULSE 63; RESP 18
--- NOTE | 2018-07-17 11:37 | PN ---
Date/Time of Note Date/Time of Note DATE: 07/17/18 TIME: 11:32 Assessment/Plan VTE Prophylaxis Risk score (from Nsg)>0 risk: 6 SCD applied (from Ns): No SCD contraindicated: other (wound) Pharmacological prophylaxis: heparin Lines/Catheters IV Catheter Type (from Nrs): Saline Lock Urinary Cath still in place: No Assessment/Plan Hospital Course SUBJECTIVE: No acute episodes. Participating with physical therapy. OBJECTIVE: Vital signs-see below PHYSICAL EXAM: Constitutional: Pleasant -Burkinan male not in acute distress.. Psych: nl mood/affect, no complaints Head: atraumatic, normocephalic Eyes: nl conjunctiva, nl sclera ENMT: mucosa pink and moist, nl external ears & nose Neck: non-tender, supple Respiratory: clear to auscultation, normal air movement Cardiovascular: nl pulses, regular rate and rhythm Gastrointestinal: non-tender, soft, bowel sounds active in all 4 quadrants. Musculoskeletal/extremities: Right foot w/ dressing/boot, status post fixation surgery. +Edema noted on right ankle/dorsum of foot. Nl extremities to inspection, motor strength equal bilaterally, no focal deficit. Normal pulses,no cyanosis, Neurological: Alert oriented 3,nl speech, nl strength Skin: nl turgor ASSESSMENT/PLAN: 52-year-old male with sickle cell anemia, underwent right foot podiatric surgical intervention transferred for further physical therapy. 1. Bilateral ankle deformity s/p surgical intervention 06/27/18 -s/p right tibiocalcaneal fusion with autologous bone graft and multiplane external fixator. Will need to remain in fixator for the next 2 months per podiatry.Abx per podiatry -Podiatry on board and appreciate recommendations. 2. ALCON on CKD- stable - Baseline Cr 1.6-1.8 -Stable 3. Chronic leukocytosis. -Monitor 4. Chronic pain - Patient is on methadone as outpatient which is managed by his Crop Research Scientist - On Dilaudid for breakthrough pain as well,Palliative care managing pain medications - Well-controlled. 5. Mood disorder - Continue Wellbutrin TID 6. GERD - H2 eze 7. Sickle cell anemia -Baseline hgb 6.7-7 -stable. Patient refused to be discharged to intermediate facility and he opted to go home with home health. DVT prophylaxis: Heparin PUD prophylaxis: H2 blockers CODE STATUS: Full code Diet: Regular. Patient was seen in collaboration with Exam/Review of Systems Vital Signs Vitals Vital Signs Date Temp Pulse Resp B/P (MAP) Pulse Ox O2 O2 Flow FiO2 Time Delivery Rate 07/17/18 98.4 63 18 145/77 98 Room Air 08:43 (99) Intake and Output 07/16/18 07/16/18 07/17/18 1515:00 23:00 07:00 IntakeIntake Total 1000 ml OutputOutput Total 500 ml 1200 ml BalanceBalance -500 ml -200 ml Medications Medications Current Medications Docusate Sodium (Colace) 100 mg BID PO Last administered on 07/17/18at 08:34; Admin Dose 100 MG; Start 07/01/18 at 21:00 Senna (Senokot) 1 tab HS PO Last administered on 07/02/18at 20:20; Admin Dose 1 TAB; Start 07/01/18 at 21:00 Magnesium Hydroxide (Milk Of Mag) 30 ml BID PRN PO CONSTIPATION; Start 07/01/18 at 13:00 Lactulose (Enulose) 20 gm DAILY PRN PO CONSTIPATION; Start 07/01/18 at 13:00 Bisacodyl (Dulcolax Supp) 10 mg DAILY PRN [place] CONSTIPATION; Start 07/01/18 at 13:00 Acetaminophen (Tylenol Tab) 650 mg Q4H PRN PO PAIN; Start 07/01/18 at 13:00 Miscellaneous Information (Pending [facility] Order For Wound Care) This patient wong... PRN PRN XX wound; Start 07/01/18 at 13:00 Bisacodyl (Dulcolax) 5 mg BID PRN PO CONSTIPATION; Start 07/01/18 at 13:30 Clonidine (Catapres) 0.1 mg Q6H PRN PO HTN; Start 07/01/18 at 13:30 Fluticasone Propionate (Flonase 0.05% Nasal) 1 spray BID NASAL Last administered on 07/17/18at 08:33; Admin Dose 1 SPRAY; Start 07/01/18 at 21:00 Methadone HCl (Methadone) 50 mg BID PO Last administered on 07/17/18at 08:35; Admin Dose 50 MG; Start 07/01/18 at 21:00 Ranitidine HCl (Zantac) 150 mg BID PO Last administered on 07/17/18 08:34; Admin Dose 150 MG; Start 07/01/18 at 21:00 Simethicone (Mylicon) 160 mg Q6H PRN PO ACID Reflux; Start 07/01/18 at 13:30 Heparin Sodium (Porcine) (Heparin (5000 Units/1ml)) 5,000 unit BID SC Last administered on 07/17/18at 08:31; Admin Dose 5,000 UNIT; Start 07/02/18 at 21:00 Hydromorphone HCl (Dilaudid) 4 mg Q4H PRN PO SEVERE PAIN LEVEL 7-10 Last administered on 07/17/18 05:02; Admin Dose 4 MG; Start 07/11/18 at 16:00 Bupropion HCl (Wellbutrin Sr) 150 mg TID@0900,1200,1800 PO Last administered on 07/17/18 08:35; Admin Dose 150 MG; Start 07/11/18 at 18:30 Lidocaine (Lidoderm) 1 patch DAILY TD Last administered on 07/16/18at 08:14; Admin Dose 1 PATCH; Start 07/13/18 at 12:00 Hydromorphone HCl (Dilaudid) 1 mg Q4H PRN IV SEVERE PAIN LEVEL 7-10 Last administered on 07/16/18at 10:22; Admin Dose 1 MG; Start 07/16/18 at 10:00 MORA BETH NP Jul 17, 2018 11:37
--- NOTE | 2018-07-17 11:57 | NUR ---
SOCIAL WORK NOTE: Patient reiterated the need for a ramp, pt states he does not get his check until 07/24. This fiction and nonfiction writer prose called Trinidad [phone] at [place] and negotiated for pt to post date a check for 07/24. Trinidad reports that the laundrette owner of [employer] agreed and the ramp will be delivered no later than Friday 07/20. Staff were made aware and pt still due to d/c home via ambulance at 1:30pm. Addendum: 07/17/18 at 1210 by AYALA AMOR Pt mother and uncle confirm that they will be at pt home to receive him, mother will be there at 2pm, uncle will arrive after 5pm today.
[2018-07-17] MEDS: HYDROmorphONE 2 MG/ML SYG IV PRN (12:08)
--- NOTE | 2018-07-17 13:57 | DS ---
Date/Time of Note Date/Time of Note DATE: 07/17/18 TIME: 13:54 Discharge Summary Admission/Discharge Info Admit Date/Time Jul 01, 2018 at 12:50 Discharge Date/Time Discharge Diagnosis 1. 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 2. Acute on chronic pain syndrome. 3. Sickle cell anemia. 4. Chronic kidney disease. 5. Colitis. 6. Mood disorder. 7. Improvements in self-care and mobility. Patient Condition: Good Hospital Course The patient was admitted for comprehensive interdisciplinary rehabilitation and made steady functional gains from a Mod level to a S/MA level for self care tasks and mobility including wheelchair mobility of 150 feet. Patient is being discharged home with the recommendation of home health PT, OT and RN follow up. The DC meds are per the medication reconciliation sheet. The discharge equipment recommendations include: Wheelchair, BSC, shower chair, and ramp for the few steps to entry for his home. The patient will follow up with PMD and podiatry upon DC. Home Meds Reported Medications Methadone Hcl* (Methadone*) 10 Mg Tab, 10 MG PO Q4 PRN for PAIN LEVEL 6-10, TAB PT TAKES 10 TO 12 TABS Q4 PRN DEPENDING ON PAIN LEVEL. 06/22/18 Bupropion Hcl* (Wellbutrin SR*) 150 Mg Tablet.sa, 150 MG PO TID, TAB.SA 06/22/18 Ranitidine Hcl* (Ranitidine Hcl*) 150 Mg Tablet, 150 MG PO Q12 PRN for DISTENSION/GAS/BLOATING, #60 TAB 06/22/18 Primary Care Provider Not On Staff Doctor FREDERIC SILVA MD Jul 17, 2018 13:57
--- NOTE | 2018-07-17 14:12 | NUR ---
Patient is going to be D/C home today. Patient is alert and breathing even. no SOB. no c/o pain at this time. Discharge instruction given to patient able to understand. medications instructions given. able to understand. Right ankle surgery site with external fixator dressing done. Received order from Isaías DAO to clean surgery site before d/c the patient. Pin sites is dry no drainage, no redness. no s/sx of infection. patient stated that he will call the office and make and appt within 1 week. Patient d/c with Home Health PT/OT and nurse. Dr. Williamson and Isaías DAO agreed to D/C patient.
--- NOTE | 2018-07-17 14:23 | NUR ---
Patient was transported via gurney with [facility].
--- NOTE | 2018-07-22 11:21 | NUR ---
[facility] OT Discharge Summary Date of Discharge: 07/17/18 Patient Name: RERE NIXON MR#: [id number] Height:6 ft 1 in Weight:238 lbs 1.588 oz 108.000 kg Reason for Visit: POLYARTHRITIS DUE TO S/C Precautions: NWB RLE, PWB LLE, elevate RLE on pillow or foam wedge Date: 07/22/18 Time: 1121 User: CLOVIS VIRK Patient's progress, Adm-->DC: Short-term Goals: VRC OT Short term Goal 1 Pt will be Indep w/ Grooming VR OT Short term Goal 2 Pt will be Mod Indep w/ Bathing VR OT Short term Goal 3 Pt will be indep/ mod indep w/ UB/LB dress VR OT Short term Goal 4 Pt will be Mod Indep w/ toileting VR OT Short term Goal 5 Pt will be Mod Indep w/ functional transfers - All goals met except pt req SUP for bathing. Upon initial eval pt functional levels were the following: Grooming: SBA, Bathing: Mod A, UE/LE Dress: SBA/Min A, Toileting: Min A, and Transfers: Min A. Upon D/C pt functional levels were the following: Grooming: Mod I, Bathing: SUP, UE/LE Dress: I/Mod I, Toileting: Mod I, and Transfers: Mod I. Pt made progress towards goals through ADL retraining, transfer training, pt edu, and ther act/ex for CO to ADLs/act john. Barriers to therapy include: 2 days of limited OOB activity per DR., and pt loquacious resulting in moderate redirection to participate. Pt D/C Home with family support and OT PT. Recommend S/C, drop arm commode, and W/C to increase safety and independence at home.
--- NOTE | 2018-07-23 07:52 | NUR ---
[facility] PT Discharge Summary Date of Discharge: 07/17/18 Patient Name: RERE NIXON MR#: [id number] Height: 6 ft 1 in Weight: 238 lbs 1.588 oz 108.000 kg Reason for Visit: POLYARTHRITIS DUE TO S/C Precautions: RLE NWB, LLE PWB, RLE external fixator Date: 07/17/18 Time: 0752 User: MEGAN KIRKLAND Patient's progress, Adm-->DC: Long-term Goals: Bed Mobility Mod Ind Transfers Mod Ind WC mobility Nod Ind 150ft Pt made excellent gains during her stay at [facility]. At the time of eval, pt was min assist for bed mobility, min assist for transfers via scoot pivot transfer, SBA for WC mobility 45ft. At the time of dc, pt was Ind for bed mobility, mod Ind for transfers via scoot pivot transfer, Mod Ind for WC mobility 150ft. Pt met all LTG's. Recommend: manual WC with elevating leg rests and removable arm rests, ramp, drop arm commode, hospital bed, home with HHPT. Pt dc'd home.
== END 2018-07-17 12:20 | disposition home health service (06) | DRG 560 ==
LOC: VRC 07-01 12:50
PROVIDERS: ADMIT Physical Medicine & Rehabilitation; ATTEND Internal Medicine Pulmonary Disease
DX: Z47.89 Encounter for other orthopedic aftercare (principal); N39.0 Urinary tract infection, site not specified; N17.9 Acute kidney failure, unspecified; G89.18 Other acute postprocedural pain; G89.4 Chronic pain syndrome; D57.1 Sickle-cell disease without crisis; Z74.09 Other reduced mobility; K21.9 Gastro-esophageal reflux disease without esophagitis; N18.9 Chronic kidney disease, unspecified; D72.829 Elevated white blood cell count, unspecified; F06.31 Mood disorder due to known physiological condition with depressive features
CPT/HCPCS: 73590; 73630; 80048; 80053; 81001; 85025; 86850; 86900; 86901; 86920; 87081; 87086; 97110; 97162; 97166; 97530; 97535; 97542; J0696; J1170; J1644